=== PATIENT | female | born 1940 | race Caucasian/White ===

== ENCOUNTER → 2017-02-11 | Outpatient (CLI) | payer BC, OTHER ==
[~2017-02-11] MED LIST: CHOL2000 PO; FLUO40CA8 PO; FLUV25TA2 PO; LEVO50TA6 PO; MULTTAB58 PO; OPTIRAY 320 IV PRN; PENI500T2 PO; PRAV40TA2 PO; PRLSR20 PO; TRAMTAB5 PO; VESICARE PO
--- NOTE | 2017-02-11 16:07 | DIAGNOSTIC IMAGING REPORT ---
ABDOMEN AND PELVIS CT WITH IV AND ORAL CONTRAST CT DOSE: 329.65 mGycm HISTORY: Pain LLQ PAIN, MILD WEIGHT LOSS TECHNIQUE: Multiaxial CT images of the abdomen and pelvis were performed following the use of intravenous and oral contrast. COMPARISON STUDY: 09/04/2013 FINDINGS: Minimal bronchiectasis right middle lobe. Lung bases otherwise are clear. Liver is uniform in appearance. Spleen is unremarkable. Left kidney is atrophied. Right kidney shows a parapelvic cyst. IMPRESSION: Moderate increase in fecal material throughout the colon. There is no evidence for an obstructive pattern. There are several small reactive mesenteric nodes. IMPRESSION: 1. Increased fecal load throughout the colon consistent with a component of fecal stasis. 2. Study is otherwise negative. 3. Pre-existing atrophy left kidney. Electronically signed by: Braulio Mantilla M.D. 02/11/2017 4:05 PM Dictated Date/Time: 02/11/2017 4:02 PM
== END | disposition home or self-care (01) ==
LOC: C.CTS 14:45
PROVIDERS: ATTEND Internal Medicine Gastroenterology
DX: R10.32 Left lower quadrant pain (principal); N26.1 Atrophy of kidney (terminal)

== ENCOUNTER 2017-06-23 13:37 | Emergency (ER) | payer BC, OTHER ==
[~2017-06-23] VITALS: Ht 165.1 cm; Wt 58.0 kg
[~2017-06-23 13:37] MED LIST changes: -FLUV25TA2 PO; -OPTIRAY 320 IV PRN; -PENI500T2 PO
[2017-06-23 13:44] VITALS: TEMP 36.3; Ht 165.1 cm; Wt 58.0 kg
--- NOTE | 2017-06-23 14:43 | DIAGNOSTIC IMAGING REPORT ---
CT OF THE HEAD WITHOUT CONTRAST CLINICAL HISTORY: Fall. Facial trauma. COMPARISON STUDY: Head CT February 17, 2011. CT DOSE: 843.67 mGy.cm TECHNIQUE: Helical axial images of the head were obtained without IV contrast. Automated exposure control was utilized for the study. A dose lowering technique was utilized adhering to the principles of ALARA. FINDINGS: No acute intracranial hemorrhage, midline shift or mass effect is present. Ventricular system is stable. Basilar cisterns are patent. There are no extra-axial collections. White matter hypodensity suggests small vessel disease. A left periorbital contusion is present. The left globe is intact and there is no retrobulbar hematoma. There is no calvarial fracture. Facial bones are better depicted on the maxillofacial CT. IMPRESSION: 1. No acute intracranial findings. 2. No calvarial fracture. 3. Left periorbital contusion. Left globe intact with no retrobulbar hematoma. Electronically signed by: Mike Kang M.D. 06/23/2017 2:42 PM Dictated Date/Time: 06/23/2017 2:37 PM
--- NOTE | 2017-06-23 14:46 | DIAGNOSTIC IMAGING REPORT ---
FACIAL BONES-MXILLOFAC WITHOUT CLINICAL HISTORY: 77 years-old Female presenting with fall; L sided facial injury and pain. TECHNIQUE: Multidetector CT of the face was performed without the use of intravenous contrast. IV contrast: None. A dose lowering technique was used consistent with the principles of ALARA (as low as reasonably achievable). COMPARISON: None. CT DOSE (mGy.cm): The estimated cumulative dose is 843.67 inclusive of the head CT.. FINDINGS: [employer] topogram: Unremarkable. Paranasal sinuses and mastoid air cells clear. No acute osseous injury. Periapical lucency noted at the mandibular right central incisor. Periapical lucency with associated cortical breakthrough noted at the mandibular right first premolar along the buccal aspect. At this site, there is overlying inflammatory change along the buccal mucosa. No focal fluid collection to suggest odontogenic abscess. Inflammatory change does extend to the symphyseal region at the site of additional periapical lucency. Deep soft tissues of the face normal. Apparent soft tissue contusion of the left periorbital region. Orbits normal. Degenerative changes of the spine. Limited intracranial evaluation within normal limits. IMPRESSION: 1. No acute osseous injury of the face. 2. Left periorbital soft tissue contusion. 3. Inflammatory change along the buccal mucosa of the right body of the mandible overlying. While this may represent a soft tissue contusion, these findings are concerning for an odontogenic inflammatory/infectious process given the presence of adjacent cortical breakthrough and periapical lucency at the mandibular right first premolar and to a lesser extent at the mandibular right central incisor. Periapical lucencies concerning for periapical abscesses. No evidence of odontogenic abscess. Electronically signed by: Deon Jimenez M.D. 06/23/2017 2:45 PM Dictated Date/Time: 06/23/2017 2:39 PM
[2017-06-23] MEDS ORDERED: FLUV25TA2 PO (14:50)
--- NOTE | 2017-06-23 15:50 | DIAGNOSTIC IMAGING REPORT ---
LEFT HIP UNILATERAL 2 VIEWS CLINICAL HISTORY: Left hip pain status post fall. COMPARISON: CT of the abdomen and pelvis February 11, 2017. FINDINGS: Alignment of the left hip is anatomic. There is no acute fracture. Mild osteophytosis of the left hip is present. IMPRESSION: No acute fracture or dislocation of the left hip. Electronically signed by: Mike Kang M.D. 06/23/2017 3:49 PM Dictated Date/Time: 06/23/2017 3:48 PM
--- NOTE | 2017-06-23 15:53 | DIAGNOSTIC IMAGING REPORT ---
LEFT HAND MIN 3 VIEWS ROUTINE CLINICAL HISTORY: 77 years-old Female presenting with fall; L hand pain. TECHNIQUE: Frontal, oblique, and lateral views of the left hand were obtained. COMPARISON: None. FINDINGS: No acute fracture or malalignment is evident. Osteopenia may be present. Degenerative changes of the interphalangeal joint of the first finger suggested. No regional soft tissue swelling is appreciated. IMPRESSION: No acute osseous injury of the left hand. Degenerative changes as above. Electronically signed by: Deon Jimenez M.D. 06/23/2017 3:51 PM Dictated Date/Time: 06/23/2017 3:50 PM
--- NOTE | 2017-06-23 15:54 | DIAGNOSTIC IMAGING REPORT ---
LEFT RIBS UNILATERAL WITH PA CHEST CLINICAL HISTORY: Left sided rib pain after fall COMPARISON STUDY: Chest radiograph September 17, 2013. FINDINGS: No pneumothorax or pleural effusion is present. Interstitial thickening is likely chronic. No airspace opacities are identified. Cardiac size is normal. No acute left rib fractures are identified. IMPRESSION: No pneumothorax. No acute left rib fractures identified. Electronically signed by: Mike Kang M.D. 06/23/2017 3:52 PM Dictated Date/Time: 06/23/2017 3:49 PM
--- NOTE | 2017-06-23 15:59 | EMERGENCY ROOM VISIT NOTE ---
ED Visit Note First contact with patient: 15:55 I have personally seen and evaluated the patient with the physician assistant teacher. I agree with the diagnostic/management decisions and have personally been involved in these decisions and agree with the diagnosis.
[2017-06-23] MEDS ORDERED: PENI500T2 PO (16:11)
[2017-06-23] MEDS ORDERED: ACETAMINOPHEN 325 MG TAB PO STA (16:13)
[2017-06-23 16:45] VITALS: BP 138/72; PULSE 71; O2SAT 98
--- NOTE | 2017-06-24 14:53 | EMERGENCY ROOM VISIT NOTE ---
ED Visit Note First contact with patient: 13:54 Chief Complaint: I went for walk today and tripped and fell. History of Present Illness: Ms. Lopez is a 77-year-old white female who is brought into the ED via ambulance following a fall. EMS reports patient was stable and had no acute changes en route. Patient reports she went for a walk today, tripped over the uneven sidewalk and fell. She reports she tried to brace her fall but was unsuccessful. She does report she struck the pavement with her forehead and then landed on her ribs. She reports for the injury she was not experiencing any dizziness or lightheadedness, the time of the injury she had no loss of consciousness and since the injury she has had no dizziness, lightheadedness, visual changes, hearing changes, difficulty speaking, difficulty swallowing, difficulty ambulating/coordinating body movements, neck pain, back pain. Currently patient is complaining of pain in the left frontal area in the area of a hematoma, left rib pain, left hand pain and left hip pain. Currently she describes her left rib pain as her worst discomfort. She describes this as a sharp sensation and places it over the left lateral thorax. She rates this discomfort 4/10. Her pain is nonradiating. Her pain worsens with palpation and deep inspiration. She has not identified any alleviating factors related to the pain. She reports she has not had a medications for pain prior to arrival at the hospital. Additionally she complains of pain in the left frontal area just above her eyebrow the location of the hematoma. She describes this of stinging discomfort. She does not rate her discomfort. Her pain worsens with palpation of the superior orbit and the zygomatic arch area. She has not identified any alleviating factors related to the pain. Additionally she complains of left hand pain over the fourth and fifth metacarpals. She describes this as a throbbing sensation. She does not rate her discomfort. Her pain is nonradiating. Her pain worsens with palpation and flexion and extension of the fourth and fifth MCP joint Lastly she complains of left hip pain. She places this discomfort just inferior to the greater trochanter. She describes this pain as an achy sensation. Her pain is nonradiating. She has not identified any aggravating or alleviating factors related to the pain. Additionally she denies chest pain, shortness of breath, abdominal pain, nausea , vomiting, extremity weakness/numbness/tingling. Review of Systems: As noted above in history of present illness. All body systems were reviewed and found to be negative as noted above. Past Medical History: Gastric reflux, unspecified urinary problems, hypothyroidism, profound hearing loss, status post tonsillectomy, adenoidectomy , removal of benign adrenal gland tumor, unspecified left ear surgery. Current Medications: Medications Dose Route/Sig Max Daily Dose Days Date Category Luvox (Fluvoxamine Maleate) Unknown Strength Tab Unknown Dose PO 06/23/17 Reported Levothyroxine Sodium 50 Mcg Tab 1 Tab PO DAILY 09/17/13 Reported Prilosec (Omeprazole) 20 Mg Capcr 20 Mg PO DAILY 09/17/13 Reported Prozac (Fluoxetine HCl) 40 Mg Cap 40 Mg PO DAILY 09/17/13 Reported Allergies to Medications: Patient denies. Social History: Patient is not currently employed; she lives alone and feels safe in her home environment; she denies tobacco use; she admits to alcohol use. Tetanus Immunization Status: Patient reports up-to-date. Physical Examination: Vital Signs: Date Time Temp Pulse Resp B/P (MAP) Pulse Ox O2 Delivery O2 Flow Rate FiO2 06/23/17 16:45 71 18 138/72 98 06/23/17 13:44 36.3 76 18 159/77 97 Room Air GENERAL: 77-year-old female in mild distress due to pain, nontoxic-appearing, afebrile and hemodynamically stable. NEUROLOGICAL: Awake, alert and oriented to person, place and time. Answering questions appropriately and following commands. Normal gait. Good hand eye coordination. No focal motor or sensory deficits. Romberg test negative. Cranial nerves II through XII grossly intact. Good short-term and long-term recall. Normal rapid alternate movements of the hands and fingers. Normal heel fernandez test. Able to draw the face o'clock. Able to spell backwards. SKIN: Warm, dry and pink. Left Frontal Area: Abrasion superior to the superior orbital ridge with no active bleeding. Left Hand: Patient has a few superficial abrasions over the volar and dorsal surface of the hand without bleeding. HEENT: Atraumatic and normocephalic. Skull: No bony deformity, depressions, tenderness, swelling or ecchymosis. No raccoon's eyes or barreto signs. No drainage from the ears of the nostril; no hemotympanum. Face: Soft tissue noted above under SKIN. The area of her abrasion over the left supraorbital ridge is tender to palpation and she also has mild tenderness over the left zygomatic arch. I do not appreciate any bony deformity. There is early ecchymosis forming. PERRLA. EOMI without nystagmus. No malocclusion. Airway patent. No intraoral trauma although after review of CT scan I do note she has multiple areas of decaying teeth and there is erythema and edema over the right mandibular gingiva consistent with an abscess. Speech normal. No lymphadenopathy. Trachea midline. No jugular venous distention. BACK: No tenderness over the bony cervical, thoracic and lumbar spine. Full range of motion of the cervical spine. No tenderness throughout the paraspinous muscles. No CVA tenderness. THORAX: Lungs sounds are clear to auscultation and equal bilaterally with symmetrical chest wall. No wheezing, rales or rhonchi. Moderate tenderness over the lateral chest wall in the areas of ribs 6 through 8. I do not appreciate any bony crepitus, bony deformities, subcutaneous air. ABDOMEN: Flat, soft and nontender. Positive bowel sounds in all quadrants. No guarding, rigidity or organomegaly. PELVIS: Stable and nontender to compression and rock. She did have mild tenderness just inferior to the left great trochanter without bony deformity or crepitus. She has full range of motion of the hip in all directions against resistance. Distal pulses, capillary refill and sensation is intact and equal bilaterally. LEFT UPPER EXTREMITY: No gross bony deformities. No tenderness in the shoulder , humerus, elbow, proximal forearm or wrist. Mild tenderness over the fourth and fifth metacarpals with early bruising. I do not appreciate any bony deformity or crepitus. She has full range of motion in flexion and extension of the MCP, PIP and DIP joints. Throughout the finger the skin was warm and pink and capillary refill is brisk. She is able to distinguish light sensations through all dermatomes. ED Course: Patient is assessed as noted above. Patient's medication list was reviewed. Patient was given ice and 650 mg of acetaminophen by mouth for her pain. PA Chest with Left Rib X-Rays: Were read by myself and the radiologist showing no infiltrates, effusions or pneumothorax. Normal heart silhouette. No left sided rib fractures identified. Left Hand Pain: Was read by myself and the radiologist showing no acute fractures or dislocations. Radiologist notes degenerative changes at the interphalangeal joint of the first finger. Head CT: Was reviewed by myself and read by the radiologist showing no acute intracranial findings or skull fractures. Left periorbital contusion was noted. The globe was intact and there was no retrobulbar hematoma. Facial CT: Was reviewed by myself and read by the radiologist showing no acute fractures of the face. Oncing for abscess. Left Hip X-Rays: Were read by myself and the radiologist showing no acute fractures or dislocations.e again the left periorbital contusion was noted. Additionally radiologist notes inflammatory changes along the right mandible concerning for abscess. Patient's wounds were cleansed with antibacterial soap and water and covered with bacitracin dressings. Patient was reassessed multiple times during her stay in the emergency department. Patient's case was reviewed with Dr. Oseguera; we agreed on diagnostic approach, treatment, disposition and plan. Patient was educated about today's findings and instructed on her treatment plan ; she verbalizes understanding and agreement with this plan. Clinical Impression: Fall. Left frontal facial contusion and abrasion. Left lateral rib pain. Left hand contusion. Left hip pain. Dental abscess. Disposition: Patient discharged home in stable condition; prior to departure she was reassessed and subjectively reported she was feeling much better. Plan: A she was placed on a sliding pain medication scale of ibuprofen, acetaminophen and [place]; her name was checked in the state database and no red flags were noted and she was given appropriate narcotic precautions. Patient was encouraged use ice on areas of pain and swelling 5-6 times a day for 15-20 minutes. Patient was encouraged to wash her wound with soap and water and cover with a small amount of antibiotic. She was educated on signs of infection. Patient was informed an incidental finding of a possible dental abscess was found that she was prescribed 500 mg of Pen-Vee K 4 times a day for 10 days and encouraged to follow-up with her dentist. Patient was encouraged to avoid alcohol use; she was told that alcohol use in the state signs of head injury. Patient was educated on signs of head injury. Patient was encouraged to follow-up with her PCP for recheck for any signs of infection or worsening/uncontrolled pain. Patient was encouraged return ED for any signs of infection, signs of head injury, uncontrolled pain or any new/concerning symptoms.
== END 2017-06-23 16:51 | disposition home or self-care (01) ==
LOC: C.EDB 13:39 → C.EDA 16:51
DX: S00.83XA Contusion of other part of head, initial encounter (principal); S60.222A Contusion of left hand, initial encounter; S00.81XA Abrasion of other part of head, initial encounter; W01.0XXA Fall on same level from slipping, tripping and stumbling without subsequent striking against object, initial encounter; R07.81 Pleurodynia; M25.552 Pain in left hip; K04.7 Periapical abscess without sinus; E03.9 Hypothyroidism, unspecified; K21.9 Gastro-esophageal reflux disease without esophagitis; Z98.890 Other specified postprocedural states; Z79.899 Other long term (current) drug therapy

== ENCOUNTER → 2017-07-19 | Outpatient (CLI) | payer BC, OTHER ==
[~2017-07-19] MED LIST changes: -CHOL2000 PO; +FLUV25TA2 PO; -MULTTAB58 PO; -PRAV40TA2 PO; -TRAMTAB5 PO; -VESICARE PO
--- NOTE | 2017-07-20 07:58 | MAMMOGRAPHY REPORT ---
BILATERAL DIGITAL SCREENING MAMMOGRAM TOMOSYNTHESIS WITH CAD: 07/19/2017 CLINICAL HISTORY: Routine screening. Patient has no complaints. TECHNIQUE: Breast tomosynthesis in addition to standard 2D mammography was performed. Current study was also evaluated with a Computer Aided Detection (CAD) system. COMPARISON: Comparison is made to exams dated: 06/21/2016 mammogram, 06/05/2015 mammogram, 06/04/2014 m ammogram, 05/01/2013 mammogram, 04/18/2012 mammogram, and 04/14/2011 mammogram - [facility] nter. BREAST COMPOSITION: There are scattered areas of fibroglandular density in both breasts. FINDINGS: There is a stable intramammary lymph node in the upper outer quadrant of the left breast, and a few punctate benign-appearing microcalcifications. No suspicious mass, architectural distortio n or cluster of suspicious microcalcifications is seen. IMPRESSION: ACR BI-RADS CATEGORY 1: NEGATIVE There is no mammographic evidence of malignancy. A 1 year screening mammogram is recommended. The pa tient will receive written notification of the results. Approximately 10% of breast cancers are not detected with mammography. A negative mammographic report should not delay biopsy if a clinically suggestive mass is present. Sandra Mcgill M.D. ay/:07/19/2017 22:22:48 [place]: Apryl PICKETT)(M), [facility] letter sent: Normal 1/2 BI-RADS Code: ACR BI-RADS Category 1: Negative
== END | disposition home or self-care (01) ==
LOC: C.MAMM 15:25
PROVIDERS: ATTEND Family Medicine
DX: Z12.31 Encounter for screening mammogram for malignant neoplasm of breast (principal)

== ENCOUNTER 2022-10-15 07:09 | Inpatient (IN) ==
--- NOTE | 2022-10-15 07:24 | Emergency Department Note ---
History of Present Illness General Chief complaint: Urinary Symptoms Time Seen by Provider: 10/15/22 07:20 History of Present Illness This 82-year-old female patient presents to the emergency department via ambula [facility] for evaluation of urinary tract infection symptoms. The patient is a somewhat poor historian, but is able to give a history. Additional history was obtained from EMS and nursing staff. She states that about 2 weeks ago she started feeling queasy in her stomach. She will occasionally get cramps in the LLQ, but they are short lived and resolve. She has a history of alternating constipation and overflow diarrhea for which she takes MiraLAX. Mostly having nausea and urinary symptoms currently. She has been having burning with urination and urinary frequency recently. She had been putting off getting checked out because she had an appt with her manager of medical, but they told her she would need to see her PCP. Her PCP checked her urine and she was diagnosed with a UTI per patient and they started her on Macrobid and Zofran. She has a history of emphysema and a nodule on her lung, but has been coughing more than usual the past couple days. Denies any shortness of breath, but her pulse ox was a little low in the ambulance. Denies any chest pain, abdominal pain, or vomiting. She denies any fevers. Home Medications Medication Instructions Recorded Confirmed Type fluoxetine 40 mg capsule 80 mg PO QAM 10/07/18 08/23/22 History levothyroxine 50 mcg tablet 50 mcg PO QAM 10/07/18 08/23/22 History cholecalciferol (vitamin D3) 25 25 mcg PO DAILY 03/21/20 08/23/22 History mcg (1,000 unit) capsule loratadine 10 mg tablet (Allergy 10 mg PO DAILY 03/21/20 08/23/22 History Relief (loratadine)) vibegron 75 mg tablet (Gemtesa) 75 mg PO DAILY #90 tabs 01/22/22 08/23/22 Rx fluticasone propionate 50 2 spray intranasal DAILY PRN Nasal 04/07/22 08/23/22 Rx mcg/actuation nasal Congestion #15.8 mL spray,suspension Allergies Allergy/AdvReac Type Severity Reaction Status Date / Time No Known Drug Allergies Allergy Verified 08/23/22 13:52 Past Med/Surg History Medical History (Updated 10/15/22 @ 14:11 by Eun Franks PA-C) CKD (chronic kidney disease) Left kidney atrophy, 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 and A total of 10 systems reviewed and were otherwise negative Physical Exam Vital Signs Vital Signs - 24 hr 10/15/22 06:52 10/15/22 08:18 10/15/22 09:40 Temperature 37.6 C H Temperature Source Oral Pulse Rate 98 H Pulse Rate [Apical] 98 H Respiratory Rate 18 18 Respiratory Effort / Characteristics Non-Labored Spontaneous Non-Labored Spontaneous Respiratory Depth Normal Normal Respiratory Pattern Regular Regular Blood Pressure 104/67 Blood Pressure [Right Arm] 104/67 Blood Pressure Mean 79 Blood Pressure Mean [Right Arm] 79 Blood Pressure Position Sitting Blood Pressure Position [Right Arm] Sitting Pulse Oximetry 96 94 88 L Oxygen Delivery Method Room Air Room Air Nasal Cannula Oxygen Flow Rate 3 Sepsis Recent Fever Within 48 Hours No Sepsis New/Unexplained Change in Mental Status N/A Sepsis Action Taken by Nursing No Action Required 10/15/22 09:41 10/15/22 10:00 Temperature Temperature Source Pulse Rate Pulse Rate [Apical] 93 H Respiratory Rate 18 Respiratory Effort / Characteristics Respiratory Depth Respiratory Pattern Blood Pressure Blood Pressure [Right Arm] 104/67 Blood Pressure Mean Blood Pressure Mean [Right Arm] 79 Blood Pressure Position Blood Pressure Position [Right Arm] Pulse Oximetry 96 94 Oxygen Delivery Method Nasal Cannula Nasal Cannula Oxygen Flow Rate 3 3 Sepsis Recent Fever Within 48 Hours Sepsis New/Unexplained Change in Mental Status Sepsis Action Taken by Nursing VITALS: Vitals are noted on the nurse's note and reviewed by myself. GENERAL: 82-year-old female, in no acute distress, non-diaphoretic, well- developed well-nourished. SKIN: Capillary refill <2 sec. No tenting of the skin. HEAD: Normocephalic, atraumatic. EARS: Hearing aids in place. External auditory canals clear, tympanic membranes pearly ballard without erythema or effusion bilaterally. EYES: PERRLA. EOMI. Conjunctivae without injection, sclerae without icterus. NOSE: Patent without discharge. MOUTH: Mucous membranes moist. Uvula midline. Airway patent. NECK: Supple without nuchal rigidity. HEART: Regular rate and rhythm without murmurs gallops or rubs. LUNGS: Clear to auscultation bilaterally without wheezes, rales or rhonchi. No retractions or accessory muscle use. ABDOMEN: Positive bowel sounds x 4. Normal tympanic percussion. Soft, nontend er, without masses or organomegaly. Winston sign negative. No guarding or rebound tenderness. No focal RLQ or LLQ tenderness. MUSCULOSKELETAL: No gross musculoskeletal defects. NEURO: Patient was alert and oriented to person place and time, but is somewhat distractible and goes off on some tangents during history and exam. No focal neurological deficits. Course Administered Medications Discontinued Medications Sodium Chloride (Nss) 500 mls @ 999 mls/hr IV .Q31M ONE Stop: 10/15/22 08:10 Last Infusion: 10/15/22 09:20 Dose: 0 mls/hr Documented By: Admin: 10/15/22 08:47 Dose: 999 mls/hr Documented By: JEFFERY Ondansetron HCl (Ondansetron Inj 2 Mg/Ml 2 Ml Vial) 4 mg IV NOW STA Stop: 10/15/22 07:41 Last Admin: 10/15/22 08:47 Dose: 4 mg Documented By: JEFFERY Medical Decision Making Differential Diagnosis Differential diagnosis includes UTI, constipation, obstruction, gastroenteritis, pancreatitis, cholecystitis, pneumonia, COVID, RSV, influenza, sepsis, OR, other cardiopulmonary etiology, or others. Laboratory Data Attestation: I reviewed the patient's lab results. Result diagrams: 10/15/22 07:47 10/15/22 07:47 Lab Results 10/15/22 10/15/22 10/15/22 Range/Units 07:47 07:47 07:47 WBC 13.03 H (4.8-10.8) K/ul RBC 3.53 L (3.93-5.22) M/uL Hgb 10.0 L (12.0-16.0) g/dl Hct 31.5 L (34.1-44.9) % MCV 89.2 (80.0-100.0) fL MCH 28.3 (25.0-34.0) pg MCHC 31.7 L (32.0-36.0) g/dL RDW Std Deviation 44.9 (36.4-46.3) fL RDW Coeff of Aime 13.7 (11.5-14.5) % Plt Count 470 H (130-400) K/uL MPV 9.6 (9.4-12.3) fL Immature Gran % (Auto) 0.5 % Neut % (Auto) 84.4 % Lymph % (Auto) 6.4 % [place] % (Auto) 7.8 % Eos % (Auto) 0.5 % Baso % (Auto) 0.4 % Neut # (Auto) 10.99 H (1.4-6.5) K/uL Lymph # (Auto) 0.84 L (1.2-3.4) K/uL [place] # (Auto) 1.02 H (0.24-0.82) K/uL Eos # (Auto) 0.07 (0-0.50) K/uL Baso # (Auto) 0.05 (0-0.2) K/uL Immature Gran # (Auto) 0.06 H (0.00-0.02) K/uL Sodium 134 L (136-145) mmol/L Potassium 4.5 (3.5-5.1) mmol/L Chloride 100 (98-107) mmol/L Carbon Dioxide 25 (21-32) mmol/L Anion Gap 9 (3-11) BUN 9 (6-23) mg/dl Creatinine 0.86 (0.6-1.2) mg/dl Est Cr Clr Drug Dosing 42.4 ml/min Est GFR ( Amer) 73.4 ml/min Est GFR (Non-Af Amer) 63.4 ml/min BUN/Creatinine Ratio 10.5 (10-20) Glucose 128 H (70-99(Fasting)) mg/dl Lactate (0.4-2.0) mmol/L Calcium 8.1 L (8.5-10.1) mg/dl Total Bilirubin 0.4 (0.2-1.0) mg/dl AST 18 (13-39) U/L ALT 10 (7-52) U/L Alkaline Phosphatase 72 (34-104) U/L Troponin I High Sens 359.1 H* (0-14) pg/ml Total Protein 7.0 (6.0-8.3) gm/dl Albumin 3.3 L (3.4-5.0) gm/dl Globulin 3.7 (2.5-4.0) gm/dl Albumin/Globulin Ratio 0.9 (0.9-2) Lipase 6 L (11-82) U/L Procalcitonin (0-0.5) ng/ml SARS-CoV-2 (PCR) NEGATIVE (Negative) Influenza Type A (PCR) Negative (Neg) Influenza Type B (PCR) Negative (Neg) RSV (RT-PCR) Negative (Neg) 10/15/22 10/15/22 Range/Units 09:14 09:14 WBC (4.8-10.8) K/ul RBC (3.93-5.22) M/uL Hgb (12.0-16.0) g/dl Hct (34.1-44.9) % MCV (80.0-100.0) fL MCH (25.0-34.0) pg MCHC (32.0-36.0) g/dL RDW Std Deviation (36.4-46.3) fL RDW Coeff of Aime (11.5-14.5) % Plt Count (130-400) K/uL MPV (9.4-12.3) fL Immature Gran % (Auto) % Neut % (Auto) % Lymph % (Auto) % [place] % (Auto) % Eos % (Auto) % Baso % (Auto) % Neut # (Auto) (1.4-6.5) K/uL Lymph # (Auto) (1.2-3.4) K/uL [place] # (Auto) (0.24-0.82) K/uL Eos # (Auto) (0-0.50) K/uL Baso # (Auto) (0-0.2) K/uL Immature Gran # (Auto) (0.00-0.02) K/uL Sodium (136-145) mmol/L Potassium (3.5-5.1) mmol/L Chloride (98-107) mmol/L Carbon Dioxide (21-32) mmol/L Anion Gap (3-11) BUN (6-23) mg/dl Creatinine (0.6-1.2) mg/dl Est Cr Clr Drug Dosing ml/min Est GFR ( Amer) ml/min Est GFR (Non-Af Amer) ml/min BUN/Creatinine Ratio (10-20) Glucose (70-99(Fasting)) mg/dl Lactate 0.9 (0.4-2.0) mmol/L Calcium (8.5-10.1) mg/dl Total Bilirubin (0.2-1.0) mg/dl AST (13-39) U/L ALT (7-52) U/L Alkaline Phosphatase (34-104) U/L Troponin I High Sens (0-14) pg/ml Total Protein (6.0-8.3) gm/dl Albumin (3.4-5.0) gm/dl Globulin (2.5-4.0) gm/dl Albumin/Globulin Ratio (0.9-2) Lipase (11-82) U/L Procalcitonin 0.05 (0-0.5) ng/ml SARS-CoV-2 (PCR) (Negative) Influenza Type A (PCR) (Neg) Influenza Type B (PCR) (Neg) RSV (RT-PCR) (Neg) Imaging Data Radiologist's Impression: Chest X-Ray 10/15/22 07:40 XR chest 1V portable HISTORY: Cough. COMPARISON: Chest CT 10/08/2022. FINDINGS: No pneumothorax. No pleural effusions. There is diffuse interstitial thickening with hazy bilateral airspace opacities most pronounced on the right. This remains unchanged from the prior chest CT. The heart is normal in size. No acute fractures identified. IMPRESSION: No change in the diffuse interstitial thickening and hazy bilateral airspace opacities. This could be due to pulmonary edema or an atypical pneumonitis. ACT 112: Negative or not required by law. Electronically signed by: Brayan Dwyer M.D. 10/15/2022 8:51 AM KUB X-Ray 10/15/22 07:42 KUB CLINICAL HISTORY: Abdominal pain. eval constipation/obstruction COMPARISON STUDY: CT of the abdomen and pelvis February 11, 2017 and KUB January 29, 2022. FINDINGS: There is no evidence for a bowel obstruction. Moderate amount of gas within the rectum is present. There is minimal stool within the rectum. Moderate amount stool within the colon is present. Left abdominal calcifications may be within the cortex of the left kidney. Nonobstructing left renal calculi could appear similar. A left pelvic calcification represents a phlebolith. There is dextroscoliosis of the lumbar spine. IMPRESSION: 1. No evidence for a bowel obstruction. 2. Moderate amount of stool within the colon. Minimal stool within the rectum. ACT 112: Negative or not required by law. Electronically signed by: Mike Kang M.D. 10/15/2022 8:43 AM MDM Narrative I examined the patient. An IV lock was placed and labs are drawn. The patient was placed on 2 L of oxygen by nasal cannula with improvement of her pulse ox to 98%. She was given 500 mL normal saline solution bolus. She was given Zofran 4 mg IV for her nausea. EKG was interpreted by myself and Dr. Soto and shows sinus rhythm at 93 bpm with premature supraventricular complexes with changes in the anterior leads compared to her previous EKGs, but no obvious acute ST or T wave changes. Chest x-ray and KUB reviewed by myself and read by radiology as above and showed possible pulmonary edema or an atypical pneumonitis as well as a moderate amount of stool within the colon and minimal stool within the rectum, but no evidence for obstruction. White blood cell count is elevated at 13.03. Hemoglobin low at 10. Sodium 134 with normal potassium. Glucose slightly elevated at 128. CMP and lipase otherwise unremarkable. High-sensitivity troponin was elevated at 359.1. Urinalysis with trace ketones, but otherwise negative. The patient was independently evaluated by Dr. Soto, who agreed with my assessment and treatment plan. Due to the elevated troponin the patient will be admitted for further evaluation and treatment. The patient currently denies any chest pain, only the nausea and confusion which she thought was secondary to her UTI. Urinalysis currently without evidence for UTI after treatment with outpatient Macrobid. I spoke with the on-call hospitalist who agreed to admit the patient for further evaluation and treatment. Please refer to his dictation for further details. The patient's care was transferred in stable condition. Impression & Plan Elevated troponin, Nausea, Constipation Discharge Plan Visit Data Chief Complaint: Urinary Symptoms ED Provider: Charles Soto ED Midlevel Provider: Eun Franks Discharge Problem: Elevated troponin, Nausea, Constipation Patient Disposition: Admitted As Inpatient Condition: Good Discharge Instructions Interventions: ED Discharge Assessment Last Done: 10/15/22 13:22
[2022-10-15] MEDS ORDERED: ONDANSETRON INJ 2 MG/ML 2 ML VIAL IV STA (07:40)
[2022-10-15] MEDS ORDERED: SODIUM CHLORIDE 0.9% 500 ML IV ONE (07:40)
[2022-10-15 07:59] LABS: Basophils # (auto) 0.05 K/uL (0-0.2); Basophils % (auto) 0.4 %; Eosinophils # (auto) 0.07 K/uL (0-0.50); Eosinophils % (auto) 0.5 %; Hematocrit (blood only) 31.5 % (34.1-44.9); Immature Granulocytes # (auto) 0.06 K/uL (0.00-0.02); Immature Granulocytes % (auto) 0.5 %; Lymphocytes # (auto) 0.84 K/uL (1.2-3.4); Lymphocytes % (auto) 6.4 %; Mean Corpuscular Hemoglobin 28.3 pg (25.0-34.0); Mean Corpuscular Hgb Conc 31.7 g/dL (32.0-36.0); Mean Corpuscular Volume 89.2 fL (80.0-100.0); Mean Platelet Volume 9.6 fL (9.4-12.3); Monocytes # (auto) 1.02 K/uL (0.24-0.82); Monocytes % (auto) 7.8 %; Neutrophils # (auto) 10.99 K/uL (1.4-6.5); Neutrophils % (auto) 84.4 %; Platelet Count 470 K/uL (130-400); RDW Coefficient of Variation 13.7 % (11.5-14.5); RDW Standard Deviation 44.9 fL (36.4-46.3); Red Blood Count 3.53 M/uL (3.93-5.22); White Blood Count 13.03 K/ul (4.8-10.8)
[2022-10-15 08:31] LABS: Potassium 4.5 mmol/L (3.5-5.1)
[2022-10-15 08:32] LABS: Albumin Globulin Ratio 0.9 (0.9-2); Albumin Level 3.3 gm/dl (3.4-5.0); BUN Creatinine Ratio 10.5 (10-20); Bilirubin,Total 0.4 mg/dl (0.2-1.0); Calcium 8.1 mg/dl (8.5-10.1); Creatinine Clr Calc Pharmacy 42.4 ml/min; Est GFR (African American) 73.4 ml/min; Est GFR (Non-African American) 63.4 ml/min; Globulin 3.7 gm/dl (2.5-4.0)
[2022-10-15 08:34] LABS: Troponin I High Sensitivity 359.1 pg/ml (0-14)
--- NOTE | 2022-10-15 08:44 | XRay Report ---
KUB CLINICAL HISTORY: Abdominal pain. eval constipation/obstruction COMPARISON STUDY: CT of the abdomen and pelvis February 11, 2017 and KUB January 29, 2022. FINDINGS: There is no evidence for a bowel obstruction. Moderate amount of gas within the rectum is p resent. There is minimal stool within the rectum. Moderate amount stool within the colon is present. Left abdominal calcifications may be within the cortex of the left kidney. Nonobstructing left renal calculi could appear similar. A left pelvic calcification represents a phlebolith. There is dextrosco liosis of the lumbar spine. IMPRESSION: 1. No evidence for a bowel obstruction. 2. Moderate amount of stool within the colon. Minimal stool within the rectum. ACT 112: Negative or not required by law. Electronically signed by: Mike Kang M.D. 10/15/2022 8:43 AM
[2022-10-15 08:48] LABS: Influenza A virus by PCR Negative (Neg); Influenza B virus by PCR Negative (Neg); RSV by PCR Negative (Neg); SARS CoV2 RNA(COVID-19) Ceph NEGATIVE (Negative)
--- NOTE | 2022-10-15 08:52 | XRay Report ---
XR chest 1V portable HISTORY: Cough. COMPARISON: Chest CT 10/08/2022. FINDINGS: No pneumothorax. No pleural effusions. There is diffuse interstitial thickening with hazy b ilateral airspace opacities most pronounced on the right. This remains unchanged from the prior chest CT. The heart is normal in size. No acute fractures identified. IMPRESSION: No change in the diffuse interstitial thickening and hazy bilateral airspace opacities. This could be due to pulmonary edema or an atypical pneumonitis. ACT 112: Negative or not required by law. Electronically signed by: Brayan Dwyer M.D. 10/15/2022 8:51 AM
--- NOTE | 2022-10-15 09:20 | Emergency Department Note ---
ED Visit Note I have personally evaluated this patient examined her and reviewed the pertinent labs and data. I have discussed the case with Eun, the physician business development assistant and agree with the plan. Please refer to the PA note. This patient was recently treated for UTI she says she has had some weakness she denies any chest pain or shortness of breath from a. She is somewhat of a vague/poor historian. On my exam she is resting comfortably and in no distress. Her troponin is significantly elevated. Her EKG does not show acute STEMI however the anterior leads look slightly different than before. I do think she will need to come in the hospital for further cardiac evaluation. . : Constipation Qualifiers: Constipation type: unspecified constipation type Qualified Code(s): K59.00 - Constipation, unspecified
--- NOTE | 2022-10-15 11:02 | History & Physical Report ---
Date of Service October 15, 2022 Assessment & Plan (1) Elevated troponin: Plan: pt presents with nausea and elevated troponin, there are non specific changes on ECG, pt will be put on aspirin and an echo will be ordered Her symptoms do not sound significant to be cardiac in origin she does have risk factors of history of smoking This may be demand ischemia from her chronic lung disease (2) COPD (chronic obstructive pulmonary disease): Plan: pt has a history of tobacco abuse and pulmonary nodules, previous bx showed non necrotizing granulomatous inflammation, generally not on inhaled medication Patient may be progressing with her lung disease may benefit from a two-step prior to discharge (3) CKD (chronic kidney disease): Plan: Pt has CKD 3 and admission CR is in her baseline (4) Hypothyroidism: Plan: continues on synthroid 50 mcg tsh check on am labs (5) Anxiety: Plan: continues on prozAC 80 MG, she has beed diagnosed with OCD, PTSD and anxiety (6) DVT prophylaxis: Plan: Heparin for DVT prevention History of Present Illness Primary Care Provider: Sam Hays MD 82 F presents to the emergency department via ambulance for evaluation of nausea urinary tract infection symptoms. She states that about 2 weeks ago she started feeling queasy in her stomach, cramps in the LLQ. She has a history of alternating constipation and overflow diarrhea for which she takes MiraLAX. She has been having burning with urination and urinary frequency recently. Her PCP checked her urine and she was diagnosed with a UTI per patient and they started her on Macrobid and Zofran. She has a history of emphysema and a nodule on her lung, she has chronic cough that is non productive. Denies any shortness of breath, but her pulse ox was low in the ambulance. Denies any chest pain, abdominal pain, or vomiting. She denies any fevers. On presentation she has elevated troponin, minor lateral changes on ECG she denies any chest pain pressure palpitations Presentation viral testing was negative for respiratory viruses Allergies Allergy/AdvReac Type Severity Reaction Status Date / Time No Known Drug Allergies Allergy Verified 08/23/22 13:52 Home Medications Medication Instructions Recorded Confirmed Type fluoxetine 40 mg capsule 80 mg PO QAM 10/07/18 08/23/22 History levothyroxine 50 mcg tablet 50 mcg PO QAM 10/07/18 08/23/22 History cholecalciferol (vitamin D3) 25 25 mcg PO DAILY 03/21/20 08/23/22 History mcg (1,000 unit) capsule loratadine 10 mg tablet (Allergy 10 mg PO DAILY 03/21/20 08/23/22 History Relief (loratadine)) vibegron 75 mg tablet (Gemtesa) 75 mg PO DAILY #90 tabs 01/22/22 08/23/22 Rx fluticasone propionate 50 2 spray intranasal DAILY PRN Nasal 04/07/22 08/23/22 Rx mcg/actuation nasal Congestion #15.8 mL spray,suspension Past Med/Surg History Medical History (Updated 10/15/22 @ 11:00 by Randal Jade MD) CKD (chronic kidney disease) Left kidney atrophy, 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 Surgical History H/O total adrenalectomy History of ear surgery STAPEDECTOMY History of nephrectomy History of tonsillectomy and adenoidectomy Family History Mother Diabetes Other Family history non-contributory Social History Smoking Status: Unknown if ever smoked Hx Alcohol Use: Yes Hx Substance Use: No Preferred Language: Welsh Feels Safe at Home: Yes Childhood Exposure to Second-Hand Smoke: No caffeine: Yes (trying to limit as best she can) Seatbelt Use: always Review of Systems Review of Systems: Mild distress and fatigue Patient mostly bothered about urinary frequency and blood in her urine no headache, no visual changes no speech or swallowing issues no chest pain, pressure or palpitations Although shortness of breath was a chief complaint in the ER note the patient denied having shortness of breath to me., Chronic nonproductive cough no abdominal pain, nausea or vomiting, diarrhea or constipation dysuria, hematuria & frequency (patient sees urology) no focal joint pain or swelling no back pain, CVA tenderness or radicular pain no bruising, bleeding or rashes no focal signs of weakness or numbness or altered sensation no complaints of anxiety or depression.. Physical Exam Physical Exam: The patient appeared well nourished and normally developed. Vital signs as documented. Head exam is normocephalic atraumatic She is extremely hard of hearing Neck is without JVD, thyromegaly, or carotid bruits. Lungs are clear to auscultation, no focal loss of breath sounds Cardiac exam, Rhythm is regular.. No murmurs, rubs or gallops. Abdominal exam reveals normal bowel sounds, soft non tender, no masses Extremities are nonedematous and both pedal pulses are present Neurologic exam is alert and oriented, no focal loss of strength or sensation Skin is without bruises or rashes Psychologically is without concerns for anxiety or depression.. Results & Data Results & Data ([facility]) Vital Signs (Past 12 Hours) Vital Signs Temp Pulse Pulse Resp BP BP Pulse Ox 10/15/22 10:00 93 H 18 104/67 94 10/15/22 09:41 96 10/15/22 09:40 88 L 10/15/22 08:18 98 H 18 104/67 94 10/15/22 06:52 99.7 F H 98 H 18 104/67 96 O2 Del Method O2 Flow Rate 10/15/22 10:00 Nasal Cannula 3 10/15/22 09:41 Nasal Cannula 3 10/15/22 09:40 Nasal Cannula 3 10/15/22 08:18 Room Air 10/15/22 06:52 Room Air Diagnostic Findings Chest X-Ray 10/15/22 07:40 XR chest 1V portable HISTORY: Cough. COMPARISON: Chest CT 10/08/2022. FINDINGS: No pneumothorax. No pleural effusions. There is diffuse interstitial thickening with hazy bilateral airspace opacities most pronounced on the right. This remains unchanged from the prior chest CT. The heart is normal in size. No acute fractures identified. IMPRESSION: No change in the diffuse interstitial thickening and hazy bilateral airspace opacities. This could be due to pulmonary edema or an atypical pneumonitis. ACT 112: Negative or not required by law. Electronically signed by: Brayan Dwyer M.D. 10/15/2022 8:51 AM KUB X-Ray 10/15/22 07:42 KUB CLINICAL HISTORY: Abdominal pain. eval constipation/obstruction COMPARISON STUDY: CT of the abdomen and pelvis February 11, 2017 and KUB January 29, 2022. FINDINGS: There is no evidence for a bowel obstruction. Moderate amount of gas within the rectum is present. There is minimal stool within the rectum. Moderate amount stool within the colon is present. Left abdominal calcifications may be within the cortex of the left kidney. Nonobstructing left renal calculi could appear similar. A left pelvic calcification represents a phlebolith. There is dextroscoliosis of the lumbar spine. IMPRESSION: 1. No evidence for a bowel obstruction. 2. Moderate amount of stool within the colon. Minimal stool within the rectum. ACT 112: Negative or not required by law. Electronically signed by: Mike Kang M.D. 10/15/2022 8:43 AM ECG Additional Comments: Sinus rhythm with some changes in the lateral T waves different from old EKG but nondiagnostic PG Care Time/CCT Total # of Minutes Spent Total Time Spent with Patient: Total time spent is greater than 50% in coordination of care (as documented) at patient's floor/unit and/or counseling patient: Coding Level of Care Code 71227 Initial Inpt Care Lvl 3 Diagnoses Elevated troponin R77.8 COPD (chronic obstructive pulmonary disease) J44.9 CKD (chronic kidney disease) N18.9 Hypothyroidism E03.9 Anxiety F41.9 DVT prophylaxis Z29.9
[2022-10-15] MEDS ORDERED: SENNA 8.6 MG TAB PO ONE (13:36)
[2022-10-15] MEDS ORDERED: NITROGLYCERIN SL 0.4 MG/TAB TAB SL PRN (13:36)
[2022-10-15] MEDS ORDERED: ACETAMINOPHEN 325 MG TAB PO PRN (13:36)
[2022-10-15] MEDS ORDERED: PROMETHAZINE HCL 12.5 MG in SODIUM CHLORIDE 0.9% 50 ML IV PRN (13:36)
[2022-10-15] MEDS ORDERED: ALUMINUM/MAGNESIUM SUSP 30 ML UDC PO PRN (13:36)
[2022-10-15] MEDS ORDERED: ONDANSETRON INJ 2 MG/ML 2 ML VIAL IV PRN (13:36)
[2022-10-15 13:54] LABS: Appearance Urine Clear (Clear); Bilirubin Urine Negative (Negative); Blood Urine Negative (Negative); Color Urine Dark Yellow; Glucose Urine UA Negative (Negative); Ketones Urine Trace (Negative); Leukocyte Esterase Urine Negative (Negative); Nitrite Urine Negative (Negative); Protein Urine Negative (Negative); Specific Gravity Urine 1.007 (1.000-1.030); Urobilinogen Urine Negative (Negative)
[2022-10-15] MEDS ORDERED: FAMOTIDINE 20 MG in SYRINGE 3 ML IV ONE (14:00)
[2022-10-15] MEDS: cefTRIAXone SODIUM 1,000 MG in DEXTROSE 5% AD-VAN 50 ML IV SCH (15:23)
--- NOTE | 2022-10-15 17:00 | XCELERA ---
[id number]
[2022-10-15] MEDS: ASPIRIN 81 MG ECTAB PO SCH (17:49)
[2022-10-15] MEDS: FAMOTIDINE 20 MG TAB PO SCH (21:46)
[2022-10-15] MEDS: HEPARIN SOD 5,000 UNIT/0.5 ML VIAL SQ SCH (21:46)
[2022-10-16] MEDS: LEVOTHYROXINE SODIUM 50 MCG TABLET PO SCH (05:57)
--- NOTE | 2022-10-16 06:58 | Electrocardiogram Report ---
Test Reason : Blood Pressure : / mmHG Vent. Rate : 093 BPM Atrial Rate : 093 BPM P-R Int : 136 ms QRS Dur : 080 ms QT Int : 374 ms P-R-T Axes : 009 043 058 degrees QTc Int : 465 ms Poor data quality, interpretation may be adversely affected Sinus rhythm with Premature supraventricular complexes Anterior infarct , age undetermined T wave abnormality, consider anterior ischemia Abnormal ECG When compared with ECG of 18-FEB-2020 08:35, Premature supraventricular complexes are now Present T wave inversion now evident in Anterior leads Confirmed by Jorge Luis Adam ([id number]) on 10/16/2022 6:57:44 AM Referred By: REFERRED SELF Confirmed By:Jorge Luis Adam
[2022-10-16 07:05] LABS: Hematocrit (blood only) 32.1 % (34.1-44.9); Hemoglobin 10.2 g/dl (12.0-16.0); Mean Corpuscular Hemoglobin 28.3 pg (25.0-34.0); Mean Corpuscular Hgb Conc 31.8 g/dL (32.0-36.0); Mean Corpuscular Volume 88.9 fL (80.0-100.0); Mean Platelet Volume 10.1 fL (9.4-12.3); Platelet Count 500 K/uL (130-400); RDW Coefficient of Variation 13.6 % (11.5-14.5); RDW Standard Deviation 44.6 fL (36.4-46.3); Red Blood Count 3.61 M/uL (3.93-5.22); White Blood Count 9.79 K/ul (4.8-10.8)
[2022-10-16 07:23] LABS: BUN Creatinine Ratio 13.9 (10-20); Calcium 8.2 mg/dl (8.5-10.1); Creatinine Clr Calc Pharmacy 50.7 ml/min; Est GFR (Non-African American) 78.5 ml/min; Magnesium 2.1 mg/dl (1.7-2.4); Potassium 4.8 mmol/L (3.5-5.1)
--- NOTE | 2022-10-16 08:24 | Hospitalist Progress Note ---
Date of Service October 16, 2022 Assessment & Plan (1) Elevated troponin: Plan: Presented with LLQ cramps/nausea, UTI sx x 2 weeks with burning/frequency Nausea and elevated troponin, there are non specific changes on ECG, pt will be put on aspirin 81mg daily Trop 359--> 170--> 126. NO CHEST PAIN reported. No further nausea or abdominal pain reported. Suspect demand ischemia from possible UTI/anemia/volume overload -- treatment as outlined Flu/RSV/COVID negative on admit (?if recent viral process) ECHO obtained -- no wma, but does note hyperdynamic systolic function, septal flattening during diastole suggests possible RV volume overload Was seen by pulm in past week, CT chest for monitoring at that time (had been complaining of GI symptoms at that time, ?viral illness vs volume overload) --> 1. Interval development of interlobular septal thickening with perihilar ground-glass airspace opacities most pronounced on the right. This suggests mild interstitial pulmonary edema. An atypical/viral pneumonitis could also have a s imilar appearance. 2. No change in 1.5 cm scarlike density within the right lower lobe. 3. Additional stable right lower lobe nodules measure up to 6 mm. 4. No new or enlarging pulmonary lesions identified. 5. Left axillary lymphadenopathy has improved/resolved. 6. Prominent mediastinal lymph nodes have slightly increased in size. This may be reactive. Continues on ASA 81mg daily -- can continue at dc, again no bleeding reported by patient Pulmonary toilet On 3L NC to maintain sats -- titrate as able as does NOT appear to be on O2 at home Given lasix 20mg PO x 1 for volume overload, monitor response and consider 20mg PO daily. Consider reaching out to her usual pulm doc if continued issues Also checking Iron/B12/folate given anemia w/ hgb in 10s on admit (prior 12s in [id number]), denies bleeding --> iron 19, trans % sat 7. Will order Venofer IV while inpatient. B12 low normal 305 Folate wnl Titrate O2 as able, consider 2 step prior to d/c (2) Hypoxia: Plan: Hx COPD, follows with Dr Squires, just seen last week. Biopsy of pulm nodule showed granulomatous inflammation. CT scan w/ bronchiectasis and multiple pulm nodules --> Needs 6 month f/u imaging Does not appear to be on O2 at home CT chest last week w/ possible mild interstitial pulmonary edema -- an atypical/viral pneumonitis could also have similar appearance ?if recent viral illness w/ +n/v/diarrhea and urinary symptoms. check stool pcr for further eval Flu/RSV/COVID negative on admit CXR No change in the diffuse interstitial thickening and hazy bilateral airspace opacities--> this could be due to pulmonary edema or an atypical pneumonitis. No pleuritic chest pain or hypotension to suggest DVT but not entirely excluded, ECHO w/ RV dilation/mildly reduced systolic function. Consider CTA for PE if no improvement w/ diuretics Currently 95% on 3L Lasix 20mg PO x 1 Check iron studies to r/o anemia causing shortness of breath, Venofer as outlined Added incentive spirometer, mucinex BID, continues on loratadine daily for allergy symptoms Titrate O2 to maintain sats, would 2 step prior to discharge -Add on scheduled duo nebs and azithromycin for atypical coverage in addition to ceftriaxone -Consider pulmonology consultation if not improving -Add on hypertonic saline nebs (3) Anemia: Plan: checking iron/b12/folate as above, hgb in 10s on admit but prior baselines in 10s Does have alternating diarrhea/constipation, will need to inquire about most recent endoscopy if ever had one done. Prior Pulm notes referral to GI but patient wants to see doctor and not [employer]IST or PA and addressing issues with PCP It appears has seen GI in past, [facility], had been placed on miralax/colace and patient developed diarrhea and then that was stopped and started on Metamucil in evening and continue miralax in AM Prior GI notes state patient had been seen by [facility] in past, but wanted 2nd opinion, self reported history of lymphocytic colitis and chronic constipation, seen by [facility] and was at [facility] for second opinion Has had EGD/colonoscopy by Dr Lai and dx w/ colon polyps and esophagitis --> PET CT february 2020 w/o FDG acid disease. Iron studies w/ deficiency -- Venofer IV replacement ordered, continue while inpatient of note, patient is vegetarian. may benefit from PO supplementation at d/c but cautious use in patient w/ baseline constipation/diarrhea issues CBC in AM (4) UTI (urinary tract infection): Plan: Presented with LLQ cramps, nausea, UTI symptoms x 2 weeks with burning/frequency . Hx IBS/constipation/overflow diarrhea. Seen by PCP and dx w/ UTI and started on macrobid/zofran, placed on Ceftriaxone IV on admit UA w/o evidence for UTi, but again did get some macrobid [employer] WBC 13k on admit --> 9.7k Follows with [facility] for overactive bladder, has had PTNS Continue ceftriaxone IV x 3 days inpatient Monitor UOP. (5) COPD (chronic obstructive pulmonary disease): Plan: Hx smoking/pulm nodule, prior bx showed non necrotizing granulomatous inflammation, generally not on inhaled medication but follows with Dr Squires Consider 2 step prior to discharge, meds for COPD exacerbation however denied any sputum changes, no fever, recent UTI as above -Start scheduled DuoNebs and hypertonic saline as above for bronchiectasis and hypoxia (6) CKD (chronic kidney disease): Plan: Cr at baseline, monitor/renal dose meds/avoid nephrotoxic agents as able (7) Hypothyroidism: Plan: TSH wnl on check, 2.741 continues on synthroid 50 mcg daily (8) Anxiety: Plan: On admit ordered prozac, but patient doesnt take this any longer and is on paxil --> changed for medications (refused AM prozac) Hx OCD/PTSD/Anxiety (9) Constipation: Plan: added senna/docusate, no abd pain reported but KUB on admit w/ mod form stool noted (10) Nausea: Plan: reported on admit, ?constipation vs UTI vs hepatic congestion/volume overload Abx for UTI, lasix for overload, senna/docusate for constipation No nausea/vomiting reported currently (11) DVT prophylaxis: Plan: Heparin for DVT prevention Plan Disposition- continued inpatient stay Admission and Anticipated Discharge Date Admission Date: October 15, 2022 Supervising Physician Co-Signing Physician Notes PA Supervision Note: I did not personally see or examine the patient today, but I verified all [place] points of CASSANDRA Acharya's assessment and plan with the following exceptions/additions: Annotations made as above Subjective Evaluated this morning, sitting up in recliner, no acute distress. Remains with supplemental oxygen on but not wearing this at home. She states NOT having chest pain, no chest pain on admit, but there was an enzyme that was up they were worried about. Discussed could have been demand from her UTI -- chronic issues w/ frequency/urgency. She was on an antibiotics but that a yi doctor told her we would be using stronger antibiotics. She also inquired about why getting heparin - discussed DVT proph/less mobile in hospital. Declined this AM but discussed if remains inpatient should be agreeable. Does have issues/ w constipation for days at home, but discussed constipation can make nausea/abdominal pain worse. Rec'd and started stool softener as well. She does believe she has issues with her oxygen and was previously short of breath. Denies sputum production (no cough during exam). Review of Systems Review of Systems: All systems reviewed & are unremarkable except as noted in HPI & below Physical Exam Physical Exam: General: WD/WN female sitting up in liset, gown slightly disheveled, NAD HEENT: head normocephalic, atraumatic, mmm, trachea midline, ?JVD CV: RRR, +murmur, no pitting edema/calf tenderness, chronic venous stasis Resp: CTAB, diminished in the bases with scattered crackles, no wheezing, on 3L NC GI: +BS, nontender, slight distension : no rose MSK/Neuro: no focal deficit/slurred speech Psych: AOx person, place, time, intermittent forgetfulness Results & Data Results & Data ([facility]) Vital Signs (Past 12 Hours) Vital Signs Temp Pulse Pulse Resp BP BP Pulse Ox 10/16/22 08:19 36.4 C L 84 18 143/82 H 95 10/16/22 03:30 36.5 C 85 20 117/72 92 10/15/22 22:00 37 C 87 18 121/75 92 10/15/22 23:30 92 H 10/15/22 22:20 O2 Del Method O2 Flow Rate 10/16/22 08:19 Nasal Cannula 3 10/16/22 03:30 Nasal Cannula 3 10/15/22 22:00 Nasal Cannula 3 10/15/22 23:30 10/15/22 22:20 Nasal Cannula 3 Laboratory Results 10/16/22 10/16/22 10/16/22 Range/Units 09:49 09:49 05:59 WBC (4.8-10.8) K/ul RBC (3.93-5.22) M/uL Hgb (12.0-16.0) g/dl Hct (34.1-44.9) % MCV (80.0-100.0) fL MCH (25.0-34.0) pg MCHC (32.0-36.0) g/dL RDW Std Deviation (36.4-46.3) fL RDW Coeff of Aime (11.5-14.5) % Plt Count (130-400) K/uL MPV (9.4-12.3) fL Sodium (136-145) mmol/L Potassium (3.5-5.1) mmol/L Chloride (98-107) mmol/L Carbon Dioxide (21-32) mmol/L Anion Gap (3-11) BUN (6-23) mg/dl Creatinine (0.6-1.2) mg/dl Est Cr Clr Drug Dosing ml/min Est GFR ( Amer) ml/min Est GFR (Non-Af Amer) ml/min BUN/Creatinine Ratio (10-20) Glucose (70-99(Fasting)) mg/dl Calcium (8.5-10.1) mg/dl Magnesium (1.7-2.4) mg/dl Iron 19 L (35-150) mcg/dl TIBC 263 (250-450) mcg/dl Unsaturated IBC 244 (155-355) mcg/dl Transferrin % Sat 7 L (15-50) % Ferritin 102.7 (8-388) ng/ml Troponin I High Sens (0-14) pg/ml Vitamin B12 305 (180-914) pg/ml Folate 13.40 (>5.38) ng/ml TSH 2.741 (0.300-4.500) uIu/ml Urine Color Urine Appearance (Clear) Urine pH (4.5-7.5) Ur Specific [place] (1.000-1.030) Urine Protein (Negative) Urine Glucose (UA) (Negative) Urine Ketones (Negative) Urine Blood (Negative) Urine Nitrite (Negative) Urine Bilirubin (Negative) Urine Urobilinogen (Negative) Ur Leukocyte Esterase (Negative) 10/16/22 10/16/22 10/15/22 Range/Units 05:59 05:59 21:42 WBC 9.79 (4.8-10.8) K/ul RBC 3.61 L (3.93-5.22) M/uL Hgb 10.2 L (12.0-16.0) g/dl Hct 32.1 L (34.1-44.9) % MCV 88.9 (80.0-100.0) fL MCH 28.3 (25.0-34.0) pg MCHC 31.8 L (32.0-36.0) g/dL RDW Std Deviation 44.6 (36.4-46.3) fL RDW Coeff of Aime 13.6 (11.5-14.5) % Plt Count 500 H (130-400) K/uL MPV 10.1 (9.4-12.3) fL Sodium 138 (136-145) mmol/L Potassium 4.8 (3.5-5.1) mmol/L Chloride 105 (98-107) mmol/L Carbon Dioxide 28 (21-32) mmol/L Anion Gap 5 (3-11) BUN 10 (6-23) mg/dl Creatinine 0.72 (0.6-1.2) mg/dl Est Cr Clr Drug Dosing 50.7 ml/min Est GFR ( Amer) 91.0 ml/min Est GFR (Non-Af Amer) 78.5 ml/min BUN/Creatinine Ratio 13.9 (10-20) Glucose 95 (70-99(Fasting)) mg/dl Calcium 8.2 L (8.5-10.1) mg/dl Magnesium 2.1 (1.7-2.4) mg/dl Iron (35-150) mcg/dl TIBC (250-450) mcg/dl Unsaturated IBC (155-355) mcg/dl Transferrin % Sat (15-50) % Ferritin (8-388) ng/ml Troponin I High Sens 126.0 H* D (0-14) pg/ml Vitamin B12 (180-914) pg/ml Folate (>5.38) ng/ml TSH (0.300-4.500) uIu/ml Urine Color Urine Appearance (Clear) Urine pH (4.5-7.5) Ur Specific [place] (1.000-1.030) Urine Protein (Negative) Urine Glucose (UA) (Negative) Urine Ketones (Negative) Urine Blood (Negative) Urine Nitrite (Negative) Urine Bilirubin (Negative) Urine Urobilinogen (Negative) Ur Leukocyte Esterase (Negative) 12/23/22 12/23/22 Range/Units 16:32 13:20 WBC (4.8-10.8) K/ul RBC (3.93-5.22) M/uL Hgb (12.0-16.0) g/dl Hct (34.1-44.9) % MCV (80.0-100.0) fL MCH (25.0-34.0) pg MCHC (32.0-36.0) g/dL RDW Std Deviation (36.4-46.3) fL RDW Coeff of Aime (11.5-14.5) % Plt Count (130-400) K/uL MPV (9.4-12.3) fL Sodium (136-145) mmol/L Potassium (3.5-5.1) mmol/L Chloride (98-107) mmol/L Carbon Dioxide (21-32) mmol/L Anion Gap (3-11) BUN (6-23) mg/dl Creatinine (0.6-1.2) mg/dl Est Cr Clr Drug Dosing ml/min Est GFR ( Amer) ml/min Est GFR (Non-Af Amer) ml/min BUN/Creatinine Ratio (10-20) Glucose (70-99(Fasting)) mg/dl Calcium (8.5-10.1) mg/dl Magnesium (1.7-2.4) mg/dl Iron (35-150) mcg/dl TIBC (250-450) mcg/dl Unsaturated IBC (155-355) mcg/dl Transferrin % Sat (15-50) % Ferritin (8-388) ng/ml Troponin I High Sens 170.4 H* D (0-14) pg/ml Vitamin B12 (180-914) pg/ml Folate (>5.38) ng/ml TSH (0.300-4.500) uIu/ml Urine Color Dark Yellow Urine Appearance Clear (Clear) Urine pH 7.0 (4.5-7.5) Ur Specific [place] 1.007 (1.000-1.030) Urine Protein Negative (Negative) Urine Glucose (UA) Negative (Negative) Urine Ketones Trace H (Negative) Urine Blood Negative (Negative) Urine Nitrite Negative (Negative) Urine Bilirubin Negative (Negative) Urine Urobilinogen Negative (Negative) Ur Leukocyte Esterase Negative (Negative) Diagnostic Findings Chest X-Ray 10/15/22 07:40 XR chest 1V portable HISTORY: Cough. COMPARISON: Chest CT 10/08/2022. FINDINGS: No pneumothorax. No pleural effusions. There is diffuse interstitial thickening with hazy bilateral airspace opacities most pronounced on the right. This remains unchanged from the prior chest CT. The heart is normal in size. No acute fractures identified. IMPRESSION: No change in the diffuse interstitial thickening and hazy bilateral airspace opacities. This could be due to pulmonary edema or an atypical pneumonitis. ACT 112: Negative or not required by law. Electronically signed by: Brayan Dwyer M.D. 10/15/2022 8:51 AM KUB X-Ray 10/15/22 07:42 KUB CLINICAL HISTORY: Abdominal pain. eval constipation/obstruction COMPARISON STUDY: CT of the abdomen and pelvis February 11, 2017 and KUB January 29, 2022. FINDINGS: There is no evidence for a bowel obstruction. Moderate amount of gas within the rectum is present. There is minimal stool within the rectum. Moderate amount stool within the colon is present. Left abdominal calcifications may be within the cortex of the left kidney. Nonobstructing left renal calculi could appear similar. A left pelvic calcification represents a phlebolith. There is dextroscoliosis of the lumbar spine. IMPRESSION: 1. No evidence for a bowel obstruction. 2. Moderate amount of stool within the colon. Minimal stool within the rectum. ACT 112: Negative or not required by law. Electronically signed by: Mike Kang M.D. 10/15/2022 8:43 AM 10/16 ECHOCARDIOGRAM Normal LV size with hyperdynamic systolic function. EF >70%. No regional wall motion abnormalities. No left ventricular hypertrophy. Septal flattening during diastole suggests possible RV volume overload. Borderline dilated RV with mildly reduced systolic function. No significant valvular abnormalities. Normal est RVSP. no prior study available for comparison PG Care Time/CCT Total # of Minutes Spent Total Time Spent with Patient: Total time spent is greater than 50% in coordination of care (as documented) at patient's floor/unit and/or counseling patient: Coding Level of Care Code 70048 Subseq Hosp Care Lvl 3 Diagnoses Elevated troponin R77.8 Hypoxia R09.02 Anemia D64.9 UTI (urinary tract infection) N39.0 COPD (chronic obstructive pulmonary disease) J44.9 CKD (chronic kidney disease) N18.9 Hypothyroidism E03.9 Anxiety F41.9 Constipation K59.00 Constipation type: unspecified constipation type Nausea R11.0 DVT prophylaxis Z29.9 (1) Constipation Constipation type: unspecified constipation type Qualified Code(s): K59.00 - Constipation, unspecified
[2022-10-16] MEDS ORDERED: FLUoxetine HCL 20 MG CAP PO SCH (09:00)
[2022-10-16] MEDS: cefTRIAXone SODIUM 1,000 MG in DEXTROSE 5% AD-VAN 50 ML IV SCH (09:09)
[2022-10-16] MEDS: ASPIRIN 81 MG ECTAB PO SCH (09:10)
[2022-10-16] MEDS: LORATADINE 10 MG TAB PO SCH (09:10)
[2022-10-16] MEDS: FAMOTIDINE 20 MG TAB PO SCH ×2 (09:10→19:57)
[2022-10-16] MEDS: POLYETHYLENE (MIRALAX) 17 GM PACK PO SCH (09:11)
[2022-10-16] MEDS ORDERED: FUROSEMIDE 20 MG TAB PO ONE (09:52)
[2022-10-16] MEDS: HEPARIN SOD 5,000 UNIT/0.5 ML VIAL SQ SCH ×2 (10:34→19:56)
--- NOTE | 2022-10-16 11:05 | Electrocardiogram Report ---
Test Reason : Blood Pressure : / mmHG Vent. Rate : 083 BPM Atrial Rate : 083 BPM P-R Int : 142 ms QRS Dur : 080 ms QT Int : 386 ms P-R-T Axes : 083 060 050 degrees QTc Int : 453 ms Normal sinus rhythm with sinus arrhythmia RSR' or QR pattern in V1 suggests right ventricular conduction delay Abnormal ECG When compared with ECG of 15-OCT-2022 08:38, (unconfirmed) Premature supraventricular complexes are no longer Present The anterior ST elevation and T wav inversions have resolved Confirmed by William Khan ([id number]) on 10/16/2022 11:04:40 AM Referred By: REFERRED SELF Confirmed By:William Khan
[2022-10-16] MEDS: DOCUSATE SODIUM/SENNA 50/8.6MG TAB PO SCH (11:31)
[2022-10-16] MEDS: FLUTICASONE PROPIONATE NA SPR 16 GM BTL SCH (12:04)
[2022-10-16 12:48] LABS: Ferritin 102.7 ng/ml (8-388)
[2022-10-16] MEDS ORDERED: IRON SUCROSE 300 MG in SODIUM CHLORIDE 0.9% 250 ML IV ONE (14:00)
[2022-10-16] MEDS ORDERED: AZITHROMYCIN 500 MG in DEXTROSE 5% 250 ML IV ONE (17:44)
[2022-10-16] MEDS: guaiFENesin 600 MG TABCR PO SCH (19:56)
[2022-10-16] MEDS: SODIUM CHLOR 7% 4 ML NEB NEB SCH (20:11)
[2022-10-16] MEDS: ALBUT/IPRATROP 3MG/0.5MG NEB 3 ML VIAL NEB SCH (20:11)
[2022-10-17] MEDS: LEVOTHYROXINE SODIUM 50 MCG TABLET PO SCH (05:57)
[2022-10-17 06:30] LABS: Hematocrit (blood only) 32.2 % (34.1-44.9); Hemoglobin 10.2 g/dl (12.0-16.0); Mean Corpuscular Hemoglobin 28.1 pg (25.0-34.0); Mean Corpuscular Hgb Conc 31.7 g/dL (32.0-36.0); Mean Corpuscular Volume 88.7 fL (80.0-100.0); Mean Platelet Volume 9.7 fL (9.4-12.3); Platelet Count 450 K/uL (130-400); RDW Coefficient of Variation 13.5 % (11.5-14.5); RDW Standard Deviation 43.8 fL (36.4-46.3); Red Blood Count 3.63 M/uL (3.93-5.22); White Blood Count 6.94 K/ul (4.8-10.8)
[2022-10-17 06:56] LABS: Calcium 8.2 mg/dl (8.5-10.1); Creatinine Clr Calc Pharmacy 60.8 ml/min; Est GFR (African American) 99.1 ml/min; Est GFR (Non-African American) 85.5 ml/min; Magnesium 2.1 mg/dl (1.7-2.4); Potassium 4.4 mmol/L (3.5-5.1)
[2022-10-17] MEDS: SODIUM CHLOR 7% 4 ML NEB NEB SCH (07:47)
[2022-10-17] MEDS: ALBUT/IPRATROP 3MG/0.5MG NEB 3 ML VIAL NEB SCH (07:47)
[2022-10-17] MEDS ORDERED: ALBUT/IPRATROP 3MG/0.5MG NEB 3 ML VIAL NEB PRN (09:44)
[2022-10-17] MEDS: AZITHROMYCIN 250 MG in DEXTROSE 5% 250 ML IV SCH (09:49)
[2022-10-17] MEDS: cefTRIAXone SODIUM 1,000 MG in DEXTROSE 5% AD-VAN 50 ML IV SCH (09:49)
[2022-10-17] MEDS: ASPIRIN 81 MG ECTAB PO SCH (09:49)
[2022-10-17] MEDS: guaiFENesin 600 MG TABCR PO SCH ×2 (09:50→21:30)
[2022-10-17] MEDS: HEPARIN SOD 5,000 UNIT/0.5 ML VIAL SQ SCH ×2 (09:50→21:30)
[2022-10-17] MEDS: LORATADINE 10 MG TAB PO SCH (09:50)
[2022-10-17] MEDS: DOCUSATE SODIUM/SENNA 50/8.6MG TAB PO SCH (09:50)
[2022-10-17] MEDS: FAMOTIDINE 20 MG TAB PO SCH ×2 (09:50→21:30)
[2022-10-17] MEDS: CYANOCOBALAMIN (B-12) 500 MCG TABLET PO SCH (09:50)
[2022-10-17] MEDS: PARoxetine HCL 20 MG TAB PO SCH (09:51)
[2022-10-17] MEDS: FLUTICASONE PROPIONATE NA SPR 16 GM BTL SCH (09:51)
[2022-10-17] MEDS: POLYETHYLENE (MIRALAX) 17 GM PACK PO SCH (09:52)
--- NOTE | 2022-10-17 10:48 | Hospitalist Progress Note ---
Date of Service October 17, 2022 Assessment & Plan (1) Elevated troponin: Plan: Presented with LLQ cramps/nausea, UTI sx x 2 weeks with burning/frequency Nausea and elevated troponin, there are non specific changes on ECG, pt will be put on aspirin 81mg daily Trop 359--> 170--> 126. NO CHEST PAIN reported. No further nausea or abdominal pain reported. Suspect demand ischemia from possible UTI/anemia/volume overload -- treatment as outlined Flu/RSV/COVID negative on admit (?if recent viral process) ECHO obtained -- no wma, but does note hyperdynamic systolic function, septal flattening during diastole suggests possible RV volume overload Was seen by pulm in past week, CT chest for monitoring at that time (had been complaining of GI symptoms at that time, ?viral illness vs volume overload) --> 1. Interval development of interlobular septal thickening with perihilar ground-glass airspace opacities most pronounced on the right. This suggests mild interstitial pulmonary edema. An atypical/viral pneumonitis could also have a s imilar appearance. 2. No change in 1.5 cm scarlike density within the right lower lobe. 3. Additional stable right lower lobe nodules measure up to 6 mm. 4. No new or enlarging pulmonary lesions identified. 5. Left axillary lymphadenopathy has improved/resolved. 6. Prominent mediastinal lymph nodes have slightly increased in size. This may be reactive. Continues on ASA 81mg daily -- can continue at dc, again no bleeding reported by patient Pulmonary toilet On 3L NC to maintain sats -- titrate as able as does NOT appear to be on O2 at home Given lasix 20mg PO x 1 for volume overload, monitor response and consider 20mg PO daily. Consider reaching out to her usual pulm doc if continued issues Also checking Iron/B12/folate given anemia w/ hgb in 10s on admit (prior 12s in [id number]), denies bleeding --> iron 19, trans % sat 7. Will order Venofer IV while inpatient. B12 low normal 305 Folate wnl Titrate O2 as able, consider 2 step prior to d/c (2) Hypoxia: Plan: Hx COPD, follows with Dr Squires, just seen last week. Biopsy of pulm nodule showed granulomatous inflammation. CT scan w/ bronchiectasis and multiple pulm nodules --> Needs 6 month f/u imaging Does not appear to be on O2 at home CT chest last week w/ possible mild interstitial pulmonary edema -- an atypical/viral pneumonitis could also have similar appearance ?if recent viral illness w/ +n/v/diarrhea and urinary symptoms. check stool pcr for further eval Flu/RSV/COVID negative on admit CXR No change in the diffuse interstitial thickening and hazy bilateral airspace opacities--> this could be due to pulmonary edema or an atypical pneumonitis. No pleuritic chest pain or hypotension to suggest DVT but not entirely excluded, ECHO w/ RV dilation/mildly reduced systolic function. Consider CTA for PE if no improvement w/ diuretics Currently 95% on 3L Lasix 20mg PO x 1 Check iron studies to r/o anemia causing shortness of breath, Venofer as outlined Added incentive spirometer, mucinex BID, continues on loratadine daily for allergy symptoms Titrate O2 to maintain sats, would 2 step prior to discharge -Add on scheduled duo nebs and azithromycin for atypical coverage in addition to ceftriaxone -Consider pulmonology consultation if not improving -Add on hypertonic saline nebs (3) Anemia: Plan: checking iron/b12/folate as above, hgb in 10s on admit but prior baselines in 10s Does have alternating diarrhea/constipation, will need to inquire about most recent endoscopy if ever had one done. 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 and addressing issues with PCP It appears has seen GI in past, [facility] [place] had been placed on miralax/colace and patient developed diarrhea and then that was stopped and started on Metamucil in evening and continue miralax in AM Prior GI notes state patient had been seen by [facility] in past, but wanted 2nd opinion, self reported history of lymphocytic colitis and chronic constipation, seen by [facility] and was at [facility] [place] [facility] for second opinion Has had EGD/colonoscopy by Dr Lai and dx w/ colon polyps and esophagitis --> PET CT february 2020 w/o FDG acid disease. Iron studies w/ deficiency -- Venofer IV replacement ordered, continue while inpatient of note, patient is vegetarian. may benefit from PO supplementation at d/c but cautious use in patient w/ baseline constipation/diarrhea issues CBC in AM (4) UTI (urinary tract infection): Plan: Presented with LLQ cramps, nausea, UTI symptoms x 2 weeks with burning/frequency . Hx IBS/constipation/overflow diarrhea. 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 (5) COPD (chronic obstructive pulmonary disease): Plan: Hx smoking/pulm nodule, prior bx showed non necrotizing granulomatous inflammation, generally not on inhaled medication but follows with Dr Squires Consider 2 step prior to discharge, meds for COPD exacerbation however denied any sputum changes, no fever, recent UTI as above -Start scheduled DuoNebs and hypertonic saline as above for bronchiectasis and hypoxia (6) CKD (chronic kidney disease): Plan: Cr at baseline, monitor/renal dose meds/avoid nephrotoxic agents as able (7) Hypothyroidism: Plan: TSH wnl on check, 2.741 continues on synthroid 50 mcg daily (8) Anxiety: Plan: On admit ordered prozac, but patient doesnt take this any longer and is on paxil --> changed for medications (refused AM prozac) Hx OCD/PTSD/Anxiety (9) Constipation: Plan: added senna/docusate, no abd pain reported but KUB on admit w/ mod form stool noted (10) Nausea: Plan: reported on admit, ?constipation vs UTI vs hepatic congestion/volume overload Abx for UTI, lasix for overload, senna/docusate for constipation No nausea/vomiting reported currently (11) DVT prophylaxis: Plan: Heparin for DVT prevention Plan Disposition- continued inpatient stay Admission and Anticipated Discharge Date Admission Date: October 15, 2022 Subjective Evaluated this morning, sitting up in recliner, no acute distress. Remains with supplemental oxygen on but not wearing this at home. She states NOT having chest pain, no chest pain on admit, but there was an enz yme that was up they were worried about. Discussed could have been demand from her UTI -- chronic issues w/ frequency/urgency. She was on an antibiotics but that a irish doctor told her we would be using stronger antibiotics. She also inquired about why getting heparin - discussed DVT proph/less mobile in hospital. Declined this AM but discussed if remains inpatient should be agreeable. Does have issues/ w constipation for days at home, but discussed constipation can make nausea/abdominal pain worse. Rec'd and started stool softener as well. She does believe she has issues with her oxygen and was previously short of breath. Denies sputum production (no cough during exam). Physical Exam Physical Exam: General: WD/WN female sitting up in liset, gown slightly disheveled, NAD HEENT: head normocephalic, atraumatic, mmm, trachea midline, ?JVD CV: RRR, +murmur, no pitting edema/calf tenderness, chronic venous stasis Resp: CTAB, diminished in the bases with scattered crackles, no wheezing, on 3L NC GI: +BS, nontender, slight distension : no rose MSK/Neuro: no focal deficit/slurred speech Psych: AOx person, place, time, intermittent forgetfulness Results & Data Results & Data ([facility]) Vital Signs (Past 12 Hours) Vital Signs Temp Pulse Resp BP Pulse Ox O2 Del Method O2 Flow Rate 10/17/22 08:28 37.1 C 85 19 133/74 Room Air 10/17/22 07:50 18 Nasal Cannula 2 10/17/22 03:10 37.1 C 82 18 119/61 96 Nasal Cannula 2 PG Care Time/CCT Total # of Minutes Spent Total Time Spent with Patient: Total time spent is greater than 50% in coordination of care (as documented) at patient's floor/unit and/or counseling patient: Coding Diagnoses Elevated troponin R77.8 Hypoxia R09.02 Anemia D64.9 UTI (urinary tract infection) N39.0 COPD (chronic obstructive pulmonary disease) J44.9 CKD (chronic kidney disease) N18.9 Hypothyroidism E03.9 Anxiety F41.9 Constipation K59.00 Constipation type: unspecified constipation type Nausea R11.0 DVT prophylaxis Z29.9 (1) Constipation Constipation type: unspecified constipation type Qualified Code(s): K59.00 - Constipation, unspecified
[2022-10-17] MEDS: IRON SUCROSE 300 MG in SODIUM CHLORIDE 0.9% 250 ML IV SCH (13:09)
--- NOTE | 2022-10-17 14:49 | Electrocardiogram Report ---
Test Reason : Blood Pressure : / mmHG Vent. Rate : 084 BPM Atrial Rate : 084 BPM P-R Int : 142 ms QRS Dur : 082 ms QT Int : 376 ms P-R-T Axes : 027 035 022 degrees QTc Int : 444 ms Normal sinus rhythm with sinus arrhythmia Nonspecific T wave abnormality When compared with ECG of 16-OCT-2022 06:04, Nonspecific T wave abnormality is present Confirmed by William Khan ([id number]) on 10/17/2022 2:48:29 PM Referred By: REFERRED SELF Confirmed By:William Khan
[2022-10-17] MEDS: LACTULOSE SYRUP 30 GM/45 ML UDP PO SCH ×3 (14:52→21:31)
--- NOTE | 2022-10-17 17:38 | Hospitalist Progress Note ---
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 Interval development of interlobular septal thickening with perihilar ground-glass airspace opacities most pronounced on the right. This suggests mild interstitial pulmonary edema. An atypical/viral pneumonitis could also have a similar appearance. 2. No change in 1.5 cm scarlike density within the right lower lobe. 3. Additional stable right lower lobe nodules measure up to 6 mm. 4. No new or enlarging pulmonary lesions identified. 5. Left axillary lymphadenopathy has improved/resolved. 6. Prominent mediastinal lymph nodes have slightly increased in size. This may be reactive. Currently patient on Rocephin and Zithromax -BNP is mildly elevated Serology test for influenza type a therapy RSV and SARS is negative CT chest last week w/ possible mild interstitial pulmonary edema -- an atypical/viral pneumonitis could also have similar appearance CXR No change in the diffuse interstitial thickening and hazy bilateral airspace opacities--> this could be due to pulmonary edema or an atypical pneumonitis -We will check for D-dimer -Continue incentive spirometer, Mucinex, continue hypertonic saline Started on Lasix 40 mg twice daily (2) Elevated troponin: Plan: -Prior trending down, possibly ischemic demand EKG did not show any evidence of acute ischemia Echocardiogram unremarkable (3) Anemia: Plan: Anemia work-up is consistent with iron deficiency anemia Proceed with IV iron transfusi - Does have alternating diarrhea/constipation, will need to inquire about most recent endoscopy if ever had one done -It appears [place] [facility] [place]alax/colace and patient developed diarrhea and then that was stopped and started on Metamucil in evening and continue miralax in AM -prior GI notes state patient had been seen by [facility] in past, but wanted 2nd opinion, self reported history of lymphocytic colitis and chronic constipation, seen by [facility] and was [place] [facility] [facility] [place] Has had EGD/colonoscopy by Dr Lai and dx w/ colon polyps and esophagitis --> PET CT february 2020 w/o FDG acid disease. (4) UTI (urinary tract infection): Plan: Presented with LLQ cramps, nausea, UTI symptoms x 2 weeks with burning/frequency . Hx IBS/constipation/overflow diarrhea. 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 (5) COPD (chronic obstructive pulmonary disease): Plan: Hx smoking/pulm nodule, prior bx showed non necrotizing granulomatous inflammation, generally not on inhaled medication but follows with Dr Squires Consider 2 step prior to discharge, meds for COPD exacerbation however denied any sputum changes, no fever, recent UTI as above -Start scheduled DuoNebs and hypertonic saline as above for bronchiectasis and hypoxia (6) CKD (chronic kidney disease): Plan: Cr at baseline, monitor/renal dose meds/avoid nephrotoxic agents as able (7) Hypothyroidism: Plan: TSH wnl on check, 2.741 continues on synthroid 50 mcg daily (8) Anxiety: Plan: On admit ordered prozac, but patient doesnt take this any longer and is on paxil --> changed for medications (refused AM prozac) Hx OCD/PTSD/Anxiety (9) Constipation: Plan: added senna/docusate, no abd pain reported but KUB on admit w/ mod form stool noted (10) Nausea: Plan: reported on admit, ?constipation vs UTI vs hepatic congestion/volume overload Abx for UTI, lasix for overload, senna/docusate for constipation No nausea/vomiting reported currently (11) DVT prophylaxis: Plan: Heparin for DVT prevention Plan Disposition- continued inpatient stay Admission and Anticipated Discharge Date Admission Date: October 15, 2022 Subjective Patient feels better, however still patient is hypoxic with ambulation, sats are 90% on room air, with ambulation drops the patient is 2 L of oxygen, imaging study showed possible pulmonary congestion, proceeded Lasix 40 mg IV twice daily, strict JL's, BNP is not significantly weight is around 300 Physical Exam Physical Exam: General: WD/WN female sitting up in liset, gown slightly disheveled, NAD HEENT: head normocephalic, atraumatic, mmm, trachea midline, ?JVD CV: RRR, +murmur, no pitting edema/calf tenderness, chronic venous stasis Resp: CTAB, diminished in the bases with scattered crackles, no wheezing, on 3L NC GI: +BS, nontender, slight distension : no rose MSK/Neuro: no focal deficit/slurred speech Psych: AOx person, place, time, intermittent forgetfulness Results & Data Results & Data ([facility]) Vital Signs (Past 12 Hours) Vital Signs Temp Pulse Pulse Pulse Pulse Pulse Pulse 10/17/22 15:32 36.4 C L 80 10/17/22 15:30 10/17/22 13:10 92 H 89 95 H 90 91 H 10/17/22 11:40 10/17/22 08:28 37.1 C 85 10/17/22 07:50 Resp Resp Resp Resp Resp Resp BP 10/17/22 15:32 18 127/75 10/17/22 15:30 10/17/22 13:10 18 18 20 18 18 10/17/22 11:40 10/17/22 08:28 19 133/74 10/17/22 07:50 18 Pulse Ox Pulse Ox Pulse Ox Pulse Ox Pulse Ox Pulse Ox O2 Del Method 10/17/22 15:32 91 Room Air 10/17/22 15:30 Nasal Cannula 10/17/22 13:10 84 L 93 92 93 84 L 10/17/22 11:40 90 Room Air 10/17/22 08:28 Room Air 10/17/22 07:50 Nasal Cannula O2 Flow Rate O2 Flow Rate O2 Flow Rate O2 Flow Rate O2 Flow Rate 10/17/22 15:32 10/17/22 15:30 2 10/17/22 13:10 1 2 2 2 10/17/22 11:40 10/17/22 08:28 10/17/22 07:50 2 PG Care Time/CCT Total # of Minutes Spent Total Time Spent with Patient: Total time spent is greater than 50% in coordination of care (as documented) at patient's floor/unit and/or counseling patient: Coding Level of Care Code 37597 Subseq Hosp Care Lvl 2 Diagnoses Hypoxia R09.02 Elevated troponin R77.8 Anemia D64.9 UTI (urinary tract infection) N39.0 COPD (chronic obstructive pulmonary disease) J44.9 CKD (chronic kidney disease) N18.9 Hypothyroidism E03.9 Anxiety F41.9 Constipation K59.00 Constipation type: unspecified constipation type Nausea R11.0 DVT prophylaxis Z29.9 (1) Constipation Constipation type: unspecified constipation type Qualified Code(s): K59.00 - Constipation, unspecified
[2022-10-17] MEDS: FUROSEMIDE 40 MG/4 ML VIAL IV SCH (21:31)
[2022-10-18 02:36] LABS: Adenovirus F 40/41 PCR Not Detected (NotDetected); Astrovirus PCR Not Detected (NotDetected); Campylobacter PCR Not Detected (NotDetected); Cryptosporidium PCR Not Detected (NotDetected); Cyclospora cayetanensis PCR Not Detected (NotDetected); Entamoeba histolytica PCR Not Detected (NotDetected); Enteroaggregative E.coli(EAEC) Not Detected (NotDetected); Enteropathogenic E.coli (EPEC) Not Detected (NotDetected); Enterotoxigenic E.coli (ETEC) Not Detected (NotDetected); Giardia lamblia PCR Not Detected (NotDetected); Norovirus GI/GII PCR Not Detected (NotDetected); Plesiomonas shigelloides PCR Not Detected (NotDetected); Rotavirus A PCR Not Detected (NotDetected); Salmonella PCR Not Detected (NotDetected); Sapovirus PCR Not Detected (NotDetected); Shiga-like Toxin E.coli (STEC) Not Detected (NotDetected); Shigella/Enteroinvasive E.coli Not Detected (NotDetected); Vibrio cholerae PCR Not Detected (NotDetected); Vibrio species PCR Not Detected (NotDetected); Yersinia enterocolitica PCR Not Detected (NotDetected)
[2022-10-18] MEDS: LEVOTHYROXINE SODIUM 50 MCG TABLET PO SCH (05:55)
[2022-10-18] MEDS: FAMOTIDINE 20 MG TAB PO SCH ×2 (07:44→21:10)
[2022-10-18] MEDS: guaiFENesin 600 MG TABCR PO SCH ×2 (07:44→21:10)
[2022-10-18] MEDS: PARoxetine HCL 20 MG TAB PO SCH (07:45)
[2022-10-18] MEDS: DOCUSATE SODIUM/SENNA 50/8.6MG TAB PO SCH (07:45)
[2022-10-18] MEDS: CYANOCOBALAMIN (B-12) 500 MCG TABLET PO SCH (07:45)
[2022-10-18] MEDS: LACTULOSE SYRUP 30 GM/45 ML UDP PO SCH ×4 (07:46→21:11)
[2022-10-18] MEDS: LORATADINE 10 MG TAB PO SCH (07:46)
[2022-10-18] MEDS: HEPARIN SOD 5,000 UNIT/0.5 ML VIAL SQ SCH ×2 (07:46→21:11)
[2022-10-18] MEDS: ASPIRIN 81 MG ECTAB PO SCH (07:47)
[2022-10-18] MEDS: FUROSEMIDE 40 MG/4 ML VIAL IV SCH ×2 (07:48→21:11)
[2022-10-18] MEDS: FLUTICASONE PROPIONATE NA SPR 16 GM BTL SCH (07:48)
[2022-10-18 07:51] LABS: Hematocrit (blood only) 31.2 % (34.1-44.9); Hemoglobin 10.3 g/dl (12.0-16.0); Mean Corpuscular Hemoglobin 28.6 pg (25.0-34.0); Mean Corpuscular Volume 86.7 fL (80.0-100.0); Mean Platelet Volume 9.5 fL (9.4-12.3); Platelet Count 472 K/uL (130-400); RDW Coefficient of Variation 13.6 % (11.5-14.5); RDW Standard Deviation 42.8 fL (36.4-46.3); White Blood Count 6.86 K/ul (4.8-10.8)
[2022-10-18] MEDS: POLYETHYLENE (MIRALAX) 17 GM PACK PO SCH (07:53)
[2022-10-18] MEDS: IRON SUCROSE 300 MG in SODIUM CHLORIDE 0.9% 250 ML IV SCH (07:54)
[2022-10-18 08:14] LABS: BUN Creatinine Ratio 13.2 (10-20); Calcium 8.6 mg/dl (8.5-10.1); Creatinine Clr Calc Pharmacy 53.7 ml/min; Est GFR (African American) 95.1 ml/min; Magnesium 1.8 mg/dl (1.7-2.4); Potassium 3.6 mmol/L (3.5-5.1)
[2022-10-18] MEDS: AZITHROMYCIN 250 MG in DEXTROSE 5% 250 ML IV SCH (09:34)
--- NOTE | 2022-10-18 16:03 | Pulmonary Consultation ---
Date of Consultation October 18, 2022 Assessment & Plan (1) Hypoxia: Likely multifactorial related to acute exacerbation of her bronchiectasis and volume overload given the elevated BNP and dilated RV noted on echo. I suspect she has an element of RV failure secondary to chronic respiratory disease. Wean FiO2 to maintain saturations above 89%. She likely has an element of chronic hypoxemia. Would recommend a two step on RA prior to discharge to qualify her for supplemental o2 as an outpatient. (2) Bronchiectasis with (acute) exacerbation: She has idiopathic bronchiectasis. It is unclear to me what work-up has been completed up to this point. 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 Squires, including rheumatoid factor, CCP, immunoglobulins, Sjogren's labs, alpha-1 antitrypsin screening and so forth. Given the history of granulomatous nodule on biopsy in 2019, necrobiotic nodule and bronchiectasis from rheumatoid arthritis remains highest on the differential. Other etiologies also include possible sarcoidosis although bronchiectasis is rarely secondary to sarcoidosis We will start the patient on nebulized budesonide, scheduled duonebs, hypertonic saline twice daily and percussive vest therapy. We will add cefepime to azithromycin. I ordered an MRSA screen which was negative. Will order sputum culture and AFB sputum cultures as she is at risk for colonization and/or infection with nontuberculous Mycobacterium given her CT chest findings. If her symptoms remain stable in the next 1-2 days, recommend discharge on Levaquin PO 500 mg for 10 days including the abx received during the hospital stay starting from the first dose of cefepime. (3) Volume overload: Agree with diuresis. Check weights and I's and O's frequently. Plan No further recommendations at this time. Please call with questions. Anticipate d/c back to facility in 1-2 days. Thank you for the interesting consult. History of Present Illness Reason for Consultation: Acute hypoxic Attending Physician: Jeremiah Romero MD History of Present Illness 82-year-old female with a history of bronchiectasis presenting to the hospital due to abdominal discomfort. She follows with Dr. Squires in the pulmonary clinic and last saw him 10/11/2022. She underwent a biopsy of a pulmonary nodule on the right in 2019 which demonstrated nonnecrotizing granulomatous inflammation. She has had prior CT scans which revealed bronchiectasis. Pulmonary is consulted due to hypoxemia and an abnormal CT scan of her chest. She had a PFT performed at [facility] in 2019 which revealed a normal spirometry and no significant obstruction. Lung volumes were unremarkable. DLCO was severely reduced. PET scan in 2019 demonstrated increase in size and a 1.9 cm nodule within the base of the right lower lobe demonstrating intense FDG avidity. She smoked for 55 years and quit approximately 7 years ago. CBC on hospital admission did not reveal any significant eosinophilia. COVID-19 testing, influenza testing and RSV testing were negative on admission. She is currently on Lasix 40 mg twice daily and azithromycin 250 mg daily. She is not on any home inhalers. CT of her chest this admission demonstrates diffuse bronchiectasis with diffuse interlobular septal thickening. No significant pleural effusion or consolidation is seen. Bronchiectasis is particularly severe in the right middle lobe. CT 3 days prior to that did not reveal any significant interlobular septal thickening. Moderate emphysema was seen. BNP this admission was 318 pg/mL. Procalcitonin checked 10/15/2022 was negative. Echo 10/15/2022 with an LVEF of greater than 70%. Borderline dilated RV with mildly reduced systolic function. Normal estimated RVSP. It was very difficult to obtain a relevant history from the patient as she is quite tangential in her thought process. She denies any overt cough, shortness of breath or chest tightness at rest. Her main complaint on admission was abdominal pain which appears to be related to constipation. Allergies Allergy/AdvReac Type Severity Reaction Status Date / Time No Known Drug Allergies Allergy Verified 08/23/22 13:52 Home Medications Medication Instructions Recorded Confirmed Type levothyroxine 50 mcg tablet 50 mcg PO QAM 10/07/18 08/23/22 History cholecalciferol (vitamin D3) 25 25 mcg PO DAILY 03/21/20 08/23/22 History mcg (1,000 unit) capsule loratadine 10 mg tablet (Allergy 10 mg PO DAILY 03/21/20 08/23/22 History Relief (loratadine)) vibegron 75 mg tablet (Gemtesa) 75 mg PO DAILY #90 tabs 01/22/22 08/23/22 Rx fluticasone propionate 50 2 spray intranasal DAILY PRN Nasal 04/07/22 08/23/22 Rx mcg/actuation nasal Congestion #15.8 mL spray,suspension paroxetine HCl 40 mg tablet (Paxil) mg PO DAILY 10/16/22 History Patient History Medical History (Updated 10/18/22 @ 16:04 by Franc Summers MD) Bronchiectasis with (acute) exacerbation CKD (chronic kidney disease) Left kidney atrophy, 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 Volume overload Surgical History H/O total adrenalectomy History of ear surgery STAPEDECTOMY History of nephrectomy History of tonsillectomy and adenoidectomy Family History Mother Diabetes Other Family history non-contributory Social History Smoking Status: Former smoker Hx Alcohol Use: Yes Alcohol type: wine Hx Substance Use: No Preferred Language: Namibian Communication Ability: Effective Gauger Delivery Required: No Beliefs That Will Affect Care: None Current Living Situation: Alone and Senior Living Feels Safe at Home: Yes Safety Concerns: Feels Safe At This Time Childhood Exposure to Second-Hand Smoke: No caffeine: Yes (trying to limit as best she can) Seatbelt Use: always Assistive Devices: None Review of Systems Review of Systems: All systems reviewed & are unremarkable except as noted in HPI & below Physical Exam Physical Exam: Constitutional: Elderly appearing female laying in bed with NC in place in NAD. Eyes: Pupils are equal round and reactive to light. Conjunctivae are normal. Anicteric sclera. Ears nose, mouth and throat: No obvious deformities noted. Neck: Trachea is midline. Visual inspection is normal. Respiratory: Mild crackles in the RLL. No wheezes. No significant tachypnea. Cardiovascular: Regular rate and rhythm. No murmurs. No edema. Gastrointestinal: Normal bowel sounds, soft, nontender and nondistended. No hepatosplenomegaly noted. Musculoskeletal: No cyanosis. Patient is able to move all extremities. Skin: No rashes, warm dry and intact. Neurologic: No obvious focal neurological deficits seen. Psychiatric: Tangential thought process. Normal mood. Results & Data Results & Data ([facility]) Vital Signs (Past 12 Hours) Vital Signs Temp Pulse Pulse Resp BP Pulse Ox O2 Del Method 10/18/22 15:25 36.8 C 87 20 93/57 L 90 Nasal Cannula 10/18/22 11:40 36.6 C 90 20 100/63 90 Nasal Cannula 10/18/22 08:05 36.9 C 82 20 111/66 97 Nasal Cannula 10/18/22 07:22 Nasal Cannula 10/18/22 07:02 89 10/18/22 04:30 36.7 C 93 H 18 104/57 L 91 Nasal Cannula O2 Flow Rate 10/18/22 15:25 2 10/18/22 11:40 2 10/18/22 08:05 2 10/18/22 07:22 2 10/18/22 07:02 10/18/22 04:30 2 PG Care Time/CCT Total # of Minutes Spent Total Time Spent with Patient: Total time spent is greater than 50% in coordination of care (as documented) at patient's floor/unit and/or counseling patient: Coding Level of Care Code 34002 Initial Inpt Care Lvl 3 Diagnoses Hypoxia R09.02 Bronchiectasis with (acute) exacerbation J47.1 Volume overload E87.70
[2022-10-18] MEDS ORDERED: CEFEPIME 2,000 MG in SYRINGE 0 ML IV STA (16:08)
[2022-10-18] MEDS: BUDESONIDE 0.25 MG/2 ML VIAL (PULMICORT) NEB SCH (16:26)
--- NOTE | 2022-10-18 17:40 | Hospitalist Progress Note ---
Date of Service October 18, 2022 Assessment & Plan (1) Hypoxia: Plan: Likely multifactorial related to acute exacerbation of her bronchiectasis and volume overload given the elevated BNP and dilated RV noted on echo. I suspect she has an element of RV failure secondary to chronic respiratory disease. Wean FiO2 to maintain saturations above 89%. (2) Elevated troponin: (3) Anemia: (4) UTI (urinary tract infection): (5) COPD (chronic obstructive pulmonary disease): (6) CKD (chronic kidney disease): (7) Hypothyroidism: (8) Anxiety: (9) Constipation: (10) Nausea: (11) DVT prophylaxis: Admission and Anticipated Discharge Date Admission Date: October 15, 2022 Subjective History patient remained hypoxic, sats running around 88 to 90%, appreciate pulmonary consult, continue IV Lasix, BMP tomorrow, lungs are clear to auscultation, patient has long history of smoking Physical Exam Physical Exam: Constitutional: Patient appears to be of their stated age. Patient is in no apparent distress. Patient is well-developed. Eyes: Pupils are equal round and reactive to light. Conjunctivae are normal. Anicteric sclera. Ears nose, mouth and throat: Mallampati class []. Normal posterior oropharynx. Uvula is midline. Neck: Trachea is midline. Visual inspection is normal. Respiratory: Clear to auscultation bilaterally. No use of accessory muscles. No significant clubbing noted. Cardiovascular: Regular rate and rhythm. No murmurs. No edema. Gastrointestinal: Normal bowel sounds, soft, nontender and nondistended. No hepatosplenomegaly noted. Musculoskeletal: No cyanosis. Patient is able to move all extremities. Strength is 5 out of 5 in the upper and lower extremities. Skin: No rashes, warm dry and intact. Neurologic: No obvious focal neurological deficits seen. Psychiatric: Alert and oriented x3 with a euthymic affect. Results & Data Results & Data ([facility]) Vital Signs (Past 12 Hours) Vital Signs Temp Pulse Pulse Resp BP Pulse Ox O2 Del Method 10/18/22 16:27 80 19 97 Nasal Cannula 10/18/22 15:25 36.8 C 87 20 93/57 L 90 Nasal Cannula 10/18/22 11:40 36.6 C 90 20 100/63 90 Nasal Cannula 10/18/22 08:05 36.9 C 82 20 111/66 97 Nasal Cannula 10/18/22 07:22 Nasal Cannula 10/18/22 07:02 89 O2 Flow Rate 10/18/22 16:27 2 10/18/22 15:25 2 10/18/22 11:40 2 10/18/22 08:05 2 10/18/22 07:22 2 10/18/22 07:02 PG Care Time/CCT Total # of Minutes Spent Total Time Spent with Patient: Total time spent is greater than 50% in coordination of care (as documented) at patient's floor/unit and/or counseling patient: Coding Diagnoses Hypoxia R09.02 Elevated troponin R77.8 Anemia D64.9 UTI (urinary tract infection) N39.0 COPD (chronic obstructive pulmonary disease) J44.9 CKD (chronic kidney disease) N18.9 Hypothyroidism E03.9 Anxiety F41.9 Constipation K59.00 Constipation type: unspecified constipation type Nausea R11.0 DVT prophylaxis Z29.9 (1) Constipation Constipation type: unspecified constipation type Qualified Code(s): K59.00 - Constipation, unspecified
--- NOTE | 2022-10-18 18:29 | Hospitalist Progress Note ---
Date of Service October 18, 2022 Assessment & Plan (1) Hypoxia: Plan: Appreciate pulmonary consult Continue Lasix 40 mg twice daily BMP tomorrow Long history of smoking -Multiple multifactorial, related to exacerbation of her bronchiectasis although there is no wheezing or crackles on exam, patient is empirically being treated with antibiotic at this point, BNP elevated and RV is dilated on echo, started on scheduled DuoNeb nebulized but said this tonight and hypertonic saline and percussive vest therapy, cefepime added to Zithromax per pension fund manager [employer] sputum culture ordered given she is at risk for infection with nontuberculous Mycobacterium given her chest CT finding (2) Anemia: Plan: Work-up consistent with iron deficiency anemia Continue IV iron patient has recent EGD/colonoscopy and diagnosed with colon polyps and esophagitis (3) UTI (urinary tract infection): Plan: The culture is not diagnostic, patient suffering from overactive bladder disorder, received Rocephin for 3 days, patient has a history of IBS/constipation/overflow diarrhea, patient presented with left lower quadrant crampy and UTI symptoms for 2 weeks with burning presented with worsening of 13,000 but now dropped to 9 patient is being followed by urology for overactive bladder (4) COPD (chronic obstructive pulmonary disease): Plan: x smoking/pulm nodule, prior bx showed non necrotizing granulomatous inflammation, generally not on inhaled medication but follows with Dr Squires Consider 2 step prior to discharge, meds for COPD exacerbation however denied any sputum changes, no fever, recent UTI as above -Start scheduled DuoNebs and hypertonic saline as above for bronchiectasis and hypoxia (5) Anxiety: Plan: Continue Paxil (6) Nausea: Plan: Resolved (7) DVT prophylaxis: Plan Continue DuoNeb, continue Lasix intravenously, continue budesonide and hypertonic saline nebulizer treatment Admission and Anticipated Discharge Date Admission Date: October 15, 2022 Subjective Still remain hypoxic, long history of smoking, possible volume overload, appreciate pulmonary consult input Results & Data Results & Data ([facility]) Vital Signs (Past 12 Hours) Vital Signs Temp Pulse Pulse Resp BP Pulse Ox O2 Del Method 10/18/22 16:27 80 19 97 Nasal Cannula 10/18/22 15:25 36.8 C 87 20 93/57 L 90 Nasal Cannula 10/18/22 11:40 36.6 C 90 20 100/63 90 Nasal Cannula 10/18/22 08:05 36.9 C 82 20 111/66 97 Nasal Cannula 10/18/22 07:22 Nasal Cannula 10/18/22 07:02 89 O2 Flow Rate 10/18/22 16:27 2 10/18/22 15:25 2 10/18/22 11:40 2 10/18/22 08:05 2 10/18/22 07:22 2 10/18/22 07:02 PG Care Time/CCT Total # of Minutes Spent Total Time Spent with Patient: Total time spent is greater than 50% in coordination of care (as documented) at patient's floor/unit and/or counseling patient: Coding Level of Care Code 65304 Subseq Hosp Care Lvl 2 Diagnoses Hypoxia R09.02 Anemia D64.9 UTI (urinary tract infection) N39.0 COPD (chronic obstructive pulmonary disease) J44.9 Anxiety F41.9 Nausea R11.0 DVT prophylaxis Z29.9
[2022-10-18] MEDS: ALBUT/IPRATROP 3MG/0.5MG NEB 3 ML VIAL NEB SCH (20:26)
[2022-10-18] MEDS: SODIUM CHLOR 7% 4 ML NEB NEB SCH (20:26)
[2022-10-18] MEDS: CEFEPIME 2,000 MG in SYRINGE 0 ML IV SCH (22:49)
[2022-10-19] MEDS: ALBUT/IPRATROP 3MG/0.5MG NEB 3 ML VIAL NEB SCH ×7 (00:35→23:53)
[2022-10-19] MEDS: LEVOTHYROXINE SODIUM 50 MCG TABLET PO SCH (05:32)
[2022-10-19] MEDS: BUDESONIDE 0.25 MG/2 ML VIAL (PULMICORT) NEB SCH (06:09)
[2022-10-19] MEDS: SODIUM CHLOR 7% 4 ML NEB NEB SCH ×2 (06:09→19:13)
[2022-10-19] MEDS: FUROSEMIDE 40 MG/4 ML VIAL IV SCH (07:10)
[2022-10-19] MEDS: PARoxetine HCL 20 MG TAB PO SCH (07:10)
[2022-10-19] MEDS: FAMOTIDINE 20 MG TAB PO SCH ×2 (07:10→21:05)
[2022-10-19] MEDS: DOCUSATE SODIUM/SENNA 50/8.6MG TAB PO SCH (07:11)
[2022-10-19] MEDS: LORATADINE 10 MG TAB PO SCH (07:11)
[2022-10-19] MEDS: CYANOCOBALAMIN (B-12) 500 MCG TABLET PO SCH (07:12)
[2022-10-19] MEDS: ASPIRIN 81 MG ECTAB PO SCH (07:12)
[2022-10-19] MEDS: guaiFENesin 600 MG TABCR PO SCH ×2 (07:13→21:06)
[2022-10-19] MEDS: FLUTICASONE PROPIONATE NA SPR 16 GM BTL SCH (07:13)
[2022-10-19] MEDS: HEPARIN SOD 5,000 UNIT/0.5 ML VIAL SQ SCH ×3 (07:13→21:08)
[2022-10-19] MEDS: AZITHROMYCIN 250 MG in DEXTROSE 5% 250 ML IV SCH (07:17)
[2022-10-19] MEDS: CEFEPIME 2,000 MG in SYRINGE 0 ML IV SCH ×2 (07:17→15:31)
[2022-10-19 07:18] LABS: Hematocrit (blood only) 32.8 % (34.1-44.9); Hemoglobin 10.4 g/dl (12.0-16.0); Mean Corpuscular Hgb Conc 31.7 g/dL (32.0-36.0); Mean Corpuscular Volume 88.2 fL (80.0-100.0); Mean Platelet Volume 9.6 fL (9.4-12.3); Platelet Count 463 K/uL (130-400); RDW Coefficient of Variation 13.8 % (11.5-14.5); RDW Standard Deviation 44.1 fL (36.4-46.3); Red Blood Count 3.72 M/uL (3.93-5.22); White Blood Count 8.02 K/ul (4.8-10.8)
[2022-10-19] MEDS: POLYETHYLENE (MIRALAX) 17 GM PACK PO SCH (07:18)
[2022-10-19] MEDS: LACTULOSE SYRUP 30 GM/45 ML UDP PO SCH ×5 (07:18→21:09)
[2022-10-19 07:53] LABS: BUN Creatinine Ratio 19.7 (10-20); Calcium 8.4 mg/dl (8.5-10.1); Creatinine Clr Calc Pharmacy 55.3 ml/min; Est GFR (Non-African American) 82.8 ml/min; Potassium 3.5 mmol/L (3.5-5.1)
--- NOTE | 2022-10-19 16:25 | Pulmonology Progress Note ---
Date of Service October 19, 2022 Assessment & Plan (1) Hypoxia: Plan: Likely multifactorial related to acute exacerbation of her bronchiectasis and volume overload given the elevated BNP and dilated RV noted on echo. I suspect she has an element of RV failure secondary to chronic respiratory disease. Wean FiO2 to maintain saturations above 89%. She likely has an element of chronic hypoxemia. Would recommend a two step on RA prior to discharge to qualify her fo r supplemental o2 as an outpatient. (2) Bronchiectasis with (acute) exacerbation: Plan: She has idiopathic bronchiectasis. It is unclear to me what work-up has been completed up to this point. Will defer further work-up to her outpatient shellfish processing laborer, Dr. Squires, including rheumatoid factor, CCP, immunoglobulins, Sjogren's labs, alpha-1 antitrypsin screening and so forth. 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 Other etiologies also include possible sarcoidosis although bronchiectasis is rarely secondary to sarcoidosis Continue nebs, hypertonic saline twice daily and percussive therapy. MRSA scree n was negative. Can likely transition to oral Levaquin upon discharge for a total abx treatment course of 10 days. Patient can be discharged from pulmonary perspective tomorrow. Will order sputum culture and AFB sputum cultures as she is at risk for colonization and/or infection with nontuberculous Mycobacterium given her CT chest findings. Sputum gram stain without organisms. Final cultures pending. AFB sputum cultures were canceled for unclear reasons. Regardless, I am doubtful that the patient would tolerate long-term therapy for nontuberculous Mycobacterium. (3) Volume overload: Plan: Appears to have responded well to diuresis. Maintain euvolemia. Plan No further recommendations at this time. Please call with questions. Will sign off. Thank you. Admission and Anticipated Discharge Date Admission Date: October 15, 2022 Subjective No significant changes. Per nursing, the patient was able to ambulate around the hallways on room air and saturating the mid 90s. She has been assessed by PT who recommends an assisted living facility versus home with family. Review of Systems Review of Systems: Difficult to obtain as the patient is tangential. No obvious complaints. Physical Exam Physical Exam: Constitutional: Elderly appearing female laying in bed with NC in place in NAD. Eyes: Pupils are equal round and reactive to light. Conjunctivae are normal. Anicteric sclera. Ears nose, mouth and throat: No obvious deformities noted. Neck: Trachea is midline. Visual inspection is normal. Respiratory: Mild crackles in the RLL. No wheezes. No significant tachypnea. Cardiovascular: Regular rate and rhythm. No murmurs. No edema. Gastrointestinal: Normal bowel sounds, soft, nontender and nondistended. No hepatosplenomegaly noted. Musculoskeletal: No cyanosis. Patient is able to move all extremities. Skin: No rashes, warm dry and intact. Neurologic: No obvious focal neurological deficits seen. Psychiatric: Tangential thought process. Normal mood. Results & Data Results & Data ([facility]) Vital Signs (Past 12 Hours) Vital Signs Temp Pulse Pulse Resp BP BP Pulse Ox 10/19/22 15:07 36.4 C L 107 H 20 108/66 96 10/19/22 14:57 98 H 18 91 10/19/22 11:30 36.8 C 91 H 20 96/64 L 100 10/19/22 10:31 88 20 94 10/19/22 08:27 10/19/22 07:49 36.9 C 85 20 103/67 93 10/19/22 07:35 89 18 95 10/19/22 07:04 77 10/19/22 07:03 77 O2 Del Method O2 Flow Rate 10/19/22 15:07 Nasal Cannula 2 10/19/22 14:57 Nasal Cannula 2 10/19/22 11:30 Nasal Cannula 2 10/19/22 10:31 Nasal Cannula 2 10/19/22 08:27 Nasal Cannula 2 10/19/22 07:49 Nasal Cannula 2 10/19/22 07:35 Nasal Cannula 2 10/19/22 07:04 10/19/22 07:03 PG Care Time/CCT Total # of Minutes Spent Total Time Spent with Patient: Total time spent is greater than 50% in coordination of care (as documented) at patient's floor/unit and/or counseling patient: Coding Level of Care Code 72373 Subseq Hosp Care Lvl 2 Diagnoses Hypoxia R09.02 Bronchiectasis with (acute) exacerbation J47.1 Volume overload E87.70
--- NOTE | 2022-10-19 19:06 | Hospitalist Progress Note ---
Date of Service October 19, 2022 Assessment & Plan (1) Hypoxia: Plan: Long history of smoking -Multiple multifactorial, related to exacerbation of her bronchiectasis although there is no wheezing or crackles on exam, patient is empirically being treated with antibiotic at this point, BNP elevated and RV is dilated on echo, started on scheduled DuoNeb nebulized but said this tonight and hypertonic saline and percussive vest therapy, cefepime added to Zithromax per decorating supervisor [employer] sputum culture ordered given she is at risk for infection with nontuberculous Mycobacterium given her chest CT finding -Doing better today, Stop IV Lasix on Tuesday. Cefepime Started on Levaquin Started on p.o. Lasix 40 mg daily (2) Anemia: Plan: Work-up consistent with iron deficiency anemia Continue IV iron patient has recent EGD/colonoscopy and diagnosed with colon polyps and esophagitis (3) UTI (urinary tract infection): Plan: The culture is not diagnostic, patient suffering from overactive bladder disorder, received Rocephin for 3 days, patient has a history of IBS/constipation/overflow diarrhea, patient presented with left lower quadrant crampy and UTI symptoms for 2 weeks with burning presented with worsening of 13,000 but now dropped to 9 patient is being followed by urology for overactive bladder (4) COPD (chronic obstructive pulmonary disease): Plan: x smoking/pulm nodule, prior bx showed non necrotizing granulomatous inflammation, generally not on inhaled medication but follows with Dr Squires (5) Anxiety: Plan: Continue Paxil (6) Nausea: Plan: Resolved (7) DVT prophylaxis: Plan Continue DuoNeb, continue Lasix intravenously, continue budesonide and hypertonic saline nebulizer treatment Admission and Anticipated Discharge Date Admission Date: October 15, 2022 Subjective No significant changes. Per nursing, the patient was able to ambulate around the hallways on room air and saturating the mid 90s. She has been assessed by PT who recommends an assisted living facility versus home with family. Physical Exam Physical Exam: Constitutional: Elderly appearing female laying in bed with NC in place in NAD. Eyes: Pupils are equal round and reactive to light. Conjunctivae are normal. Anicteric sclera. Ears nose, mouth and throat: No obvious deformities noted. Neck: Trachea is midline. Visual inspection is normal. Respiratory: Mild crackles in the RLL. No wheezes. No significant tachypnea. Cardiovascular: Regular rate and rhythm. No murmurs. No edema. Gastrointestinal: Normal bowel sounds, soft, nontender and nondistended. No hepatosplenomegaly noted. Musculoskeletal: No cyanosis. Patient is able to move all extremities. Skin: No rashes, warm dry and intact. Neurologic: No obvious focal neurological deficits seen. Psychiatric: Tangential thought process. Normal mood. Results & Data Results & Data ([facility]) Vital Signs (Past 12 Hours) Vital Signs Temp Pulse Pulse Resp BP BP Pulse Ox 10/19/22 15:07 36.4 C L 107 H 20 108/66 96 10/19/22 14:57 98 H 18 91 10/19/22 11:30 36.8 C 91 H 20 96/64 L 100 10/19/22 10:31 88 20 94 10/19/22 08:27 10/19/22 07:49 36.9 C 85 20 103/67 93 10/19/22 07:35 89 18 95 10/19/22 07:04 77 10/19/22 07:03 77 O2 Del Method O2 Flow Rate 10/19/22 15:07 Nasal Cannula 2 10/19/22 14:57 Nasal Cannula 2 10/19/22 11:30 Nasal Cannula 2 10/19/22 10:31 Nasal Cannula 2 10/19/22 08:27 Nasal Cannula 2 10/19/22 07:49 Nasal Cannula 2 10/19/22 07:35 Nasal Cannula 2 10/19/22 07:04 10/19/22 07:03 PG Care Time/CCT Total # of Minutes Spent Total Time Spent with Patient: Total time spent is greater than 50% in coordination of care (as documented) at patient's floor/unit and/or counseling patient: Coding Level of Care Code 40315 Subseq Hosp Care Lvl 2 Diagnoses Hypoxia R09.02 Anemia D64.9 UTI (urinary tract infection) N39.0 COPD (chronic obstructive pulmonary disease) J44.9 Anxiety F41.9 Nausea R11.0 DVT prophylaxis Z29.9
[2022-10-19] MEDS ORDERED: COUGH DROP (SUGAR FREE) LOZ 24 LOZ/1 BOX BUCCAL PRN (19:46)
[2022-10-20] MEDS: ALBUT/IPRATROP 3MG/0.5MG NEB 3 ML VIAL NEB SCH ×4 (02:19→11:17)
[2022-10-20] MEDS: LEVOTHYROXINE SODIUM 50 MCG TABLET PO SCH (05:56)
[2022-10-20] MEDS: BUDESONIDE 0.25 MG/2 ML VIAL (PULMICORT) NEB SCH (06:30)
[2022-10-20] MEDS: SODIUM CHLOR 7% 4 ML NEB NEB SCH (06:30)
[2022-10-20] MEDS ORDERED: AZITHROMYCIN 250 MG TAB PO SCH (09:00)
[2022-10-20] MEDS ORDERED: FUROSEMIDE 40 MG TAB PO SCH (09:00)
[2022-10-20] MEDS: ASPIRIN 81 MG ECTAB PO SCH (09:08)
[2022-10-20] MEDS: CYANOCOBALAMIN (B-12) 500 MCG TABLET PO SCH (09:08)
[2022-10-20] MEDS: FAMOTIDINE 20 MG TAB PO SCH (09:08)
[2022-10-20] MEDS: DOCUSATE SODIUM/SENNA 50/8.6MG TAB PO SCH (09:09)
[2022-10-20] MEDS: guaiFENesin 600 MG TABCR PO SCH (09:09)
[2022-10-20] MEDS: LORATADINE 10 MG TAB PO SCH (09:09)
[2022-10-20] MEDS: PARoxetine HCL 20 MG TAB PO SCH (09:10)
[2022-10-20] MEDS: LACTOBACILLUS ACIDOPHILUS 1 GM PACK PO SCH ×2 (09:10→13:09)
[2022-10-20] MEDS: LACTULOSE SYRUP 30 GM/45 ML UDP PO SCH ×2 (09:12→13:09)
[2022-10-20] MEDS: POLYETHYLENE (MIRALAX) 17 GM PACK PO SCH (09:12)
[2022-10-20] MEDS: HEPARIN SOD 5,000 UNIT/0.5 ML VIAL SQ SCH (09:12)
[2022-10-20] MEDS: FLUTICASONE PROPIONATE NA SPR 16 GM BTL SCH (09:13)
[2022-10-20 09:39] LABS: BUN Creatinine Ratio 14.1 (10-20); Calcium 8.7 mg/dl (8.5-10.1); Creatinine Clr Calc Pharmacy 51.4 ml/min; Est GFR (African American) 92.6 ml/min; Est GFR (Non-African American) 79.9 ml/min; Potassium 3.5 mmol/L (3.5-5.1)
[2022-10-20] MEDS ORDERED: levoFLOXacin 750 MG TAB PO SCH (11:00)
[2022-10-20] MEDS ORDERED: ALBUT/IPRATROP 3MG/0.5MG NEB 3 ML VIAL NEB PRN (12:12)
--- NOTE | 2022-10-20 19:41 | Discharge Summary ---
Date of Service October 20, 2022 Admission HPI Per Admitting Provider [id number] F presents to the emergency department via ambulance for evaluation of nausea urinary tract infection symptoms. She states that about 2 weeks ago she started feeling queasy in her stomach, cramps in the LLQ. She has a history of alternating constipation and overflow diarrhea for which she takes MiraLAX. She has been having burning with urination and urinary frequency recently. Her PCP checked her urine and she was diagnosed with a UTI per patient and they started her on Macrobid and Zofran. She has a history of emphysema and a nodule on her lung, she has chronic cough that is non productive. Denies any shortness of breath, but her pulse ox was low in the ambulance. Denies any chest pain, abdominal pain, or vomiting. She denies any fevers. On presentation she has elevated troponin, minor lateral changes on ECG she denies any chest pain pressure palpitations Presentation viral testing was negative for respiratory viruses Principal Diagnosis #Acute hypoxic respiratory failure multifactorial, combination of diastolic heart failure, bronchiectasis #Acute diastolic heart failure #Severe iron deficiency anemia possibly secondary to diet #UTI #Severe constipation Discharge Exam Constitutional: Elderly appearing female laying in bed with NC in place in NAD. Eyes: Pupils are equal round and reactive to light. Conjunctivae are normal. Anicteric sclera. Ears nose, mouth and throat: No obvious deformities noted. Neck: Trachea is midline. Visual inspection is normal. Respiratory: Mild crackles in the RLL. No wheezes. No significant tachypnea. Cardiovascular: Regular rate and rhythm. No murmurs. No edema. Gastrointestinal: Normal bowel sounds, soft, nontender and nondistended. No hepatosplenomegaly noted. Musculoskeletal: No cyanosis. Patient is able to move all extremities. Skin: No rashes, warm dry and intact. Neurologic: No obvious focal neurological deficits seen. Psychiatric: Tangential thought process. Normal mood. Discharge Data Allergies Allergy/AdvReac Type Severity Reaction Status Date / Time No Known Drug Allergies Allergy Verified 08/23/22 13:52 Consultations 10/15/22 12:08 ED Decision to Admit Stat 10/18/22 14:51 Consult Pulmonology Routine Hospital Course (1) Hypoxia: Long history of smoking -Multiple multifactorial, related to exacerbation of her bronchiectasis although there is no wheezing or crackles on exam, patient is empirically being treated with antibiotic at this point, BNP elevated and RV is dilated on echo, started o n scheduled DuoNeb nebulized b, hypertonic saline and percussive vest therapy, cefepime added to Zithromax per disability manager [employer] sputum culture ordered given she is at risk for infection with nontub erculous Mycobacterium given her chest CT finding -Discussed with consulting disability manager, recommend to discharge patient on Levaquin, patient was discharged on 10-day course of Levaquin which provided Discharged on Lasix 40 mg daily BMP in 1 week Follow-up with disability manager in 2 weeks -Defer to primary care doctor if the patient requested follow-up with cardiology (2) Anemia: Work-up consistent with iron deficiency anemia IV iron - patient has recent EGD/colonoscopy -Possibly because of the diet patient is a vegetarian, patient is advised to have iron rich vegetables on her meal, patient discharged on iron pill (3) UTI (urinary tract infection): The culture is not diagnostic, patient suffering from overactive bladder disorder, received Rocephin for 3 days, patient has a history of IBS/constipation/overflow diarrhea, patient presented with left lower quadrant crampy and UTI symptoms for 2 weeks with burning presented with worsening of 13,000 but now dropped to 9 patient is being followed by urology for overactive bladder (4) Constipation: Severe constipation, started patient on lactulose MiraLAX, (5) COPD (chronic obstructive pulmonary disease): x smoking/pulm nodule, prior bx showed non necrotizing granulomatous inflammation, generally not on inhaled medication but follows with Dr Squires (6) Anxiety: Continue Paxil (7) Nausea: Resolved (8) DVT prophylaxis: Plan Continue DuoNeb, continue Lasix intravenously, continue budesonide and hypertonic saline nebulizer treatment Total Time Total Time Spent Total Time Spent (In Minutes): 45 Discharge Plan Discharge Items Patient Disposition: Home - Self-Care Reason For Visit: UTI Discharge Diagnosis: CHF , Iron deficiency Anemia, UTI , acute hypoxia, Bronchiectasis , acute pulmonary process Condition on Discharge: Good Activity: Resume your previous activity Lifting: Gradually increase as tolerated Sexual Activity: When tolerated Driving/Machine Use: No limitations Weightbearing: Full weightbearing Non-emergency contact: Primary Care Provider and Sleeper Cutter Call non-emergency contact if: you have any medication questions, your symptoms worsen and your pain is not controlled Follow-up/Referrals: Sam Hays MD [Primary Care Provider] - Diet: Heart Healthy Addtl Attending Provider Instructions: Please follow with your disability manager in one week. You are suffering from Iron Deficiency Anemia , given you are vegetarians please have Iron rich vegetables on your diet. please follow with a popped corn oven attendant for severe Iron deficency anemia Pending Studies at Discharge: No Stand-Alone Forms: My [facility], Smoking Cessation Medications and DC Order Prescriptions: New furosemide 40 mg Tablet 40 mg PO QAM Qty: 30 0RF levofloxacin 750 mg Tablet 750 mg PO DAILY@1100 Qty: 7 0RF Lactobacillus acidoph-L.bulgar [Floranex] 100 million cell Granules In Packet 1 g PO TIDM Qty: 30 0RF polyethylene glycol 3350 [Miralax] 17 gram Powder In Packet 17 g PO DAILY Qty: 30 0RF aspirin 81 mg Tablet,Delayed Release (Dr/Ec) 81 mg PO QAM Qty: 30 0RF William-Sequels (iron-vit c) 200 mg (65 mg iron)-25 mg tablet extended release 1 tab PO DAILY Qty: 90 0RF lactulose 10 gram/15 mL solution 20 g PO QID PRN (Reason: constipation) Qty: 237 0RF Continued fluticasone propionate 50 mcg/actuation spray,suspension 2 spray INTNAS DAILY PRN (Reason: Nasal Congestion) Qty: 15.8 6RF Rx Instructions: administer into each nostril EVERY MORNING cholecalciferol (vitamin D3) 25 mcg (1,000 unit) capsule 25 mcg PO DAILY loratadine [Allergy Relief (loratadine)] 10 mg tablet 10 mg PO DAILY Gemtesa 75 mg tablet 75 mg PO DAILY Qty: 90 1RF levothyroxine 50 mcg tablet 50 mcg PO QAM paroxetine HCl [Paxil] 40 mg tablet PO DAILY Discharge Orders: Discharge Order (Routine); Ordered 10/20/22 Ordered By: Jeremiah Sims/Other Patient Handouts: Understanding Bronchiectasis, ED COPD Flare Admission Data Admit Date/Time: 10/15/22 11:15 Attending Provider: Jeremiah Romero Admit Provider: Randal Jade Primary Care Provider: Sam Hays Other Providers: Randal Jade ; Ángela Gordon ; Franc Summers Other Interventions: Discharge Summary Assessment (RN) Last Done: 10/20/22 13:25 Coding Level of Care Code D/C DAY MANAGEMENT >30 MINS Diagnoses Hypoxia R09.02 Anemia D64.9 UTI (urinary tract infection) N39.0 Constipation K59.00 Constipation type: unspecified constipation type COPD (chronic obstructive pulmonary disease) J44.9 Anxiety F41.9 Nausea R11.0 DVT prophylaxis Z29.9
== END 2022-10-20 15:15 | disposition home or self-care (01) | DRG 689 ==
LOC: ED 07:09 → EDINP 11:15 → SUATTDRO 11:15 → 2N 13:22

== ENCOUNTER 2022-10-31 08:57 | Inpatient (IN) ==
--- NOTE | 2022-10-31 09:31 | XRay Report ---
XR chest 1V portable HISTORY: weakness COMPARISON: Chest 10/15/2022. FINDINGS: No pneumothorax. No pleural effusions. The cardiac silhouette is normal in size. Mild diffu se interstitial thickening persists. No new focal lung consolidations identified. IMPRESSION: No change in the diffuse interstitial thickening which could be chronic. ACT 112: Negative or not required by law. Electronically signed by: Brayan Dwyer M.D. 10/31/2022 9:29 AM
--- NOTE | 2022-10-31 09:39 | Emergency Department Note ---
Impression & Plan Hypoxia, Nausea, Weakness, Acute dehydration, Dizziness, Leukocytosis ED Provider Note NAME: DARWIN CORREA AGE: 82 SEX: F : 1940 ARRIVES VIA: Ambulance INFORMANT: [Patient][ems, nursing] ED PROVIDER(S): [Keo Early MD] CHIEF COMPLAINT: Illness HISTORY OF PRESENT ILLNESS: The patient is an 82-year-old female presents with nausea, dizziness and weakness. She was recently in the hospital around 10 days ago. She was in for volume overload and a potential UTI. She was discharged on a week of [facility]. Patient presents back today with pretty much the same symptoms as she noted with her last hospitalization. She complains of being thirsty and quite nauseated. She is quite weak and cannot function at home. She does live alone. The patient was not discharged from the hospital on oxygen. As per nursing staff, the patient's O2 saturation was 87% upon arrival. O2 was applied and her O2 saturation improved. The patient is concerned that she may have a UTI, she has not had fever. No increased cough. PMHx/PSHx: See Below SOCIAL HISTORY: See Below. PHYSICAL EXAM: GENERAL: Patient is in no acute distress. HEENT: No acute trauma, normocephalic atraumatic, mucous membranes dry, no nasal congestion NECK: No stridor, no adenopathy, no meningismus, trachea is midline. LUNGS: Clear to auscultation bilaterally, no wheeze, no rhonchi, breath sounds equal. Breath sounds are diminished bilaterally. HEART: Mildly tachycardic, no obvious murmur, regular rhythm. ABDOMEN: Soft, nontender, bowel sounds positive, no peritonitis. EXTREMITIES: No cyanosis or edema, full range of motion of all the joints without pain or difficulty, no signs for acute trauma. NEUROLOGIC: Oriented x 3, no acute motor or sensory deficits, no focal weakness. SKIN: No rash, no jaundice, no diaphoresis. DIFFERENTIAL DIAGNOSIS: Infection, UTI, dehydration, COVID-19, RSV, influenza, metabolic abnormality, hypo/hyperglycemia, electrolyte disturbance, anemia, hypoxia, cardiac sources, intracerebral event, stroke, TIA, as well as other pathologies. EMERGENCY DEPARTMENT COURSE/PROCEDURES: Prior/Outside records reviewed: EMS sheet/documentation, previous hospitalization discharge records. ECG per my interpretation: Indication was weakness. The ECG shows a sinus tachycardia with a rate of 101. There is no ST elevation, no PVCs. There is some baseline artifact. The QTc is 448. Continuous Cardiac Monitoring per my interpretation: An order was placed for continuous cardiac monitoring. The monitor shows a rate of 102 with sinus tachycardia. MEDICAL DECISION MAKING: There is a very mild leukocytosis, this could be consistent with infection or the stress of her current situation. There was a normal hemoglobin and platelet count. No renal failure or significant electrolyte abnormality. No concerning liver enzyme elevation. ECG showed a sinus tachycardia, no ST elevation. Cardiac enzyme testing x1 was not consistent with acute cardiac injury. Chest x-ray shows some chronic parenchymal change, no CHF or pneumonia. BNP was not elevated making fluid overload unlikely. The patient appeared to be in a euthyroid state. Urinalysis shows some contamination, no infection. COVID, influenza and RSV test were negative. On exam, the patient appeared quite dehydrated. She was awake and interactive. No focal neurologic finding. No fever. Patient received oral fluids as well as IV saline. She was given IV Zofran for nausea. She required O2 supplementation to keep her O2 saturation over 90%. The patient lives alone, she is hypoxic, she is weak, she is not functioning well on her own and appears acutely dehydrated. She mentioned to the nursing staff that she may at this point in her life, require assisted living or fdc care. The patient is in need of a hospital stay, further hydration/care. She may eventually require placement at a care facility. I did speak with the patient at length, I talked to case management, the on-call hospitalist was consulted. DISPOSITION: Patient has some social issues, dehydration, hypoxia, weakness that all would warrant a hospital stay. 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 Volume overload Surgical History H/O total adrenalectomy History of ear surgery STAPEDECTOMY History of nephrectomy History of tonsillectomy and adenoidectomy Family History Mother Diabetes Other Family history non-contributory Social History Smoking Status: Former smoker Hx Alcohol Use: Yes Alcohol type: wine Hx Substance Use: No Preferred Language: Faroese Communication Ability: Effective Mill Oiler Required: No Beliefs That Will Affect Care: None Current Living Situation: Alone and [facility] Feels Safe at Home: Yes Childhood Exposure to Second-Hand Smoke: No caffeine: Yes (trying to limit as best she can) Seatbelt Use: always Assistive Devices: None Allergies Allergies Allergy/AdvReac Type Severity Reaction Status Date / Time No Known Drug Allergies Allergy Verified 08/23/22 13:52 Home Meds Home Medications Medication Instructions Recorded Confirmed levothyroxine 50 mcg tablet 50 mcg PO QAM 10/07/18 08/23/22 cholecalciferol (vitamin D3) 25 25 mcg PO DAILY 03/21/20 08/23/22 mcg (1,000 unit) capsule loratadine 10 mg tablet (Allergy 10 mg PO DAILY 03/21/20 08/23/22 Relief (loratadine)) paroxetine HCl 40 mg tablet (Paxil) mg PO DAILY 10/16/22 Previous Rx's Medication Instructions Recorded vibegron 75 mg tablet (Gemtesa) 75 mg PO DAILY #90 tabs 01/22/22 fluticasone propionate 50 2 spray intranasal DAILY PRN Nasal 04/07/22 mcg/actuation nasal Congestion #15.8 mL spray,suspension Lactobacillus acidophilus, 1 g PO TIDM #30 ea 10/20/22 bulgaricus 100 million cell granules packet (Floranex) aspirin 81 mg tablet,delayed 81 mg PO QAM #30 tabs 10/20/22 release ferrous fumarate 200 mg (65 mg 1 tab PO DAILY #90 tabs 10/20/22 iron)-vit C 25 mg tablet,extend release (William-Sequels (iron-vit c)) furosemide 40 mg tablet 40 mg PO QAM #30 tabs 10/20/22 lactulose 10 gram/15 mL oral 20 g (30 mL) PO QID PRN 10/20/22 solution constipation #237 mL levofloxacin 750 mg tablet 750 mg PO DAILY@1100 #7 tabs 10/20/22 polyethylene glycol 3350 17 gram 17 g PO DAILY #30 ea 10/20/22 oral powder packet (Miralax) Results & Data (ED) Vital Signs Vital Signs - 24 hr 10/31/22 09:12 10/31/22 09:12 10/31/22 09:18 Temperature 37.1 C Temperature Source Oral Oral Pulse Rate 101 H Respiratory Rate 16 Blood Pressure 137/83 Blood Pressure Mean 101 Pulse Oximetry 87 L Oxygen Delivery Method Room Air Room Air Sepsis Recent Fever Within 48 Hours No Sepsis New/Unexplained Change in Mental Status No Sepsis Action Taken by Nursing No Action Required Home Medications Current Medication List: was personally reviewed by me Laboratory Data Attestation: I reviewed the patient's lab results. 10/31/22 09:30 10/31/22 09:30 Lab Results 10/31/22 10/31/22 10/31/22 Range/Units 09:10 09:30 09:30 WBC 11.22 H (4.8-10.8) K/ul RBC 4.30 (3.93-5.22) M/uL Hgb 12.2 (12.0-16.0) g/dl Hct 38.0 (34.1-44.9) % MCV 88.4 (80.0-100.0) fL MCH 28.4 (25.0-34.0) pg MCHC 32.1 (32.0-36.0) g/dL RDW Std Deviation 48.4 H (36.4-46.3) fL RDW Coeff of Aime 15.1 H (11.5-14.5) % Plt Count 252 (130-400) K/uL MPV 10.3 (9.4-12.3) fL Immature Gran % (Auto) 0.4 % Neut % (Auto) 91.4 % Lymph % (Auto) 3.2 % [place] % (Auto) 3.7 % Eos % (Auto) 1.0 % Baso % (Auto) 0.3 % Neut # (Auto) 10.26 H (1.4-6.5) K/uL Lymph # (Auto) 0.36 L (1.2-3.4) K/uL [place] # (Auto) 0.42 (0.24-0.82) K/uL Eos # (Auto) 0.11 (0-0.50) K/uL Baso # (Auto) 0.03 (0-0.2) K/uL Immature Gran # (Auto) 0.04 H (0.00-0.02) K/uL Sodium 138 (136-145) mmol/L Potassium 3.5 (3.5-5.1) mmol/L Chloride 103 (98-107) mmol/L Carbon Dioxide 29 (21-32) mmol/L Anion Gap 6 (3-11) BUN 16 (6-23) mg/dl Creatinine 0.80 (0.6-1.2) mg/dl Est Cr Clr Drug Dosing 44.3 ml/min Est GFR ( Amer) 80.1 ml/min Est GFR (Non-Af Amer) 69.1 ml/min BUN/Creatinine Ratio 20.0 (10-20) Glucose 106 H (70-99(Fasting)) mg/dl Calcium 9.2 (8.5-10.1) mg/dl Magnesium 1.9 (1.7-2.4) mg/dl Total Bilirubin 0.5 (0.2-1.0) mg/dl AST 22 (13-39) U/L ALT 10 (7-52) U/L Alkaline Phosphatase 60 (34-104) U/L Troponin I High Sens 5.1 (0-14) pg/ml B-Natriuretic Peptide (0-100) pg/ml Total Protein 7.2 (6.0-8.3) gm/dl Albumin 3.5 (3.4-5.0) gm/dl Globulin 3.7 (2.5-4.0) gm/dl Albumin/Globulin Ratio 0.9 (0.9-2) TSH (0.300-4.500) uIu/ml Urine Color Urine Appearance (Clear) Urine pH (4.5-7.5) Ur Specific [place] (1.000-1.030) Urine Protein (Negative) Urine Glucose (UA) (Negative) Urine Ketones (Negative) Urine Blood (Negative) Urine Nitrite (Negative) Urine Bilirubin (Negative) Urine Urobilinogen (Negative) Ur Leukocyte Esterase (Negative) Urine WBC (Auto) (0-5) /hpf Urine RBC (Auto) (0-4) /hpf U Hyaline Cast (Auto) (0-5) /lpf U Epithel Cells (Auto) (0-5) /lpf Urine Bacteria (Auto) (Negative) SARS-CoV-2 (PCR) NEGATIVE (Negative) Influenza Type A (PCR) Negative (Neg) Influenza Type B (PCR) Negative (Neg) RSV (RT-PCR) Negative (Neg) 10/31/22 10/31/22 10/31/22 Range/Units 09:30 09:30 10:20 WBC (4.8-10.8) K/ul RBC (3.93-5.22) M/uL Hgb (12.0-16.0) g/dl Hct (34.1-44.9) % MCV (80.0-100.0) fL MCH (25.0-34.0) pg MCHC (32.0-36.0) g/dL RDW Std Deviation (36.4-46.3) fL RDW Coeff of Aime (11.5-14.5) % Plt Count (130-400) K/uL MPV (9.4-12.3) fL Immature Gran % (Auto) % Neut % (Auto) % Lymph % (Auto) % [place] % (Auto) % Eos % (Auto) % Baso % (Auto) % Neut # (Auto) (1.4-6.5) K/uL Lymph # (Auto) (1.2-3.4) K/uL [place] # (Auto) (0.24-0.82) K/uL Eos # (Auto) (0-0.50) K/uL Baso # (Auto) (0-0.2) K/uL Immature Gran # (Auto) (0.00-0.02) K/uL Sodium (136-145) mmol/L Potassium (3.5-5.1) mmol/L Chloride (98-107) mmol/L Carbon Dioxide (21-32) mmol/L Anion Gap (3-11) BUN (6-23) mg/dl Creatinine (0.6-1.2) mg/dl Est Cr Clr Drug Dosing ml/min Est GFR ( Amer) ml/min Est GFR (Non-Af Amer) ml/min BUN/Creatinine Ratio (10-20) Glucose (70-99(Fasting)) mg/dl Calcium (8.5-10.1) mg/dl Magnesium (1.7-2.4) mg/dl Total Bilirubin (0.2-1.0) mg/dl AST (13-39) U/L ALT (7-52) U/L Alkaline Phosphatase (34-104) U/L Troponin I High Sens (0-14) pg/ml B-Natriuretic Peptide 68 (0-100) pg/ml Total Protein (6.0-8.3) gm/dl Albumin (3.4-5.0) gm/dl Globulin (2.5-4.0) gm/dl Albumin/Globulin Ratio (0.9-2) TSH 2.239 (0.300-4.500) uIu/ml Urine Color Yellow Urine Appearance Cloudy A (Clear) Urine pH 8.5 H (4.5-7.5) Ur Specific [place] 1.011 (1.000-1.030) Urine Protein Negative (Negative) Urine Glucose (UA) Negative (Negative) Urine Ketones Negative (Negative) Urine Blood Negative (Negative) Urine Nitrite Negative (Negative) Urine Bilirubin Negative (Negative) Urine Urobilinogen Negative (Negative) Ur Leukocyte Esterase Negative (Negative) Urine WBC (Auto) 1-5 (0-5) /hpf Urine RBC (Auto) 0-4 (0-4) /hpf U Hyaline Cast (Auto) 1-5 (0-5) /lpf U Epithel Cells (Auto) 10-20 H (0-5) /lpf Urine Bacteria (Auto) Negative (Negative) SARS-CoV-2 (PCR) (Negative) Influenza Type A (PCR) (Neg) Influenza Type B (PCR) (Neg) RSV (RT-PCR) (Neg) Administered Medications Discontinued Medications Sodium Chloride (Nss 1000ml) 500 mls @ 999 mls/hr IV .Q31M ONE Stop: 10/31/22 10:10 Last Infusion: 10/31/22 10:29 Dose: 0 mls/hr Documented By: Admin: 10/31/22 09:55 Dose: 999 mls/hr Documented By: YASMANI Imaging Data Radiologist's Impression: Chest X-Ray 10/31/22 09:13 XR chest 1V portable HISTORY: weakness COMPARISON: Chest 10/15/2022. FINDINGS: No pneumothorax. No pleural effusions. The cardiac silhouette is normal in size. Mild diffuse interstitial thickening persists. No new focal lung consolidations identified. IMPRESSION: No change in the diffuse interstitial thickening which could be chronic. ACT 112: Negative or not required by law. Electronically signed by: Brayan Dwyer M.D. 10/31/2022 9:29 AM Discharge Plan Visit Data Chief Complaint: Illness Stated Complaint: WEAKNESS, NAUSEA, DIZZINESS ED Provider: Keo Early Prescriptions Prescriptions: No Action fluticasone propionate 50 mcg/actuation spray,suspension 2 spray INTNAS DAILY PRN (Reason: Nasal Congestion) Qty: 15.8 6RF Rx Instructions: administer into each nostril EVERY MORNING cholecalciferol (vitamin D3) 25 mcg (1,000 unit) capsule 25 mcg PO DAILY loratadine [Allergy Relief (loratadine)] 10 mg tablet 10 mg PO DAILY Gemtesa 75 mg tablet 75 mg PO DAILY Qty: 90 1RF levothyroxine 50 mcg tablet 50 mcg PO QAM paroxetine HCl [Paxil] 40 mg tablet PO DAILY furosemide 40 mg Tablet 40 mg PO QAM Qty: 30 0RF levofloxacin 750 mg Tablet 750 mg PO DAILY@1100 Qty: 7 0RF Lactobacillus acidoph-L.bulgar [Floranex] 100 million cell Granules In Packet 1 g PO TIDM Qty: 30 0RF polyethylene glycol 3350 [Miralax] 17 gram Powder In Packet 17 g PO DAILY Qty: 30 0RF aspirin 81 mg Tablet,Delayed Release (Dr/Ec) 81 mg PO QAM Qty: 30 0RF William-Sequels (iron-vit c) 200 mg (65 mg iron)-25 mg tablet extended release 1 tab PO DAILY Qty: 90 0RF lactulose 10 gram/15 mL solution 20 g PO QID PRN (Reason: constipation) Qty: 237 0RF
[2022-10-31] MEDS ORDERED: SODIUM CHLORIDE 0.9% 1000ML 500 ML IV ONE (09:40)
[2022-10-31 09:52] LABS: Hemoglobin 12.2 g/dl (12.0-16.0); Mean Corpuscular Hemoglobin 28.4 pg (25.0-34.0); Mean Corpuscular Hgb Conc 32.1 g/dL (32.0-36.0); Mean Corpuscular Volume 88.4 fL (80.0-100.0); Mean Platelet Volume 10.3 fL (9.4-12.3); Platelet Count 252 K/uL (130-400); RDW Coefficient of Variation 15.1 % (11.5-14.5); RDW Standard Deviation 48.4 fL (36.4-46.3); White Blood Count 11.22 K/ul (4.8-10.8)
[2022-10-31 10:09] LABS: Influenza A virus by PCR Negative (Neg); Influenza B virus by PCR Negative (Neg); RSV by PCR Negative (Neg); SARS CoV2 RNA(COVID-19) Ceph NEGATIVE (Negative)
[2022-10-31 10:16] LABS: Albumin Globulin Ratio 0.9 (0.9-2); Albumin Level 3.5 gm/dl (3.4-5.0); Bilirubin,Total 0.5 mg/dl (0.2-1.0); Calcium 9.2 mg/dl (8.5-10.1); Creatinine Clr Calc Pharmacy 44.3 ml/min; Est GFR (African American) 80.1 ml/min; Est GFR (Non-African American) 69.1 ml/min; Globulin 3.7 gm/dl (2.5-4.0); Magnesium 1.9 mg/dl (1.7-2.4); Potassium 3.5 mmol/L (3.5-5.1); Total Protein 7.2 gm/dl (6.0-8.3)
[2022-10-31 10:20] LABS: Troponin I High Sensitivity 5.1 pg/ml (0-14)
[2022-10-31 10:37] LABS: Basophils # (auto) 0.03 K/uL (0-0.2); Basophils % (auto) 0.3 %; Eosinophils # (auto) 0.11 K/uL (0-0.50); Immature Granulocytes # (auto) 0.04 K/uL (0.00-0.02); Immature Granulocytes % (auto) 0.4 %; Lymphocytes # (auto) 0.36 K/uL (1.2-3.4); Lymphocytes % (auto) 3.2 %; Monocytes # (auto) 0.42 K/uL (0.24-0.82); Monocytes % (auto) 3.7 %; Neutrophils # (auto) 10.26 K/uL (1.4-6.5); Neutrophils % (auto) 91.4 %
[2022-10-31 10:41] LABS: Appearance Urine Cloudy (Clear); Bacteria Urine Automated Negative (Negative); Bilirubin Urine Negative (Negative); Blood Urine Negative (Negative); Color Urine Yellow; Glucose Urine UA Negative (Negative); Ketones Urine Negative (Negative); Leukocyte Esterase Urine Negative (Negative); Nitrite Urine Negative (Negative); Protein Urine Negative (Negative); RBC Urine Automated 0-4 /hpf (0-4); Specific Gravity Urine 1.011 (1.000-1.030); Urobilinogen Urine Negative (Negative); pH Urine 8.5 (4.5-7.5)
--- NOTE | 2022-10-31 10:49 | History & Physical Report ---
Date of Service October 31, 2022 Assessment & Plan (1) Dehydration: Plan: Discussed with case management, though patient would likely be medically stable for discharge to a rehab/skilled facility this evening after IV fluids for rehydration, her insurance will not authorize her for same day placement. 2 step test will be ordered and PT/OT consults placed to assist with placement. Patient requesting [facility]. Anticipate pending 2 step/PT, OT evals, she will likely be able to be discharged tomorrow 11/01 on home O2. - Suspect she has been overdiuresed since d/c on 10/20 when she was admitted for volume overload diuresed on IV Lasix and discharged on oral Lasix 40 mg daily. On last admission, 10/15 echo at that time had an error, initially reported EF 20%, however was amended to reflect EF > 70%, no wma, possible RV volume overload, borderline dilated RV with mildly reduces systolic function. - Hold diuretics, provide IV fluids and encourage p.o. intake. - Fortunately, patient without WANG or electrolyte derangement. - PT/OT shanna, 2 step pending. (2) Hypoxia: Plan: - Patient not complaining of SOB, has an unchanged chronic cough. No acute cause for for hypoxia today but on last admission, patient had a 2 step test that indicated she need O2 at home, though was sent without any. - 87% on RA, BNP 68, troponin 5.1, CXR shows no change in diffuse interstitial thickening which is likely chronic. No pleural effusions or pneumonia. Leukocytosis likely due to hemoconcentration from dehydration. - Will repeat 2 step (needed to re-qualify) and anticipate she will be able to be discharged to a facility tomorrow on 2-3 L NC for O2 < 88% - Hypoxia thought to be likely multifactorial by pulm on last admission, given acute exacerbation of bronchiectasis volume overload at that time. 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 She had granulomatous nodules on biopsy from 2019 making necrobiotic nodule and bronchiectasis from rheumatoid arthritis highest on differential per their note. Patient does follow-up with pulmonology as an outpatient, will defer further work-up to them. (3) Anemia: Plan: - Likely due to vegetarian diet. Continue iron supplement, encouraged eating foods high in iron. - 12.2 today, improved from last admission where it was in the 10 range but likely hemoconcentrated due to dehydration. (4) COPD (chronic obstructive pulmonary disease): Plan: - On inhalers, anticipates she will be discharged on home O2. - Continue follow-up with pulmonology as outpatient. - Encouraged continued tobacco cessation. (5) Chronic constipation: Plan: - Continue lactulose, miralax daily. (6) CKD (chronic kidney disease): Plan: - Cr .80, baseline. 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 - Avoid nephrotoxins, renally dose meds as able. (7) Mixed incontinence: Plan: - Continue Gemtesa. (8) Hypothyroidism: Plan: - Continue levothyroxine. Plan - Admit to med/surg. - SCDs ordered, encouraged. -Full Code. History of Present Illness Chief Complaint: weakness, nausea, and feeling dehydrated x several days Primary Care Provider: Sam Hays MD Shira Lopez is an 82 y/o male with past medical history of COPD, CKD, hypothyroidism, anxiety, and iron deficiency anemia who is presenting today with complaints of weakness, nausea, and feeling very dehydrated. Patient was admitted 10/15- for volume overload suspected to be due to right-sided heart failure. She was discharged with a new prescription for Lasix 40 mg daily, has been taking this regularly continues to feel weak, dizzy, nauseous and very very dry. She did not have any falls or syncopal episodes. No fever chills, change to chronic cough or shortness of breath. No abdominal pain, has been nauseous and vomited twice. She is concerned she may have a UTI, also requesting placement as she feels she cannot take care of her self at home anymore due to this weakness. On presentation, she is mildly tachycardic with HR 101, SPO2 87% on room air. Labs largely unremarkable, she is WBC 11, the patient is very very dry appearing dehydrated, suspect is hemoconcentrated. Renal function is at baseline, no electrolyte abnormalities. BNP is 68, troponin 5.1. Urine without evidence of infection. Negative for COVID/flu/RSV. CXR showed no change in device interstitial thickening which could be chronic. Allergies Allergy/AdvReac Type Severity Reaction Status Date / Time No Known Drug Allergies Allergy Verified 08/23/22 13:52 Home Medications Medication Instructions Recorded Confirmed Type levothyroxine 50 mcg tablet 50 mcg PO QAM 10/07/18 08/23/22 History cholecalciferol (vitamin D3) 25 25 mcg PO DAILY 03/21/20 08/23/22 History mcg (1,000 unit) capsule loratadine 10 mg tablet (Allergy 10 mg PO DAILY 03/21/20 08/23/22 History Relief (loratadine)) vibegron 75 mg tablet (Gemtesa) 75 mg PO DAILY #90 tabs 01/22/22 08/23/22 Rx fluticasone propionate 50 2 spray intranasal DAILY PRN Nasal 04/07/22 08/23/22 Rx mcg/actuation nasal Congestion #15.8 mL spray,suspension paroxetine HCl 40 mg tablet (Paxil) mg PO DAILY 10/16/22 History Lactobacillus acidophilus, 1 g PO TIDM #30 ea 10/20/22 Rx bulgaricus 100 million cell granules packet (Floranex) aspirin 81 mg tablet,delayed 81 mg PO QAM #30 tabs 10/20/22 Rx release ferrous fumarate 200 mg (65 mg 1 tab PO DAILY #90 tabs 10/20/22 Rx iron)-vit C 25 mg tablet,extend release (William-Sequels (iron-vit c)) furosemide 40 mg tablet 40 mg PO QAM #30 tabs 10/20/22 Rx lactulose 10 gram/15 mL oral 20 g (30 mL) PO QID PRN 10/20/22 Rx solution constipation #237 mL levofloxacin 750 mg tablet 750 mg PO DAILY@1100 #7 tabs 10/20/22 Rx polyethylene glycol 3350 17 gram 17 g PO DAILY #30 ea 10/20/22 Rx oral powder packet (Miralax) 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 Volume overload Surgical History H/O total adrenalectomy History of ear surgery STAPEDECTOMY History of nephrectomy History of tonsillectomy and adenoidectomy Family History Mother Diabetes Other Family history non-contributory Social History Smoking Status: Former smoker Hx Alcohol Use: Yes Alcohol type: wine Hx Substance Use: No Preferred Language: Yemeni Communication Ability: Effective 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 Beliefs That Will Affect Care: None Current Living Situation: Alone and [facility] Feels Safe at Home: Yes Childhood Exposure to Second-Hand Smoke: No caffeine: Yes (trying to limit as best she can) Seatbelt Use: always Assistive Devices: None Review of Systems Review of Systems: Constitutional: weakness, fatigue ongoing for several days; No fever/chills, myalgias, anorexia, night sweats Eyes: No diplopia, no worsening or blurred vision ENT: normal hearing, no trouble swallowing Respiratory: No change in chronic cough,intermittently SOB with activity Cardiovascular: No chest pain, tightness or palpitations Abdomen: nausea, vomiting x2 in past 49 hours; no abdominal pain, diarrhea or constipation : Denies dysuria, hematuria, increased urgency/frequency, urinary retention Musculoskeletal: No joint pain, calf pain, swelling Neurologic: No weakness, numbness/tingling, or balance problems Psychiatric: No anxiety or depression Skin: No rash or itch Physical Exam Physical Exam: General: awake, alert, no apparent distress, on 3 L NC Head: Normocephalic, atraumatic ENT: PERRL, EOMI, no pharyngeal exudate, mucous membranes very dry Chest: Clear to auscultation, on room air, no adventitious breath sounds Cardiac: Regular rate and rhythm, no murmur, no JVD, normal peripheral pulses, good capillary refill Abdominal: NABS x 4 quadrants, soft, nontender to palpation, no rebound, guarding or tenderness Extremities: Normal inspection, no peripheral edema or erythema, calfs nontender to palpation Psych: Normal mood and affect Neuro: AAO x 3, strength intact bilaterally and rated 5/5, no motor deficits, speech is clear, no peripheral sensory deficits Skin: no rash or erythema Results & Data Results & Data ([facility] [place]) Vital Signs (Past 12 Hours) Vital Signs Temp Pulse Resp BP Pulse Ox O2 Del Method 10/31/22 09:18 Room Air 10/31/22 09:12 37.1 C 101 H 16 137/83 87 L Room Air Laboratory Results Abnormal lab results 10/31/22 10/31/22 10/31/22 Range/Units 09:30 09:30 10:20 WBC 11.22 H (4.8-10.8) K/ul RDW Std Deviation 48.4 H (36.4-46.3) fL RDW Coeff of Aime 15.1 H (11.5-14.5) % Neut # (Auto) 10.26 H (1.4-6.5) K/uL Lymph # (Auto) 0.36 L (1.2-3.4) K/uL Immature Gran # (Auto) 0.04 H (0.00-0.02) K/uL Glucose 106 H (70-99(Fasting)) mg/dl Urine Appearance Cloudy A (Clear) Urine pH 8.5 H (4.5-7.5) U Epithel Cells (Auto) 10-20 H (0-5) /lpf Diagnostic Findings Chest X-Ray 10/31/22 09:13 XR chest 1V portable HISTORY: weakness COMPARISON: Chest 10/15/2022. FINDINGS: No pneumothorax. No pleural effusions. The cardiac silhouette is normal in size. Mild diffuse interstitial thickening persists. No new focal lung consolidations identified. IMPRESSION: No change in the diffuse interstitial thickening which could be chronic. ACT 112: Negative or not required by law. Electronically signed by: Brayan Dwyer M.D. 10/31/2022 9:29 AM ECG Additional Comments: Sinus tachycardia Otherwise normal ECG When compared with ECG of 17-OCT-2022 06:09, No significant change was found. Code Status & VTE Plan Code Status Full code Supervising Physician Co-Signing Physician Notes Patient seen and examined, chart reviewed, case discussed with Janki Grier PA-C and I agree with the assessment and plan as above except as otherwise noted Labs and images reviewed Shira is an 82-year-old female with a past medical history of COPD, chronic respiratory failure, CKD, recent UTI, and CHF who presented with shortness of breath, weakness, and difficulty ambulating at home. She has recently been treated for UTI and completed a course of Levaquin. At last hospitalization with discharge 10/20 she was noted to be hypoxic in the setting of elevated BNP and dilated RV. Patient did have a two-step qualify for supplemental oxygen, and was hypoxic on this but due to clinical improvement and improvement in fluid status was discharged home without oxygen with 2-week follow-up to pulmonology. Fortunately patient has not been ambulating well, feels very weak and is unable to care for herself at home and presented to the hospital and was found to be hypoxic to 87% at rest. No acute findings on CXR, no evidence of ongoing pneumonia. Last PFTs reviewed from 2019, at that time patient had severely reduced diffusion capacity with FVC 112% predicted, FEV1 106% predicted with normal flow volume loops. 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 Patient is fatigued, clinically very volume depleted with dry cracked mucous membranes and tachycardia, and evidence of hemoconcentration on CBC although her kidney function is normal. No evidence of fluid overload or acute infectious pathology. No evidence of UTI on UA, some urinary symptoms/burning suspect due to high concentration. At bedside lungs are clear, mucous membranes are dry and cracked, heart is regular but tachycardic, lower extremities are without edema, patient moves all extremities equally and sensation to soft touch is intact with intact strength in hands and feet. Case discussed with case management. Recommend IV hydration, no additional antibiotics at this time. Due to being completed at a prior hospitalization two-step will have to be repeated to qualify for home oxygen, recommend patient have this at discharge. Patient would like to go to [facility] for rehab and strengthening, this is reasonable. Discussed with case management, due to patient's insurance will need PT/OT eval's and unlikely to be able to place to [facility] today, recommended for observation pending placement. PT/OT, repeat two-step, and CM consultations placed. PG Care Time/CCT Total # of Minutes Spent Total Time Spent with Patient: Total time spent is greater than 50% in coordination of care (as documented) at patient's floor/unit and/or counseling patient: Coding Level of Care Code 60068 INT INP/OBS CARE 2/55MIN Diagnoses Dehydration E86.0 Hypoxia R09.02 Anemia D64.9 COPD (chronic obstructive pulmonary disease) J44.9 Chronic constipation K59.09 CKD (chronic kidney disease) N18.9 Mixed incontinence N39.46 Hypothyroidism E03.9
[2022-10-31] MEDS ORDERED: LACTATED RINGER'S 500 ML IV ONE (11:17)
[2022-10-31] MEDS ORDERED: ONDANSETRON INJ 2 MG/ML 2 ML VIAL IV PRN (12:52)
[2022-10-31] MEDS ORDERED: ALUMINUM/MAGNESIUM SUSP 30 ML UDC PO PRN (12:52)
[2022-10-31] MEDS ORDERED: FLUTICASONE PROPIONATE NA SPR 16 GM BTL PRN (12:52)
[2022-10-31] MEDS ORDERED: ACETAMINOPHEN 325 MG TAB PO PRN (12:52)
[2022-10-31] MEDS: LACTATED RINGER'S 1,000 ML IV SCH ×2 (13:26→20:00)
[2022-10-31] MEDS ORDERED: LACTULOSE SYRUP 20 GM/30 ML UDC PO PRN (13:35)
[2022-10-31] MEDS: LACTOBACILLUS ACIDOPHILUS 1 GM PACK PO SCH ×2 (14:52→17:50)
[2022-10-31 16:40] LABS: D Dimer 1390 ug/L FEU (0-500)
[2022-10-31] MEDS ORDERED: VANCOMYCIN CONSULT ACTIVE PRN (17:10)
[2022-10-31] MEDS ORDERED: OPTIRAY 320 500ml IV ONE (17:16)
[2022-10-31] MEDS ORDERED: LACTATED RINGER'S 250 ML IV ONE (17:38)
--- NOTE | 2022-10-31 17:50 | CT Scan Report ---
CHEST CTA for PULMONARY ARTERIES CT DOSE: HISTORY: Shortness of breath. TECHNIQUE: Multiaxial CT images of the chest were performed following the intravenous administration of contrast to evaluate the pulmonary arteries. Maximal intensity projection images were also obtaine d. A dose lowering technique was utilized adhering to the principles of ALARA. COMPARISON STUDY: Chest CT 10/08/2022. FINDINGS: Suboptimal evaluation of the chest due to the motion artifact. There are trace bilateral pl eural effusions. No significant pericardial effusion. The heart is normal in size. Mild mediastinal a nd bilateral hilar lymphadenopathy persists. Dominant right paratracheal lymph node measures 15 mm. D ominant hilar lymph nodes measure up to 11 mm in short axis diameter. Normal caliber esophagus. No ac [place]agon fractures identified. Normal caliber thoracic aorta with no evidence for a dissection. Questional filling defects within the subsegmental pulmonary arteries is likely due to the respiratory motion. Otherwise, no definite filling defects within the remaining pulmonary arteries to suggest a pulmonary embolus. No pneumothorax. The central airways are patent. Diffuse interstitial thickening with perih ilar/upper lobe groundglass densities which has progressed in the interval. Patchy densities within t he base of the right lower lobe posteriorly are noted. Subcentimeter subpleural nodules within the ba se the right lower lobe measuring up to 6 mm persist. A 15 mm irregular/scarlike density within the r ight lower lobe on image 115 remains unchanged. IMPRESSION: 1. Interval progression of the interlobular septal thickening with perihilar groundglass airspace [place]. This can be seen in the setting of progressive pulmonary edema or an atypical pneumonia. 2. No change in 1.5 cm scarlike density within the right lower lobe. 3. Mild mediastinal and bilateral hilar lymphadenopathy. 4. No evidence for a pulmonary embolus with limitations as described above. 5. Trace bilateral pleural effusions. ACT 112: Negative or not required by law. Electronically signed by: Brayan Dwyer M.D. 10/31/2022 5:47 PM
--- NOTE | 2022-10-31 17:57 | CT Scan Report ---
ABDOMEN AND PELVIS CT WITH IV CONTRAST CT DOSE: 503.73 mGy.cm HISTORY: Fever. Sepsis. TECHNIQUE: Multiaxial CT images of the abdomen and pelvis were performed following the use of intrave nous contrast. A dose lowering technique was utilized adhering to the principles of ALARA. COMPARISON STUDY: Abdomen and pelvis CT 02/11/2017. FINDINGS: The lung bases will be reported on the same day chest CTA. Suboptimal evaluation due to the motion artifact. Dextroscoliosis of the lumbar spine. No acute fractures identified. There is a smal l hernia within the lower midline abdomen on image 340 containing a knuckle small bowel. The gallblad kelby is mildly distended. No gallbladder wall thickening. Normal caliber common bile duct. No hepatic or splenic masses. The adrenal glands, pancreas, and right kidney are unremarkable. Severely atrophic left kidney containing multiple calcifications. This is similar to the prior study. No hydronephrosi s. The main portal vein is patent. Normal caliber abdominal aorta. No retroperitoneal lymphadenopathy . No pelvic lymphadenopathy or pelvic free fluid. The bladder, uterus, and adnexa are unremarkable. M oderate well-formed stool within the colon. No bowel wall thickening or obstruction. Normal appendix. IMPRESSION: 1. Motion artifact. No bowel wall thickening or obstruction. 2. Normal appendix. 3. Moderate fecal retention. 4. Severe left renal atrophy, unchanged. 5. Mildly distended gallbladder. No gallbladder wall thickening. 6. Additional findings as described above. ACT 112: Negative or not required by law. Electronically signed by: Brayan Dwyer M.D. 10/31/2022 5:55 PM
[2022-10-31] MEDS ORDERED: VANCOMYCIN HCL 1,000 MG in SODIUM CHLORIDE 0.9% 500 ML IV ONE (18:00)
[2022-10-31] MEDS ORDERED: VANCOMYCIN HCL 1,250 MG in SODIUM CHLORIDE 0.9% 250 ML IV SCH (18:00)
[2022-10-31] MEDS ORDERED: AZITHROMYCIN 500 MG in DEXTROSE 5% 250 ML IV ONE (18:30)
[2022-10-31] MEDS: CEFEPIME 2,000 MG in SYRINGE 0 ML IV SCH (18:30)
[2022-10-31 21:17] LABS: Adenovirus PCR Not Detected (NotDetected); Bordetella parapertussis PCR Not Detected (NotDetected); Bordetella pertussis PCR Not Detected (NotDetected); Chlamydia pneumoniae PCR Not Detected (NotDetected); Coronavirus 229E PCR Not Detected (NotDetected); Coronavirus CoV-2 (COVID19)PCR Not Detected (NotDetected); Coronavirus HKU1 PCR Not Detected (NotDetected); Coronavirus NL63 PCR Not Detected (NotDetected); Coronavirus OC43PCR Not Detected (NotDetected); Human Metapneumovirus PCR Not Detected (NotDetected); Influenza A PCR Not Detected (NotDetected); Influenza B PCR Not Detected (NotDetected); Mycoplasma pneumoniae PCR Not Detected (NotDetected); Parainfluenza Virus 1 PCR Not Detected (NotDetected); Parainfluenza Virus 2 PCR Not Detected (NotDetected); Parainfluenza Virus 3 PCR Not Detected (NotDetected); Parainfluenza Virus 4 PCR Not Detected (NotDetected); Respiratory Syncytial VirusPCR Not Detected (NotDetected); Rhinovirus/Enterovirus PCR Not Detected (NotDetected)
[2022-11-01] MEDS: CEFEPIME 2,000 MG in SYRINGE 0 ML IV SCH ×2 (04:59→17:07)
[2022-11-01] MEDS: LACTATED RINGER'S 1,000 ML IV SCH ×2 (05:00→11:57)
[2022-11-01] MEDS: LEVOTHYROXINE SODIUM 50 MCG TABLET PO SCH (05:03)
--- NOTE | 2022-11-01 06:33 | Electrocardiogram Report ---
Test Reason : Blood Pressure : / mmHG Vent. Rate : 101 BPM Atrial Rate : 101 BPM P-R Int : 150 ms QRS Dur : 078 ms QT Int : 346 ms P-R-T Axes : 051 044 032 degrees QTc Int : 448 ms Sinus tachycardia Otherwise normal ECG When compared with ECG of 17-OCT-2022 06:09, No significant change was found Confirmed by Jorge Luis Adam ([id number]) on 11/01/2022 6:32:42 AM Referred By: REFERRED SELF Confirmed By:Jorge Luis Adam
--- NOTE | 2022-11-01 07:39 | Hospitalist Progress Note ---
Date of Service November 01, 2022 Assessment & Plan (1) Dehydration: Plan: Sepsis Possible pneumonia being treated with IV cefepime and IV steroids. Fever on 10/31 at 16:28 after first coming in without a fever. Patient also was tachycardic at at time with a BP of 97/60. -started on empiric antibiotics of cefepime and vancomycin. Has been afebrile with normal BP, with HR in the 80-100's. -Blood cultures ordered on 10/31 and are NGTD -Will continue with antibiotics at this time and continue to monitor symptoms of sepsis. - Pt started on Solu-Medrol 40mg IV Q24H Hypoxia: No acute cause for for hypoxia today but on last admission, patient had a 2 step test that indicated she need O2 at home, though was sent without any. Hypoxia thought to be likely multifactorial by pulm on last admission, given acute exacerbation of bronchiectasis volume overload at that time. 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 She had granulomatous nodules on biopsy from 2019 making necrobiotic nodule and bronchiectasis from rheumatoid arthritis highest on differential per their note. Patient does follow-up with pulmonology as an outpatient, will defer further work-up to them. - Pt had increasing respiratory requirements today and is currently sating at 95% on 5L Oxymask. - follow Dehydration - Suspect she has been overdiuresed since d/c on 10/20 when she was admitted for volume overload diuresed on IV Lasix and discharged on oral Lasix 40 mg daily. On last admission, 10/15 echo at that time had an error, initially reported EF 20%, however was amended to reflect EF > 70%, no wma, possible RV volume overload, borderline dilated RV with mildly reduces systolic function. -- Hold diuretics, Stop IV fluids on 11/01 and encourage PO intake. -- BMP shows electrolytes WNL without evidence of WANG. -- PT/OT evals, 2 step will be ordered prior to D/C COPD (chronic obstructive pulmonary disease): - On inhalers, - Started Solu-Medrol 40mg IV Q24H due to patient possibly having COPD exacerbation 2/2 pneumonia - Encouraged continued tobacco cessation. Anemia: - Hgb of 9.5 today with normal MCV 87.1 and elevated RDW of 48.1. - Continue iron supplementation. Likely a dilutional aspect considering IV fluid administration. IV fluids stopped on 11/01. - Trend CBC to monitor for improvement Chronic constipation: - Continue lactulose, miralax daily. CKD (chronic kidney disease): - Cr .63, baseline. 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 - Avoid nephrotoxins, renally dose meds as able. - Continue to monitor with daily labs. Hard of hearing -using hearing aid Mixed incontinence: - Continue Gemtesa. Hypothyroidism: - Continue levothyroxine. Plan Fluids: Holding Nutrition: vegetarian Code status: full code DVT ppx: SCDs ordered Dispo: med/surg Discussed with case management, though patient would likely be medically stable for discharge to a rehab/skilled facility this evening after IV fluids for rehydration, her insurance will not authorize her for same day placement. 2 step test will be ordered and PT/OT consults placed to assist with placement. Patient requesting [facility]. Highly complex case (2) Hypoxia: (3) Fever: (4) Elevated d-dimer: (5) Anemia: (6) COPD (chronic obstructive pulmonary disease): (7) Chronic constipation: (8) CKD (chronic kidney disease): (9) Mixed incontinence: Plan: - Continue Gemtesa. (10) Hypothyroidism: Plan: - Continue levothyroxine. Admission and Anticipated Discharge Date Admission Date: October 31, 2022 Supervising Physician Co-Signing Physician Notes Resident Physician Supervision Note: I independently interviewed and examined the patient and verified the [place] history and physical, reviewed labs and image studies and agree with resident findings and care plan. Subjective 82 y/o female with recent hospitalization and treatment for UTI and volume ov erload as well as past medical history of CKD secondary to adrenalectomy and nephrectomy for left sided-benign adrenal tumor presented to the ED with nausea, dizziness, and weakness. Upon presentation patient was hypoxic with 87% on room air, O2 via nasal cannula was given. Several hours after admission patient became tachycardic, hypotensive, and febrile. CTA was negative for PE and largely unremarkable. Bio fire, blood cultures bilateral US doppler ordered. Patient was treated with empiric antibiotics: cefepime, vancomycin. Previous admission 10 days ago showed patient was treated with levaquin and 40 mg lasix daily. Today, patient requires 5L O2 via Oxymask. Pulse ox showed O2 sats in mid 80s when oxymask was off when we entered the room. Patient doesn't feel like her respiratory issues are a big concern. Patient indicated her motivation to continue using incentive spirometer every hour she is awake in the hospital while keeping her Oxymask as much as possible. Otherwise, patient has no acute concerns. She denies any fever, chills, heart palpations, or SOB at this time. Review of Systems Constitutional: no weight loss Respiratory: Mild shortness of breath. Cardiovascular: no chest pain, no dyspnea and no paroxysmal nocturnal dyspnea Musculoskeletal: + muscle weakness Physical Exam Constitutional: WD/WN, vitals as above Respiratory: no respiratory distress and does not use accessory muscles Auscultation: lungs clear to auscultation bilaterally Cardiovascular: Normal rate and rhythm with no murmurs, rubs, clicks, or gallops. Gastrointestinal (Abdomen): Quiet bowel sounds, no tenderness to palpation in all four quadrants. Skin: no rashes, warm and dry Psychiatric: A+Ox3, euthymic affect Results & Data Results & Data ([facility]) Vital Signs (Past 12 Hours) Vital Signs Temp Pulse Resp BP Pulse Ox O2 Del Method O2 Flow Rate 11/01/22 03:19 36.8 C 101 H 18 108/65 93 Oxymask 4 10/31/22 23:44 36.8 C 68 18 135/75 91 Nasal Cannula 4 10/31/22 20:32 36.9 C 95 H 18 97/63 L 95 Nasal Cannula 4 Resident Activity Tracking Resident Involvement: Resident Care Provided Care Provided: Adult Hospital Medicine
[2022-11-01 07:51] LABS: Toxic Vacuolation 3+
[2022-11-01 08:15] LABS: Hematocrit (blood only) 29.1 % (34.1-44.9); Hemoglobin 9.5 g/dl (12.0-16.0); Mean Corpuscular Hemoglobin 28.4 pg (25.0-34.0); Mean Corpuscular Hgb Conc 32.6 g/dL (32.0-36.0); Mean Corpuscular Volume 87.1 fL (80.0-100.0); Mean Platelet Volume 10.7 fL (9.4-12.3); Platelet Count 196 K/uL (130-400); RDW Coefficient of Variation 15.1 % (11.5-14.5); RDW Standard Deviation 48.1 fL (36.4-46.3); Red Blood Count 3.34 M/uL (3.93-5.22); White Blood Count 16.29 K/ul (4.8-10.8)
[2022-11-01] MEDS: LORATADINE 10 MG TAB PO SCH (08:38)
[2022-11-01] MEDS: FERROUS SULFATE 325 MG TAB PO SCH (08:38)
[2022-11-01] MEDS: PARoxetine HCL 20 MG TAB PO SCH (08:38)
[2022-11-01] MEDS: ASPIRIN 81 MG ECTAB PO SCH (08:38)
[2022-11-01] MEDS: POLYETHYLENE (MIRALAX) 17 GM PACK PO SCH (08:38)
[2022-11-01] MEDS: ASCORBIC ACID 500 MG TAB PO SCH (08:38)
[2022-11-01] MEDS: LACTOBACILLUS ACIDOPHILUS 1 GM PACK PO SCH ×3 (08:38→17:05)
[2022-11-01] MEDS: CHOLECALCIFEROL 1,000 UNITS 25 MCG TAB PO SCH (08:38)
[2022-11-01 08:45] LABS: BUN Creatinine Ratio 20.6 (10-20); Calcium 7.9 mg/dl (8.5-10.1); Creatinine Clr Calc Pharmacy 57.9 ml/min; Est GFR (African American) 97.5 ml/min; Est GFR (Non-African American) 84.1 ml/min; Potassium 3.3 mmol/L (3.5-5.1)
--- NOTE | 2022-11-01 08:50 | Ultrasound Report ---
BILATERAL LOWER EXTREMITY VENOUS DOPPLER CLINICAL HISTORY: hypoxia and tachycardia, unknown etiology COMPARISON STUDY: No previous studies for comparison. TECHNIQUE: Sonography of the deep venous system of the bilateral lower extremities was performed. Co mpression and augmentation were evaluated. FINDINGS: The bilateral common femoral, superficial femoral and popliteal veins were compressible. A ugmentation was normal. Flow was shown within the deep calf vessels. IMPRESSION: No evidence of deep venous thrombus within the bilateral lower extremities. ACT 112: Negative or not required by law. Electronically signed by: Mike Kang M.D. 11/01/2022 8:48 AM
[2022-11-01] MEDS ORDERED: [UNRECOGNIZED DRUG - OTHER] PO SCH (09:00)
[2022-11-01] MEDS: methylPREDNISolone 40 MG in SYRINGE 0 ML IV SCH (12:54)
[2022-11-01] MEDS ORDERED: AZITHROMYCIN 500 MG in DEXTROSE 5% 250 ML IV SCH (18:00)
[2022-11-01] MEDS ORDERED: VANCOMYCIN HCL 1,000 MG in SODIUM CHLORIDE 0.9% 250 ML IV SCH (18:00)
[2022-11-02] MEDS: LEVOTHYROXINE SODIUM 50 MCG TABLET PO SCH (06:21)
[2022-11-02] MEDS: CEFEPIME 2,000 MG in SYRINGE 0 ML IV SCH (06:22)
--- NOTE | 2022-11-02 06:56 | Hospitalist Progress Note ---
Date of Service November 02, 2022 Assessment & Plan (1) Dehydration: Plan: Sepsis Possible pneumonia being treated with IV cefepime and IV steroids. Fever on 10/31 at 16:28 after first coming in without a fever. Patient also was tachycardic at at time with a BP of 97/60. -started on empiric antibiotics of cefepime and vancomycin. Has been afebrile with normal BP, with HR in the 80-100's. -Blood cultures ordered on 10/31 and are NGTD -Will continue with antibiotics at this time and continue to monitor symptoms of sepsis. - Pt started on Solu-Medrol 40mg IV Q24H Hypoxia: No acute cause for for hypoxia today but on last admission, patient had a 2 step test that indicated she need O2 at home, though was sent without any. Hypoxia thought to be likely multifactorial by pulm on last admission, given acute exacerbation of bronchiectasis volume overload at that time. 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 She had granulomatous nodules on biopsy from 2019 making necrobiotic nodule and bronchiectasis from rheumatoid arthritis highest on differential per their note. Patient does follow-up with pulmonology as an outpatient, will defer further work-up to them. - Pt had increasing respiratory requirements today and is currently sating at 95% on 5L Oxymask. - follow Dehydration - Suspect she has been overdiuresed since d/c on 10/20 when she was admitted for volume overload diuresed on IV Lasix and discharged on oral Lasix 40 mg daily. On last admission, 10/15 echo at that time had an error, initially reported EF 20%, however was amended to reflect EF > 70%, no wma, possible RV volume overload, borderline dilated RV with mildly reduces systolic function. -- Hold diuretics, Stop IV fluids on 11/01 and encourage PO intake. -- BMP shows electrolytes WNL without evidence of WANG. -- PT/OT evals, 2 step will be ordered prior to D/C COPD (chronic obstructive pulmonary disease): - On inhalers, - Started Solu-Medrol 40mg IV Q24H due to patient possibly having COPD exacerbation 2/2 pneumonia - Encouraged continued tobacco cessation. Anemia: - Hgb of 9.5 today with normal MCV 87.1 and elevated RDW of 48.1. - Continue iron supplementation. Likely a dilutional aspect considering IV fluid administration. IV fluids stopped on 11/01. - Trend CBC to monitor for improvement Chronic constipation: - Continue lactulose, miralax daily. CKD (chronic kidney disease): - Cr .63, baseline. 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 - Avoid nephrotoxins, renally dose meds as able. - Continue to monitor with daily labs. Hard of hearing -using hearing aid Mixed incontinence: - Continue Gemtesa. Hypothyroidism: - Continue levothyroxine. Plan Fluids: Holding Nutrition: vegetarian Code status: full code DVT ppx: SCDs ordered Dispo: med/surg Discussed with case management, though patient would likely be medically stable for discharge to a rehab/skilled facility this evening after IV fluids for rehydration, her insurance will not authorize her for same day placement. 2 step test will be ordered and PT/OT consults placed to assist with placement. Patient requesting [facility]. Highly complex case (2) Hypoxia: (3) Fever: (4) Elevated d-dimer: (5) Anemia: (6) COPD (chronic obstructive pulmonary disease): (7) Chronic constipation: (8) CKD (chronic kidney disease): (9) Mixed incontinence: Plan: - Continue Gemtesa. (10) Hypothyroidism: Plan: - Continue levothyroxine. Admission and Anticipated Discharge Date Admission Date: October 31, 2022 Results & Data Results & Data ([facility]) Vital Signs (Past 12 Hours) Vital Signs Temp Pulse Pulse Resp BP Pulse Ox O2 Del Method 11/02/22 04:19 36.6 C 72 18 93/52 L 98 Oxymask 11/02/22 03:19 74 11/02/22 00:34 36.8 C 73 18 95/55 L 93 Oxymask 11/02/22 00:10 Oxymask 11/01/22 19:48 36.8 C 76 18 94/61 L 94 Oxymask O2 Flow Rate 11/02/22 04:19 6 11/02/22 03:19 11/02/22 00:34 6 11/02/22 00:10 3 11/01/22 19:48 6
[2022-11-02 07:59] LABS: Basophils # (auto) 0.01 K/uL (0-0.2); Basophils % (auto) 0.1 %; Eosinophils # (auto) 0.01 K/uL (0-0.50); Eosinophils % (auto) 0.1 %; Hematocrit (blood only) 31.2 % (34.1-44.9); Hemoglobin 9.9 g/dl (12.0-16.0); Immature Granulocytes # (auto) 0.07 K/uL (0.00-0.02); Immature Granulocytes % (auto) 0.5 %; Lymphocytes # (auto) 0.85 K/uL (1.2-3.4); Lymphocytes % (auto) 6.4 %; Mean Corpuscular Hemoglobin 28.1 pg (25.0-34.0); Mean Corpuscular Hgb Conc 31.7 g/dL (32.0-36.0); Mean Corpuscular Volume 88.6 fL (80.0-100.0); Mean Platelet Volume 10.9 fL (9.4-12.3); Monocytes # (auto) 0.75 K/uL (0.24-0.82); Monocytes % (auto) 5.7 %; Neutrophils # (auto) 11.53 K/uL (1.4-6.5); Neutrophils % (auto) 87.2 %; Platelet Count 233 K/uL (130-400); RDW Coefficient of Variation 15.6 % (11.5-14.5); RDW Standard Deviation 50.5 fL (36.4-46.3); Red Blood Count 3.52 M/uL (3.93-5.22); White Blood Count 13.22 K/ul (4.8-10.8)
[2022-11-02] MEDS: ASPIRIN 81 MG ECTAB PO SCH (08:27)
[2022-11-02] MEDS: LORATADINE 10 MG TAB PO SCH (08:27)
[2022-11-02] MEDS: PARoxetine HCL 20 MG TAB PO SCH (08:27)
[2022-11-02] MEDS: CHOLECALCIFEROL 1,000 UNITS 25 MCG TAB PO SCH (08:27)
[2022-11-02] MEDS: FERROUS SULFATE 325 MG TAB PO SCH (08:27)
[2022-11-02] MEDS: LACTOBACILLUS ACIDOPHILUS 1 GM PACK PO SCH ×2 (08:27→11:13)
[2022-11-02] MEDS: ASCORBIC ACID 500 MG TAB PO SCH (08:28)
[2022-11-02 08:32] LABS: Calcium 8.4 mg/dl (8.5-10.1); Creatinine Clr Calc Pharmacy 59.8 ml/min; Est GFR (African American) 98.5 ml/min; Potassium 3.5 mmol/L (3.5-5.1)
[2022-11-02] MEDS: POLYETHYLENE (MIRALAX) 17 GM PACK PO SCH (08:32)
[2022-11-02] MEDS: methylPREDNISolone 40 MG in SYRINGE 0 ML IV SCH (11:12)
[2022-11-02] MEDS ORDERED: VANCOMYCIN HCL 1,250 MG in SODIUM CHLORIDE 0.9% 250 ML IV SCH (12:00)
--- NOTE | 2022-11-02 12:48 | Discharge Summary ---
Date of Service November 02, 2022 Admission HPI Per Admitting Provider Shira Lopez is an 82 y/o male with past medical history of COPD, CKD, hypothyroidism, anxiety, and iron deficiency anemia who is presenting today with complaints of weakness, nausea, and feeling very dehydrated. Patient was admitted 10/15- for volume overload suspected to be due to right-sided heart failure. She was discharged with a new prescription for Lasix 40 mg daily, has been taking this regularly continues to feel weak, dizzy, nauseous and very very dry. She did not have any falls or syncopal episodes. No fever chills, change to chronic cough or shortness of breath. No abdominal pain, has been nauseous and vomited twice. She is concerned she may have a UTI, also requesting placement as she feels she cannot take care of her self at home anymore due to this weakness. On presentation, she is mildly tachycardic with HR 101, SPO2 87% on room air. Labs largely unremarkable, she is WBC 11, the patient is very very dry appearing dehydrated, suspect is hemoconcentrated. Renal function is at baseline, no electrolyte abnormalities. BNP is 68, troponin 5.1. Urine without evidence of infection. Negative for COVID/flu/RSV. CXR showed no change in device interstitial thickening which could be chronic. Admission Exam Per Admitting Provider General: awake, alert, no apparent distress, on 3 L NC Head: Normocephalic, atraumatic ENT: PERRL, EOMI, no pharyngeal exudate, mucous membranes very dry Chest: Clear to auscultation, on room air, no adventitious breath sounds Cardiac: Regular rate and rhythm, no murmur, no JVD, normal peripheral pulses, good capillary refill Abdominal: NABS x 4 quadrants, soft, nontender to palpation, no rebound, guarding or tenderness Extremities: Normal inspection, no peripheral edema or erythema, calfs nontender to palpation Psych: Normal mood and affect Neuro: AAO x 3, strength intact bilaterally and rated 5/5, no motor deficits, speech is clear, no peripheral sensory deficits Skin: no rash or erythema Principal Diagnosis Sepsis, hypoxia, dehydration, COPD Discharge Exam Constitutional: well-appearing, no acute distress HEENT: NCAT, no conjunctival injection CV: regular rhythm, no murmur appreciated, extremities well-perfused, no LE edema Resp: CTABL, no wheezes/rales/rhonchi appreciated, no increased work of breathing GI: soft, nondistended, nontender, BS normoactive MSK: no gross deformities appreciated Skin: warm, dry, no rash appreciated Neuro: alert, oriented, no focal neurologic deficit appreciated Discharge Data Allergies Allergy/AdvReac Type Severity Reaction Status Date / Time No Known Drug Allergies Allergy Verified 08/23/22 13:52 Consultations 10/31/22 10:39 ED Decision to Admit Stat Ordered Studies 10/31/22 16:45 CT angio chest PE protocol Stat 10/31/22 17:06 CT Abd and Pelvis [CT abd pelvis IV con only] Urgent 10/31/22 17:59 US venous doppler LE Urgent Hospital Course (1) Dehydration: (2) Hypoxia: (3) Fever: (4) Elevated d-dimer: (5) Anemia: (6) COPD (chronic obstructive pulmonary disease): (7) Chronic constipation: (8) CKD (chronic kidney disease): (9) Mixed incontinence: (10) Hypothyroidism: Plan Sepsis with probable pneumonia treated with IV cefepime and vancomycin as well as IV Solu-Medrol. - Fever, tachycardia and hypotension - Started on empiric antibiotics of cefepime and vancomycin. - Blood cultures ordered on 10/31 and are NGTD at time of discharge. - Transitioned to Augmentin 875 mg/125 mg PO every 12 hour + Azithromycin 500 mg PO on the first day, then 250 mg daily for 5 days total at time of discharge. Hypoxia: - Hypoxia likely multifactorial by pulm on last admission, given acute exacerbation of bronchiectasis volume overload at that time. 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 She had granulomatous nodules on biopsy from 2019 making necrobiotic nodule and bronchiectasis from rheumatoid arthritis highest on differential per their note. Patient does follow-up with pulmonology as an outpatient, will defer further work-up to them. - Echo with mildly reduced right ventricle function - Pt saturating at 94% on 3L nasal canal at the time of discharge - 2 Step indicated need for home oxygen 2L at rest and 3L with ambulation. - Home Oxygen arranged COPD with exacerbation Bronchiectasis - Asymptomatic copd at baseline - PFT 2019 with normal spirometry. Not On inhalers - Started Solu-Medrol 40mg IV Q24H - Transitioning Solumedrol to Prednisone 40 mg PO for 3 days on discharge. - Encouraged continued tobacco cessation. - Bronchiectasis work up per pulmonology Dehydration - Volume depleted on admission from possible overdiuresis during last admit for chf exacerbation. - BMP shows electrolytes WNL without evidence of WANG. - Holding oral Lasix 40 mg due to dehydration on presentation. Reassessment of fluid status by PCP on an outpatient basis to assess need to restart medication. Anemia: - H/h stable - Continue iron supplementation. - Repeat CBC per PCP during outpatient follow up in one week Chronic constipation: - Continue lactulose, miralax daily. CKD (chronic kidney disease): - History of left kidney atrophy, nephrectomy 2// large benign adrenal tumor. - Cr .63, baseline. Hard of hearing -Continue using hearing aid Mixed incontinence: - Continue Gemtesa. Hypothyroidism: - Continue levothyroxine. - PT/OT showed adequate strength and ambulation capacity for discharge Total Time Total Time Spent Total Time Spent (In Minutes): 30 mins Discharge Plan Discharge Items Patient Disposition: Home - Home Health Services Reason For Visit: WEAKNESS, DEHYDRATION, CHRONIC HYPOXIA Discharge Diagnosis: Pneumonia Condition on Discharge: Fair Activity: Per Instructions section Non-emergency contact: Primary Care Provider Call non-emergency contact if: you have any medication questions, your pain is concerning for you and your temperature is above 101.5 Follow-up/Referrals: Sam Hays MD [Primary Care Provider] - 11/10/22 1:45 pm (THIS APPOINTMENT WILL BE WITH DR MENA.) Diet: Regular Addtl Attending Provider Instructions: You were admitted to the hospital for . You were treated with antibiotics, Solu- Medrol, and oxygen. A discharge summary will be sent to your primary care physician to ensure continuity of care. Please bring this discharge summary with you to your next office appointment so that your provider can review it at that time. Follow-up appointments: * Make a follow-up appointment with your PCP within the next week. It is very important that you follow up with them shortly after discharge from the hospital. * Keep all your follow-up appointments as already scheduled. If you cannot make an appointment, notify your provider. Medications: Your medication list has been reviewed and reconciled upon discharge to ensure accuracy and continuity of care. An updated list of all your medications is included with your hospital discharge paperwork. Please review this list close ly, and make note of any changes. * We sent you home with oxygen 2L at rest and 3L with ambulation. * We sent a new medication called Augmentin to your pharmacy. Take Augmentin (875mg/125mg) one tab twice a day for 5 days. * We sent a new medication called Azithromycin to your pharmacy. Take Azithromycin (500mg) one tab once a day for one day. Then Azithromycin (250mg) one tab once a day for 4 days. * We sent a new medication called Prednisone to your pharmacy. Take Prednisone (20mg) two tabs once a day for 3 days. * Stop your home Lasix. * If you have any issues filling these prescriptions, please call [phone] and ask to leave a message for Dr. Pena. * Take your medications as instructed; do not skip a dose of your medicines. Make sure all of your doctors know every medicine you are taking (including [id number] medicines, vitamins, and supplements). Call your primary care provider before taking any new medicines (including over- the-counter medicines, vitamins, and supplements), because some of these may interact with your current medications, or may make your symptoms worse. Tell your primary care provider if you cannot afford your medications. CONTACT YOUR PRIMARY CARE PROVIDER if you experience any of the following: * Worsening of symptoms * Fever, chills, or fatigue * Difficulty following your treatment plan, or difficulty taking medications CALL 911 OR GO TO THE EMERGENCY DEPARTMENT if you experience any of the following: * Sudden, severe abdominal pain or nausea/vomiting * Severe chest pain, or chest pain that radiates (moves) to your jaw or arm * Sudden, severe shortness of breath or difficulty breathing Thank you for allowing us to participate in your care. Pending Studies at Discharge: No Stand-Alone Forms: My [facility] [place], Smoking Cessation Medications and DC Order Prescriptions: New amoxicillin-pot clavulanate 875-125 mg tablet 1 tab PO BID 5 Days Qty: 10 0RF azithromycin 250 mg tablet See Rx Instructions .ROUTE .COMPLEX Qty: 6 0RF Rx Instructions: For 250 mg dose pack: take 500 mg today (day 1), then 250 mg for 4 days (days 2-5) prednisone 20 mg tablet 40 mg PO DAILY 3 Days Qty: 6 0RF Continued fluticasone propionate 50 mcg/actuation spray,suspension 2 spray INTNAS DAILY PRN (Reason: Nasal Congestion) Qty: 15.8 6RF Rx Instructions: administer into each nostril EVERY MORNING cholecalciferol (vitamin D3) 25 mcg (1,000 unit) capsule 25 mcg PO DAILY loratadine [Allergy Relief (loratadine)] 10 mg tablet 10 mg PO DAILY Gemtesa 75 mg tablet 75 mg PO DAILY Qty: 90 1RF levothyroxine 50 mcg tablet 50 mcg PO QAM paroxetine HCl [Paxil] 40 mg tablet PO DAILY Lactobacillus acidoph-L.bulgar [Floranex] 100 million cell Granules In Packet 1 g PO TIDM Qty: 30 0RF polyethylene glycol 3350 [Miralax] 17 gram Powder In Packet 17 g PO DAILY Qty: 30 0RF aspirin 81 mg Tablet,Delayed Release (Dr/Ec) 81 mg PO QAM Qty: 30 0RF William-Sequels (iron-vit c) 200 mg (65 mg iron)-25 mg tablet extended release 1 tab PO DAILY Qty: 90 0RF lactulose 10 gram/15 mL solution 20 g PO QID PRN (Reason: constipation) Qty: 237 0RF Discontinued furosemide 40 mg Tablet 40 mg PO QAM Qty: 30 0RF levofloxacin 750 mg Tablet 750 mg PO DAILY@1100 Qty: 7 0RF Discharge Orders: Discharge Order (Routine); Ordered 11/02/22 Ordered By: Keo Sims/Other Patient Handouts: Dehydration, Fall Prevention Assessing Risk, Understanding Bronchiectasis Admission Data Admit Date/Time: 10/31/22 11:17 Attending Provider: Edna Peacock Admit Provider: Deno Parisi Primary Care Provider: Sam Hays Other Providers: [facility] ; [facility] ; [place] ; Deon Parisi Other Interventions: Discharge Summary Assessment (RN) Last Done: 11/02/22 13:55 Supervising Physician Co-Signing Physician Notes Resident Physician Supervision Note: I independently interviewed and examined the patient and verified the [place] history and physical, reviewed labs and image studies and agree with resident findings and care plan. Resident Activity Tracking Resident Involvement: Resident Care Provided Care Provided: Adult Hospital Medicine
== END 2022-11-02 14:28 | disposition home health service (06) | DRG 871 ==
LOC: ED 08:57 → 3W 11:17 → SUATTDRO 11:17 → 3W 12:23 → 2W 15:31

== ENCOUNTER 2024-06-26 12:16 | Inpatient (IN) ==
[2024-06-26 13:01] LABS: Basophils # (auto) 0.03 K/uL (0.00-0.20); Basophils % (auto) 0.4 %; Eosinophils # (auto) 0.07 K/uL (0.00-0.50); Eosinophils % (auto) 0.8 %; Hematocrit (blood only) 41.7 % (37.0-47.0); Hemoglobin 13.4 g/dl (12.0-16.0); Immature Granulocytes # (auto) 0.03 K/uL (0.01-0.20); Immature Granulocytes % (auto) 0.4 %; Lymphocytes # (auto) 0.79 K/uL (1.20-3.40); Lymphocytes % (auto) 9.5 %; Mean Corpuscular Hemoglobin 28.9 pg (25.0-34.0); Mean Corpuscular Hgb Conc 32.1 g/dL (32.0-36.0); Mean Corpuscular Volume 90.1 fL (80.0-100.0); Mean Platelet Volume 9.6 fL (9.4-12.4); Monocytes # (auto) 0.57 K/uL (0.11-0.59); Monocytes % (auto) 6.9 %; Neutrophils # (auto) 6.83 K/uL (1.40-6.50); Platelet Count 342 K/uL (130-400); RDW Coefficient of Variation 12.9 % (11.5-14.5); RDW Standard Deviation 42.2 fL (36.4-46.3); Red Blood Count 4.63 M/uL (4.20-5.40); White Blood Count 8.32 K/ul (4.8-10.8)
[2024-06-26 13:22] LABS: Alanine Aminotransferase 14 U/L (7-52); Albumin Globulin Ratio 1.2 (0.9-2); Albumin Level 4.5 gm/dl (3.4-5.0); Alkaline Phosphatase 97 U/L (34-104); Anion Gap 9 (3-11); Aspartate Aminotransferase 21 U/L (13-39); BUN Creatinine Ratio 16.7 (10-20); Bilirubin,Total 0.6 mg/dl (0.2-1.0); Blood Urea Nitrogen 14 mg/dl (6-23); Calcium 9.8 mg/dl (8.6-10.3); Carbon Dioxide 26 mmol/L (21-32); Chloride 100 mmol/L (98-107); Est GFR (African American) 74.5 ml/min; Est GFR (Non-African American) 64.3 ml/min; Globulin 3.8 gm/dl (2.5-4.0); Glucose 96 mg/dl (70-99(Fasting)); Potassium 3.8 mmol/L (3.5-5.1); Sodium 135 mmol/L (136-145); Total Protein 8.3 gm/dl (6.0-8.3)
--- NOTE | 2024-06-26 13:44 | History & Physical Report ---
Date of Service June 26, 2024 Assessment & Plan (1) Low back pain: Plan: Admit to med/surge Currently stable, nontoxic-appearing, and without neurologic symptoms Presented to the ED via EMS for the second time in 48 hours for severe low lumbar spine pain preventing her from safely engaging in her ADLs Patient was seen in the [facility] ED on 06/24/2024 for the same complaint, CT of the lumbar spine at that time showed moderate to severe facet arthrosis and degenerative disc disease within the lumbar spine. Severe central canal stenosis at L4-L5 with multilevel neuroforaminal stenosis. Pain has been uncontrolled with Tylenol at this time Based on the patient's description of pain we will try 5 mg p.o. Flexeril now and monitor for improvement Will also continue with scheduled Tylenol, lidocaine patch, and heat PT/OT consults have been placed. Patient will likely need at least rehab on discharge Heart healthy diet Bilateral SCDs for DVT prophylaxis Fall/aspiration precautions AM CBC, CMP (2) Failure to thrive in adult: Plan: See low back pain (3) Hypothyroidism: Plan: Continue levothyroxine (4) Depression: Plan: Continue paroxetine Plan Patient was discussed with Dr. Parisi at the time of the admission History of Present Illness Chief Complaint: Back pain, ambulatory dysfunction Primary Care Provider: DO Shira Ruiz is an 84-year-old female with a past medical history significant for hypothyroidism, anxiety, and CKD who presented back to the [facility] for the second time in 48 hours for ongoing uncontrolled low back pain and failure to thrive at home. Patient was initially seen in our emergency department on 06/24/2024 with the same pain. CT of the lumbar spine noted moderate to severe facet arthrosis and degenerative disc disease within the lumbar space. Suspected severe central canal stenosis at L4-L5. Multilevel neuroforaminal stenosis but was negative for acute trauma. The patient was reportedly offered admission on 06/24/2024 for pain control and PT/OT but declined. Patient was given 4 mg IV morphine in the ED on 06/24/2024 with improvement of her symptoms and appeared to have been recommended to use Tylenol for pain at home.. She reportedly called EMS again today as she could not safely take care of herself at home Due to the severity of her back pain. Patient remained stable in the ED today. Labs including CBC and CMP were unremarkable. Repeat imaging was not obtained as the patient's symptoms have been unchanged since being seen on 06/24/2024. We were asked to admit the patient for ongoing symptom control, evaluation by PT/OT, and likely placement at the time of discharge. Patient was sitting in bed in no acute distress at time of exam, patient is incredibly hard of hearing at baseline. Confirms that pain control has been unsuccessful at home with using Tylenol. Pain was so severe today that she was unable to safely get out of bed to make herself breakfast. Again denies any changes in the back pain which starts in the low back and radiates down the bilateral lower extremities. When asked to describe pain she states "feels like a cramping almost like very bad menstrual cramps". Denies new numbness/tingling, saddle anesthesia, loss of bowel or bladder function, or weakness in the lower extremities. No recent falls or trauma. We discussed CODE STATUS, she wishes to be full code at this time for her daughter to make medical decisions for her if she cannot make them herself. Please refer to Dr. Parisi's attestation for any changes to the treatment plan Allergies Allergy/AdvReac Type Severity Reaction Status Date / Time alendronate sodium AdvReac Severe Difficulty Verified 06/24/24 20:05 [From Fosamax] Swallowing Home Medications Medication Instructions Recorded Confirmed Type paroxetine HCl 40 mg tablet (Paxil) 40 mg PO HS 10/16/22 06/26/24 History spironolactone 25 mg tablet 25 mg PO UD 06/08/23 06/26/24 History levothyroxine 50 mcg tablet 50 mcg PO QAM 90 days #90 tabs 10/31/23 06/26/24 Rx mirabegron 25 mg tablet,extended 25 mg PO HS 04/13/24 06/26/24 History release 24 hr (Myrbetriq) loratadine 10 mg tablet (Claritin) 10 mg PO HS 05/22/24 06/26/24 History cholecalciferol (vitamin D3) 125 125 mcg PO HS 06/24/24 06/26/24 History mcg (5,000 unit) capsule Past Med/Surg History Problem List (Updated 06/26/24 @ 14:19 by Codey De La Fuente PA-C) Failure to thrive in adult Central stenosis of spinal canal (Acute) Low back pain (Acute) Seasonal allergic rhinitis Incomplete emptying of bladder Hypoxemia Elevated d-dimer Fever Dehydration Anemia Constipation (Acute) Cerumen impaction Chronic left lower quadrant pain Chronic constipation Fall as cause of accidental injury at home as place of occurrence Closed fracture of left condylar process of mandible with routine healing Impacted cerumen of both ears Sensorineural hearing loss (SNHL) of both ears Pulmonary nodule Abnormal CT scan of lung Abdominal discomfort, generalized (Acute) Abnormal electrocardiogram (Acute) Anxiety (Acute) Chronic rhinitis (Acute) Cough, persistent (Acute) Dermatitis (Acute) Dyslipidemia (Acute) Gait instability (Acute) Gross hematuria (Acute) Hearing loss (Acute) Hematuria (Acute) Microscopic hematuria (Acute) Osteopenia after menopause (Acute) Ovarian cyst (Acute) Pre-operative cardiovascular examination (Acute) Skin tear of right forearm without complication (Acute) Tinnitus (Acute) Urge incontinence of urine (Acute) Urinary frequency (Acute) Urinary urgency (Acute) Vertigo (Acute) Vision problem (Acute) Cerumen impaction Mixed hearing loss Bilateral. Most recent evaluation (06/10), stable since 01/06. Managed with hearing aides Hypothyroidism (Chronic) Long standing, managed with levothyroxine 50mcg daily. TSH wnl (10/10). Osteopenia (Chronic) DEXA (04/11) minimum T score -1.9. Depression (Chronic) Manageed with fluoxetine 80mg daily Mixed incontinence (Chronic) Unsuccessful trial of tolterodine and oxybutynin. Trial of mirabegron 25mg daily for her urinary symptoms. Followed by urology. 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 Medical History Bronchiectasis with (acute) exacerbation Hypoxia UTI (urinary tract infection) Surgical History H/O total adrenalectomy History of ear surgery STAPEDECTOMY History of tonsillectomy and adenoidectomy Family History Mother Diabetes Other Family history non-contributory Social History Smoking Status: Former smoker Hx Alcohol Use: Yes Alcohol type: wine Hx Substance Use: No Preferred Language: Turkmen Communication Ability: Effective Communication Ability Comment: hard of hearing Visual Impairment: Limited Dental Service Chief Required: No Beliefs That Will Affect Care: None Current Living Situation: Alone Feels Safe at Home: Yes Childhood Exposure to Second-Hand Smoke: No caffeine: Yes (trying to limit as best she can) Seatbelt Use: always Assistive Devices: Glasses Physical Exam Physical Exam: Physical Exam: General: In no acute distress, stated age, well-nourished, good hygiene HEENT: Normocephalic, atraumatic, no scleral icterus, pupils around round, symmetrical, and reactive to light, moist mucus membranes, trachea midline, no thyromegaly Chest/Pulm: No respiratory distress, symmetrical chest expansion, clear breath sounds throughout Cardiac: RRR, no murmurs noted Abdomen: Negative for ascites and bruising, normoactive bowel sounds, soft, non-tender to palpation throughout Musculoskeletal: Patient with pain to palpation on the bilateral lower lumbar paraspinal muscles no step-offs or crepitus noted on palpation over the central lumbar spine. Patient with symmetrical strength in the bilateral lower extremities, straight leg raise of the bilateral lower extremities exacerbates pain Extremities: Radial, dorsalis pedis, and posterior tibial pulses are intact and symmetrical, no edema noted in the BL LE's Skin: Warm, dry, no rashes , lesions, or scars noted Neuro: Alert and oriented to person, place, month, year, and president, no focal defects, CN II-XII tested, Patient is severely hard of hearing (Left ear slightly better than the right), Intact sensation in the bilateral lower extremities Psych: No acute distress, calm and cooperative during the exam Results & Data Results & Data Vital Signs (Past 12 Hours) Vital Signs Temp Pulse Resp BP Pulse Ox O2 Del Method 06/26/24 12:23 36.5 C 90 20 140/99 94 Room Air Laboratory Results Abnormal lab results 06/26/24 Range/Units 12:33 Neut # (Auto) 6.83 H (1.40-6.50) K/uL Lymph # (Auto) 0.79 L (1.20-3.40) K/uL Sodium 135 L (136-145) mmol/L Code Status & VTE Plan Code Status Full code VTE Prophylaxis Plan VTE Prophylaxis will be ordered: Yes Supervising Physician Co-Signing Physician Notes Patient seen and examined, chart reviewed, case discussed with Codey De La Fuente PA-C and I agree with the assessment and plan as above except as otherwise noted Labs and images reviewed 84-year-old female extremely hard of hearing who presents for intractable low back pain and inability to ambulate at home. Patient has known severe control canal stenosis L4-L5 with multilevel neuroforaminal stenosis. No acute loss of strength, no acute sensory loss at time of bedside assessment. Does have a bad cramping pain limiting her ability to ambulate and self-care. Due to her pain she has not been able to cook for herself. She does feel that her pain is improved but not resolved after initial pain control in the ER. Notes her pain started a few days after she was transferring water jugs. There was no snap/pop or sudden increase in pain, pain came on gradually several days later admitted for pain control, PT/OT, and anticipated placement needs. Agree with multimodal pain control as noted. PG Care Time/CCT Total # of Minutes Spent Total Time Spent with Patient: Total time spent is greater than 50% in coordination of care (as documented) at patient's floor/unit and/or counseling patient: Coding [place] [address] INT INP/OBS CARE 2/55MIN Patient Type Established Medical Decision Making Moderate Complexity Diagnoses Low back pain M54.50 Failure to thrive in adult R62.7 Hypothyroidism E03.9 Depression F32.9
--- NOTE | 2024-06-26 14:09 | Emergency Department Note ---
Impression & Plan Lower back pain, Spinal stenosis, Failure of outpatient treatment, Ambulatory dysfunction ED Provider Note NAME: DARWIN CORREA AGE: 84 SEX: F : 1940 ARRIVES VIA: Ambulance INFORMANT: [Patient] ED PROVIDER(S): [Keo Early MD] CHIEF COMPLAINT: Back pain HISTORY OF PRESENT ILLNESS: The patient is an 84-year-old female who presents to the ER with ongoing lower back pain. The patient was seen at our facility 2 days ago and found to have severe lumbar stenosis. She was offered a hospital stay for rehab and strengthening however, chose to go home. She has been trying oxycodone. The patient states that she cannot function at home because of the pain. She does live alone. She states that Tylenol and oxycodone does not seem to control her discomfort. She has not had fever, no fall, no weakness noted in the legs per se. PMHx/PSHx/Social Hx: See Below PHYSICAL EXAM: GENERAL: Patient is in no acute distress. HEENT: No acute trauma, normocephalic atraumatic, mucous membranes dry, no nasal congestion. NECK: No stridor, no adenopathy, no meningismus, trachea is midline. LUNGS: Clear to auscultation bilaterally, no wheeze, no rhonchi, breath sounds equal. HEART: Without murmurs gallops or rubs, regular rate and rhythm. ABDOMEN: Soft, nontender, no peritonitis. EXTREMITIES: No cyanosis, full range of motion of all the joints without pain or difficulty. NEUROLOGIC: Awake and alert, poor historian, no acute motor or sensory deficits, no focal weakness. No speech slur. SKIN: No jaundice, no diaphoresis. DIFFERENTIAL DIAGNOSIS: Failed outpatient management, lumbar stenosis, dehydration, debilitation, among others. EMERGENCY DEPARTMENT PROCEDURES: MEDICAL DECISION MAKING: There is no leukocytosis or concerning anemia. There is a normal platelet count. No renal failure or significant electrolyte abnormality. On exam, the patient was not febrile or toxic. She did appear somewhat dehydrated clinically. The patient presents with ongoing lower back pain. She was recently at our ED and found to have severe lumbar spinal stenosis. She was discharged home but has had failed outpatient pain management. She cannot function well at home. She lives alone. Patient requires a hospital stay for PT/OT as well as potential rehab. She may actually benefit from inpatient rehab. I did speak with the patient and case management. The on-call hospitalist was consulted. Prior/Outside records/notes reviewed: Family practice note from 06/20/2024 describing her low back pain in the plan moving forward. Imaging/x-ray results per my interpretation: Chronic Medical/Social conditions affecting care: Advanced age. Care/Management discussed with: Case management, the on-call hospitalist. Level of care consideration(s): After review of the information above and other included data: --I believe the patient requires escalation of care to admission DISPOSITION: Admission Past Med/Surg History Problem List (Updated 06/26/24 @ 16:07 by Keo Early MD) Ambulatory dysfunction (Acute) Failure of outpatient treatment (Acute) Spinal stenosis (Acute) Lower back pain (Acute) Failure to thrive in adult Central stenosis of spinal canal (Acute) Low back pain (Acute) Seasonal allergic rhinitis Incomplete emptying of bladder Hypoxemia Elevated d-dimer Fever Dehydration Anemia Constipation (Acute) Cerumen impaction Chronic left lower quadrant pain Chronic constipation Fall as cause of accidental injury at home as place of occurrence Closed fracture of left condylar process of mandible with routine healing Impacted cerumen of both ears Sensorineural hearing loss (SNHL) of both ears Pulmonary nodule Abnormal CT scan of lung Abdominal discomfort, generalized (Acute) Abnormal electrocardiogram (Acute) Anxiety (Acute) Chronic rhinitis (Acute) Cough, persistent (Acute) Dermatitis (Acute) Dyslipidemia (Acute) Gait instability (Acute) Gross hematuria (Acute) Hearing loss (Acute) Hematuria (Acute) Microscopic hematuria (Acute) Osteopenia after menopause (Acute) Ovarian cyst (Acute) Pre-operative cardiovascular examination (Acute) Skin tear of right forearm without complication (Acute) Tinnitus (Acute) Urge incontinence of urine (Acute) Urinary frequency (Acute) Urinary urgency (Acute) Vertigo (Acute) Vision problem (Acute) Cerumen impaction Mixed hearing loss Bilateral. Most recent evaluation (06/10), stable since 01/06. Managed with hearing aides Hypothyroidism (Chronic) Long standing, managed with levothyroxine 50mcg daily. TSH wnl (10/10). Osteopenia (Chronic) DEXA (04/11) minimum T score -1.9. Depression (Chronic) Manageed with fluoxetine 80mg daily Mixed incontinence (Chronic) Unsuccessful trial of tolterodine and oxybutynin. Trial of mirabegron 25mg daily for her urinary symptoms. Followed by urology. 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 Medical History Bronchiectasis with (acute) exacerbation Hypoxia UTI (urinary tract infection) Surgical History H/O total adrenalectomy History of ear surgery STAPEDECTOMY History of tonsillectomy and adenoidectomy Family History Mother Diabetes Other Family history non-contributory Social History Smoking Status: Former smoker Hx Alcohol Use: Yes Alcohol type: wine Hx Substance Use: No Preferred Language: Bengali Communication Ability: Effective Communication Ability Comment: hard of hearing Visual Impairment: Limited [employer] Required: No Beliefs That Will Affect Care: None Current Living Situation: Alone Feels Safe at Home: Yes Childhood Exposure to Second-Hand Smoke: No caffeine: Yes (trying to limit as best she can) Seatbelt Use: always Assistive Devices: Glasses Allergies Allergies Allergy/AdvReac Type Severity Reaction Status Date / Time alendronate sodium AdvReac Severe Difficulty Verified 06/24/24 20:05 [From Fosamax] Swallowing Home Meds Home Medications Medication Instructions Recorded Confirmed paroxetine HCl 40 mg tablet (Paxil) 40 mg PO HS 10/16/22 06/26/24 spironolactone 25 mg tablet 25 mg PO UD 06/08/23 06/26/24 mirabegron 25 mg tablet,extended 25 mg PO HS 04/13/24 06/26/24 release 24 hr (Myrbetriq) loratadine 10 mg tablet (Claritin) 10 mg PO HS 05/22/24 06/26/24 cholecalciferol (vitamin D3) 125 125 mcg PO HS 06/24/24 06/26/24 mcg (5,000 unit) capsule Previous Rx's Medication Instructions Recorded levothyroxine 50 mcg tablet 50 mcg PO QAM 90 days #90 tabs 10/31/23 Results & Data (ED) Vital Signs Vital Signs - 24 hr 06/26/24 12:23 06/26/24 14:21 06/26/24 14:27 Temperature 36.5 C Temperature Source Temporal Artery Scan Pulse Rate 90 89 Pulse Rate [Apical] 90 Respiratory Rate 20 Respiratory Effort / Characteristics Non-Labored Spontaneous Respiratory Depth Normal Blood Pressure 140/99 Blood Pressure [Right Arm] 138/84 Blood Pressure Mean 112 Blood Pressure Mean [Right Arm] 102 Pulse Oximetry 94 97 Oxygen Delivery Method Room Air Room Air Sepsis Recent Fever Within 48 Hours No Sepsis New/Unexplained Change in Mental Status No Sepsis Action Taken by Nursing No Action Required Home Medications Current Medication List: was personally reviewed by me Laboratory Data Attestation: I reviewed the patient's lab results. 06/26/24 12:33 06/26/24 12:33 Lab Results 06/26/24 Range/Units 12:33 WBC 8.32 (4.8-10.8) K/ul RBC 4.63 (4.20-5.40) M/uL Hgb 13.4 (12.0-16.0) g/dl Hct 41.7 (37.0-47.0) % MCV 90.1 (80.0-100.0) fL MCH 28.9 (25.0-34.0) pg MCHC 32.1 (32.0-36.0) g/dL RDW Std Deviation 42.2 (36.4-46.3) fL RDW Coeff of Aime 12.9 (11.5-14.5) % Plt Count 342 (130-400) K/uL MPV 9.6 (9.4-12.4) fL Immature Gran % (Auto) 0.4 % Neut % (Auto) 82.0 % Lymph % (Auto) 9.5 % Stephens % (Auto) 6.9 % Eos % (Auto) 0.8 % Baso % (Auto) 0.4 % Neut # (Auto) 6.83 H (1.40-6.50) K/uL Lymph # (Auto) 0.79 L (1.20-3.40) K/uL Stephens # (Auto) 0.57 (0.11-0.59) K/uL Eos # (Auto) 0.07 (0.00-0.50) K/uL Baso # (Auto) 0.03 (0.00-0.20) K/uL Immature Gran # (Auto) 0.03 (0.01-0.20) K/uL Sodium 135 L (136-145) mmol/L Potassium 3.8 (3.5-5.1) mmol/L Chloride 100 (98-107) mmol/L Carbon Dioxide 26 (21-32) mmol/L Anion Gap 9 (3-11) BUN 14 (6-23) mg/dl Creatinine 0.84 (0.6-1.2) mg/dl Est Cr Clr Drug Dosing Not Reportable Est GFR ( Amer) 74.5 ml/min Est GFR (Non-Af Amer) 64.3 ml/min BUN/Creatinine Ratio 16.7 (10-20) Glucose 96 (70-99(Fasting)) mg/dl Calcium 9.8 (8.6-10.3) mg/dl Total Bilirubin 0.6 (0.2-1.0) mg/dl AST 21 (13-39) U/L ALT 14 (7-52) U/L Alkaline Phosphatase 97 (34-104) U/L Total Protein 8.3 (6.0-8.3) gm/dl Albumin 4.5 (3.4-5.0) gm/dl Globulin 3.8 (2.5-4.0) gm/dl Albumin/Globulin Ratio 1.2 (0.9-2) Administered Medications Discontinued Medications Acetaminophen (Acetaminophen 325 Mg Tab) 650 mg PO NOW STA Stop: 06/26/24 13:52 Last Admin: 06/26/24 14:16 Dose: 650 mg Documented By: MALISSA Cyclobenzaprine HCl (Cyclobenzaprine Hcl 5 Mg Tab) 5 mg PO NOW STA Stop: 06/26/24 14:10 Last Admin: 06/26/24 14:16 Dose: 5 mg Documented By: MALISSA Lidocaine (Lidocaine 5% 1 Patch) 1 patch TD NOW STA Stop: 06/26/24 13:52 Last Admin: 06/26/24 14:16 Dose: 1 patch Documented By: MALISSA Discharge Plan Visit Data Chief Complaint: Back Injury/Pain Stated Complaint: Lower back pain ED Provider: Keo Early Discharge Problem: Lower back pain, Spinal stenosis, Failure of outpatient treatment, Ambulatory dysfunction Patient Disposition: Admitted As Inpatient Condition: Fair Forms Stand Alone Forms: [facility] Prescriptions Prescriptions: No Action levothyroxine 50 mcg tablet 50 mcg PO QAM 90 Days Qty: 90 3RF spironolactone 25 mg tablet 25 mg PO UD Rx Instructions: original directions: 25 mg po hs fill history listed as half tab (12.5mg) po hs loratadine [Claritin] 10 mg tablet 10 mg PO HS paroxetine HCl [Paxil] 40 mg tablet 40 mg PO HS Rx Instructions: last filled 02/19 90 day supply mirabegron [Myrbetriq] 25 mg tablet extended release 24 hr 25 mg PO HS cholecalciferol (vitamin D3) 125 mcg (5,000 unit) capsule 125 mcg PO HS Referrals Referrals: Randal Varma DO [Primary Care Provider] - Discharge Problem: Lower back pain Qualifiers: Chronicity: acute Back pain laterality: midline Sciatica presence: without sciatica Qualified Code(s): M54.50 - Low back pain, unspecified Spinal stenosis Qualifiers: Spinal region: unspecified Qualified Code(s): M48.00 - Spinal stenosis, site unspecified
[2024-06-26] MEDS: LIDOCAINE 5% 1 PATCH TD STA (14:16)
[2024-06-26] MEDS: ACETAMINOPHEN 325 MG TAB PO STA (14:16)
[2024-06-26] MEDS: CYCLOBENZAPRINE HCL 5 MG TAB PO STA (14:16)
[2024-06-26] MEDS: VIBEGRON 75 MG TAB PO SCH (20:17)
[2024-06-26] MEDS: SPIRONOLACTONE 25 MG TAB PO SCH (20:17)
[2024-06-26] MEDS: ACETAMINOPHEN 325 MG TAB PO SCH (20:18)
[2024-06-26] MEDS: PARoxetine HCL 20 MG TAB PO SCH (20:18)
[2024-06-27] MEDS: LEVOTHYROXINE SODIUM 50 MCG TABLET PO SCH (05:43)
[2024-06-27 06:42] LABS: Hematocrit (blood only) 34.9 % (37.0-47.0); Hemoglobin 11.6 g/dl (12.0-16.0); Mean Corpuscular Hemoglobin 29.3 pg (25.0-34.0); Mean Corpuscular Hgb Conc 33.2 g/dL (32.0-36.0); Mean Corpuscular Volume 88.1 fL (80.0-100.0); Mean Platelet Volume 9.9 fL (9.4-12.4); Platelet Count 323 K/uL (130-400); RDW Coefficient of Variation 12.6 % (11.5-14.5); RDW Standard Deviation 40.9 fL (36.4-46.3); Red Blood Count 3.96 M/uL (4.20-5.40); White Blood Count 5.89 K/ul (4.8-10.8)
[2024-06-27 07:09] LABS: BUN Creatinine Ratio 14.8 (10-20); Creatinine Clr Calc Pharmacy 43.5 ml/min; Est GFR (African American) 77.8 ml/min; Est GFR (Non-African American) 67.2 ml/min; Potassium 4.4 mmol/L (3.5-5.1)
[2024-06-27] MEDS ORDERED: methylPREDNISolone 10 mg/mL (For Ped Dose < 7mg) IV SCH (08:15)
[2024-06-27] MEDS: DOCUSATE SODIUM 100 MG CAP PO SCH (10:34)
[2024-06-27] MEDS: methylPREDNISolone 40 MG in SYRINGE 0 ML IV SCH (10:35)
--- NOTE | 2024-06-27 12:04 | Hospitalist Progress Note ---
Date of Service June 27, 2024 Assessment & Plan (1) Low back pain: Plan: Lumbar stenosis seen on imaging. Orthopedic spine consultation pending. She is now on parenteral steroid therapy. Parenteral morphine as needed for pain control. Supportive care (2) Failure to thrive in adult: Plan: Supportive care. She likely will need placement. She lives alone (3) Hypothyroidism: Plan: Stable. Continue levothyroxine at current dosage (4) Depression: Plan: Stable. Continue paroxetine Plan Await OT and PT assessments. She lives alone and will likely need placement at discharge Admission and Anticipated Discharge Date Admission Date: June 26, 2024 Subjective Alert and oriented. No distress. Lumbar stenosis seen on imaging. Orthopedic spine consultation requested. She is now on parenteral Solu-Medrol. Will use as needed intravenous morphine for pain control. OT and PT assessments requested. She lives alone and is likely to need placement. Review of Systems 2 Review of Systems: Constitutionalno fever or chills ENTno blurred vision, no double vision, no epistaxis, no sore throat Respiratoryno cough, no wheezing, no shortness of breath Cardiacno palpitations, no chest pain, no syncope [place] nausea, vomiting, diarrhea, melena, hematochezia GUno urinary retention, no urinary incontinence, no dysuria, no hematuria Musculoskeletalsevere low back pain on admission which limited ambulation Skinno bruising, no rashes, no pruritus Neurono isolated weakness, no paresthesia Psychno depression, no anxiety Physical Exam 2 Physical Exam: General-alert and oriented x3, no fever, no chills HEENT-head atraumatic and normocephalic, pupils equal and reactive to light, extraocular muscles intact Neck-no lymphadenopathy or thyromegaly, trachea midline Chest-clear to auscultation. No rales, wheezing or rhonchi Cardiac-regular rate and rhythm, normal S1 and S2 Abdomen-normal bowel sounds, no hepatosplenomegaly Extremities-no cyanosis, clubbing, or edema Neuro-cranial nerves II through XII intact, motor and sensory function within normal limits, strength symmetrical, no focal deficits Psych-normal affect, normal mood Results & Data Results & Data Vital Signs (Past 12 Hours) Vital Signs Temp Pulse Resp BP Pulse Ox O2 Del Method 06/27/24 08:33 37.1 C 89 20 104/69 93 Room Air 06/27/24 07:00 36.5 C 81 16 113/74 94 Room Air Laboratory Results 06/27/24 05:41 06/27/24 05:41 PG Care Time/CCT Total # of Minutes Spent Total Time Spent with Patient: Total time spent is greater than 50% in coordination of care (as documented) at patient's floor/unit and/or counseling patient: Coding Level of Care Code 25702 SUB INP/OBS CARE 3/50MIN Diagnoses Low back pain M54.50 Failure to thrive in adult R62.7 Hypothyroidism E03.9 Depression F32.9
[2024-06-27] MEDS: ACETAMINOPHEN 325 MG TAB PO PRN (14:33)
[2024-06-27] MEDS: POLYETHYLENE (MIRALAX) 17 GM PACK PO SCH (15:09)
--- NOTE | 2024-06-27 23:38 | Magnetic Resonance Report ---
Exam(s): MRI L SPINE Without Contrast EXAM: MR Lumbar Spine Without Intravenous Contrast CLINICAL HISTORY: Reason for exam: back pain. TECHNIQUE: Magnetic resonance images of the lumbar spine without intravenous contrast in multiple planes. COMPARISON: CT 06/24/2024 FINDINGS: Dextroscoliosis. Right lateral translation of L4 on L5. Degenerative related marrow signal changes within the lumbar endplates. Bilateral sacral insufficiency fractures (series 10 image 20). Distal cord is normal. Severe degenerative changes: T12-L1: No spinal canal or foraminal stenosis. L1-L2: Trace diffuse disc bulge. No spinal canal stenosis. Mild foraminal stenosis bilaterally. L2-3: Diffuse disc bulge with ligamentous and facet hypertrophy. Moderate canal stenosis. Moderate left and mild right foraminal stenosis. L3-4: Moderate canal and left lateral recess stenosis. Moderate left and mild right foraminal stenosis. L4-5: Diffuse disc bulge with ligamentum flavum and facet hypertrophy causing severe spinal canal stenosis. Moderate right and severe left foraminal stenosis. L5-S1: Diffuse disc bulge and facet hypertrophy. Mild bilateral lateral recess stenosis. Moderate bilateral foraminal stenosis. IMPRESSION: 1. Dextroscoliosis and advanced degenerative spondylosis as described. Canal stenosis most pronounced at L4-5 where it is severe. Multilevel foraminal stenosis as described. 2. Bilateral sacral insufficiency fractures. Electronically signed by: Zaid Hernandez MD 06/27/24 23:37 PM
[2024-06-28 06:25] LABS: Hematocrit (blood only) 34.3 % (37.0-47.0); Hemoglobin 11.5 g/dl (12.0-16.0); Mean Corpuscular Hemoglobin 29.3 pg (25.0-34.0); Mean Corpuscular Hgb Conc 33.5 g/dL (32.0-36.0); Mean Corpuscular Volume 87.5 fL (80.0-100.0); Mean Platelet Volume 10.2 fL (9.4-12.4); Platelet Count 370 K/uL (130-400); RDW Coefficient of Variation 12.4 % (11.5-14.5); RDW Standard Deviation 39.8 fL (36.4-46.3); Red Blood Count 3.92 M/uL (4.20-5.40); White Blood Count 9.25 K/ul (4.8-10.8)
[2024-06-28 06:48] LABS: BUN Creatinine Ratio 20.3 (10-20); Calcium 9.3 mg/dl (8.6-10.3); Creatinine Clr Calc Pharmacy 51.1 ml/min; Est GFR (African American) 93.3 ml/min; Est GFR (Non-African American) 80.5 ml/min; Potassium 4.5 mmol/L (3.5-5.1)
--- NOTE | 2024-06-28 08:13 | Orthopedic Consultation ---
Date of Consultation June 28, 2024 Assessment & Plan (1) Bilateral sacral insufficiency fracture: Assessment lumbar spinal stenosis with neurogenic claudication with bilateral sacral insufficiency fractures. Plan at this point I would recommend continued physical therapy with utilization of a walker as tolerated. She will require pain control. I will acknowledge the severe spinal stenosis at L4-L5 but in light of her bone health and current clinical status I would not recommend any surgical intervention. She may pursue interventional pain management for trial of epidural injections. History of Present Illness Reason for Consultation: Back and leg pain Attending Physician: Sabas Brooks MD History of Present Illness This is a very pleasant 84-year-old female presents with worsening back and leg symptoms. She states that she was lifting some heavy bottles of water over the past few weeks that may have precipitated her pain. She does describe it at lumbosacral junction. She states her ability to stand and ambulate for any length of time has diminished over the past several months. She describes symptoms rating down the back of her legs. Denies any gross weakness in the lower extremities. Is comfortable at rest. Allergies Allergy/AdvReac Type Severity Reaction Status Date / Time alendronate sodium AdvReac Severe Difficulty Verified 06/24/24 20:05 [From Fosamax] Swallowing Home Medications Medication Instructions Recorded Confirmed Type paroxetine HCl 40 mg tablet (Paxil) 40 mg PO HS 10/16/22 06/26/24 History spironolactone 25 mg tablet 25 mg PO UD 06/08/23 06/26/24 History levothyroxine 50 mcg tablet 50 mcg PO QAM 90 days #90 tabs 10/31/23 06/26/24 Rx mirabegron 25 mg tablet,extended 25 mg PO HS 04/13/24 06/26/24 History release 24 hr (Myrbetriq) loratadine 10 mg tablet (Claritin) 10 mg PO HS 05/22/24 06/26/24 History cholecalciferol (vitamin D3) 125 125 mcg PO HS 06/24/24 06/26/24 History mcg (5,000 unit) capsule Patient History Medical History Bronchiectasis with (acute) exacerbation Hypoxia UTI (urinary tract infection) Surgical History H/O total adrenalectomy History of ear surgery STAPEDECTOMY History of tonsillectomy and adenoidectomy Family History Mother Diabetes Other Family history non-contributory Social History Smoking Status: Former smoker Smoking End Date: 1971; Hx Alcohol Use: No Hx Substance Use: No Preferred Language: Slovenian Communication Ability: Effective Communication Ability Comment: hard of hearing Visual Impairment: Limited Software Sales Required: No Beliefs That Will Affect Care: None Current Living Situation: Alone Other Information That Helps Us Care for You: No Feels Safe at Home: Yes Safety Concerns: Feels Safe At This Time Childhood Exposure to Second-Hand Smoke: No caffeine: Yes (trying to limit as best she can) Seatbelt Use: always Assistive Devices: Walker Physical Exam Physical Exam: On exam she exhibits reasonable strength testing lower extremities. Sensory is intact. Results & Data Vital Signs (Past 12 Hours) Vital Signs Temp Pulse Resp BP Pulse Ox O2 Del Method 06/28/24 07:24 36.8 C 74 16 119/69 96 Room Air
--- NOTE | 2024-06-28 14:39 | Hospitalist Progress Note ---
Date of Service June 28, 2024 Assessment & Plan (1) Low back pain: Plan: Lumbar stenosis seen on imaging. Orthopedic spine consultation noted. No surgery planned at this time. She is now on parenteral steroid therapy and has improved considerably. She is able to ambulate now. She will be discharged on an oral prednisone tapering dose, hopefully tomorrowJune 29. Supportive care (2) Failure to thrive in adult: Plan: Supportive care. She refuses placement. She lives alone (3) Hypothyroidism: Plan: Stable. Continue levothyroxine at current dosage (4) Depression: Plan: Stable. Continue paroxetine Plan She refuses to consider SNF or rehab placement. Probably home tomorrowJune 29, on an oral prednisone tapering dose. Admission and Anticipated Discharge Date Admission Date: June 26, 2024 Subjective She is feeling better and now able to ambulate. She is refusing SNF or rehab placement. Orthopedic spine surgery noted. No indication for surgical intervention at this time. It appears she will be able to go home on oral prednisone tapering dose tomorrow, June 29 Review of Systems 2 Review of Systems: Constitutionalno fever or chills ENTno blurred vision, no double vision, no epistaxis, no sore throat Respiratoryno cough, no wheezing, no shortness of breath Cardiacno palpitations, no chest pain, no syncope [place] nausea, vomiting, diarrhea, melena, hematochezia GUno urinary retention, no urinary incontinence, no dysuria, no hematuria Musculoskeletalsevere low back pain on admission which limited ambulation Skinno bruising, no rashes, no pruritus Neurono isolated weakness, no paresthesia Psychno depression, no anxiety Physical Exam 2 Physical Exam: General-alert and oriented x3, no fever, no chills HEENT-head atraumatic and normocephalic, pupils equal and reactive to light, extraocular muscles intact Neck-no lymphadenopathy or thyromegaly, trachea midline Chest-clear to auscultation. No rales, wheezing or rhonchi Cardiac-regular rate and rhythm, normal S1 and S2 Abdomen-normal bowel sounds, no hepatosplenomegaly Extremities-no cyanosis, clubbing, or edema Neuro-cranial nerves II through XII intact, motor and sensory function within normal limits, strength symmetrical, no focal deficits Psych-normal affect, normal mood Results & Data Results & Data Vital Signs (Past 12 Hours) Vital Signs Temp Pulse Resp BP Pulse Ox O2 Del Method 06/28/24 08:34 Room Air 06/28/24 07:24 36.8 C 74 16 119/69 96 Room Air Laboratory Results 06/28/24 05:36 06/28/24 05:36 PG Care Time/CCT Total # of Minutes Spent Total Time Spent with Patient: Total time spent is greater than 50% in coordination of care (as documented) at patient's floor/unit and/or counseling patient: Coding Level of Care Code 78034 SUB INP/OBS CARE 2/35MIN Diagnoses Low back pain M54.50 Failure to thrive in adult R62.7 Hypothyroidism E03.9 Depression F32.9
[2024-06-29 09:57] LABS: Hematocrit (blood only) 36.9 % (37.0-47.0); Hemoglobin 11.8 g/dl (12.0-16.0); Mean Corpuscular Hemoglobin 29.1 pg (25.0-34.0); Mean Corpuscular Volume 91.1 fL (80.0-100.0); Mean Platelet Volume 9.8 fL (9.4-12.4); Platelet Count 445 K/uL (130-400); RDW Coefficient of Variation 12.7 % (11.5-14.5); Red Blood Count 4.05 M/uL (4.20-5.40)
[2024-06-29 10:07] LABS: BUN Creatinine Ratio 26.8 (10-20); Calcium 9.1 mg/dl (8.6-10.3); Est GFR (African American) 76.7 ml/min; Est GFR (Non-African American) 66.2 ml/min; Potassium 4.6 mmol/L (3.5-5.1)
--- NOTE | 2024-06-29 12:16 | Hospitalist Progress Note ---
Date of Service June 29, 2024 Assessment & Plan (1) Low back pain: Plan: Lumbar stenosis seen on imaging. Orthopedic spine consultation noted. No surgery planned at this time. She is now on parenteral steroid therapy and has improved considerably. She is able to ambulate now. She will be discharged on an oral prednisone tapering dose eventually. (2) Failure to thrive in adult: Plan: Supportive care. She is now agreeable to SNF placement. This is pending. She lives alone (3) Hypothyroidism: Plan: Stable. Continue levothyroxine at current dosage (4) Depression: Plan: Stable. Continue paroxetine Plan She is now willing to consider SNF placement if it is paid for. Case management updated. Admission and Anticipated Discharge Date Admission Date: June 26, 2024 Subjective The patient now states she is willing to go to an SNF facility if it will be paid for. She lives alone and has no one to stay with her. Otherwise stable. She remains on parenteral steroid therapy and will be switched to oral prednisone taper at discharge. Review of Systems 2 Review of Systems: Constitutionalno fever or chills ENTno blurred vision, no double vision, no epistaxis, no sore throat Respiratoryno cough, no wheezing, no shortness of breath Cardiacno palpitations, no chest pain, no syncope [place] nausea, vomiting, diarrhea, melena, hematochezia GUno urinary retention, no urinary incontinence, no dysuria, no hematuria Musculoskeletalsevere low back pain on admission which limited ambulation Skinno bruising, no rashes, no pruritus Neurono isolated weakness, no paresthesia Psychno depression, no anxiety Physical Exam 2 Physical Exam: General-alert and oriented x3, no fever, no chills HEENT-head atraumatic and normocephalic, pupils equal and reactive to light, extraocular muscles intact Neck-no lymphadenopathy or thyromegaly, trachea midline Chest-clear to auscultation. No rales, wheezing or rhonchi Cardiac-regular rate and rhythm, normal S1 and S2 Abdomen-normal bowel sounds, no hepatosplenomegaly Extremities-no cyanosis, clubbing, or edema Neuro-cranial nerves II through XII intact, motor and sensory function within normal limits, strength symmetrical, no focal deficits Psych-normal affect, normal mood Results & Data Results & Data Vital Signs (Past 12 Hours) Vital Signs Temp Pulse Resp BP Pulse Ox O2 Del Method 06/29/24 08:13 37.0 C 68 20 114/67 97 Room Air Laboratory Results 06/29/24 09:22 06/29/24 09:22 PG Care Time/CCT Total # of Minutes Spent Total Time Spent with Patient: Total time spent is greater than 50% in coordination of care (as documented) at patient's floor/unit and/or counseling patient: Coding Level of Care Code 98453 SUB INP/OBS CARE 2/35MIN Diagnoses Low back pain M54.50 Failure to thrive in adult R62.7 Hypothyroidism E03.9 Depression F32.9
--- NOTE | 2024-06-30 11:51 | Hospitalist Progress Note ---
Date of Service June 30, 2024 Assessment & Plan (1) Low back pain: Plan: Lumbar stenosis seen on imaging. Orthopedic spine consultation noted. No surgery planned at this time. Parenteral steroid therapy has been switched to oral prednisone dosing today, June 30. She has improved. She is able to ambulate now. She will be discharged on an oral prednisone tapering dose. (2) Failure to thrive in adult: Plan: Supportive care. She is now agreeable to SNF placement. This is pending. She lives alone (3) Hypothyroidism: Plan: Stable. Continue levothyroxine at current dosage (4) Depression: Plan: Stable. Continue paroxetine Plan Anticipate discharge to SNF when arrangements are finalized. Admission and Anticipated Discharge Date Admission Date: June 26, 2024 Subjective Alert and oriented. No new problems. Parenteral Solu-Medrol switched to oral prednisone today, June 30. Will discharge to SNF when arrangements are finalized Review of Systems 2 Review of Systems: Constitutionalno fever or chills ENTno blurred vision, no double vision, no epistaxis, no sore throat Respiratoryno cough, no wheezing, no shortness of breath Cardiacno palpitations, no chest pain, no syncope [place] nausea, vomiting, diarrhea, melena, hematochezia GUno urinary retention, no urinary incontinence, no dysuria, no hematuria Musculoskeletalsevere low back pain on admission which limited ambulation Skinno bruising, no rashes, no pruritus Neurono isolated weakness, no paresthesia Psychno depression, no anxiety Physical Exam 2 Physical Exam: General-alert and oriented x3, no fever, no chills HEENT-head atraumatic and normocephalic, pupils equal and reactive to light, extraocular muscles intact Neck-no lymphadenopathy or thyromegaly, trachea midline Chest-clear to auscultation. No rales, wheezing or rhonchi Cardiac-regular rate and rhythm, normal S1 and S2 Abdomen-normal bowel sounds, no hepatosplenomegaly Extremities-no cyanosis, clubbing, or edema Neuro-cranial nerves II through XII intact, motor and sensory function within normal limits, strength symmetrical, no focal deficits Psych-normal affect, normal mood Results & Data Results & Data Vital Signs (Past 12 Hours) Vital Signs Temp Pulse Resp BP Pulse Ox O2 Del Method 06/30/24 08:35 36.5 C 68 16 122/78 97 Room Air Laboratory Results 06/29/24 09:22 06/29/24 09:22 PG Care Time/CCT Total # of Minutes Spent Total Time Spent with Patient: Total time spent is greater than 50% in coordination of care (as documented) at patient's floor/unit and/or counseling patient: Coding Level of Care Code 74491 SUB INP/OBS CARE 3/50MIN Diagnoses Low back pain M54.50 Failure to thrive in adult R62.7 Hypothyroidism E03.9 Depression F32.9
[2024-06-30] MEDS: predniSONE 10 MG TABLET PO SCH (15:43)
[2024-07-01] MEDS: MoRPHine SULFATE 2 MG/ML CARP IV PRN (05:53)
--- NOTE | 2024-07-01 14:27 | Hospitalist Progress Note ---
Date of Service July 01, 2024 Assessment & Plan (1) Low back pain: Plan: Lumbar stenosis seen on imaging. Orthopedic spine consultation noted. No surgery planned at this time. Parenteral steroid therapy has been switched to oral prednisone dosing on June 30. She has improved. She is able to ambulate now. She will be discharged on an oral prednisone tapering dose. (2) Failure to thrive in adult: Plan: Supportive care. She is now agreeable to SNF placement. This is pending. She lives alone (3) Hypothyroidism: Plan: Stable. Continue levothyroxine at current dosage (4) Depression: Plan: Stable. Continue paroxetine Plan Anticipate discharge to SNF when arrangements are finalized. Admission and Anticipated Discharge Date Admission Date: June 26, 2024 Subjective Alert and pleasant. No new problems. She is hard of hearing however. She remains on oral prednisone that will eventually be tapered off. SNF placement is pending. Review of Systems 2 Review of Systems: Constitutionalno fever or chills ENTno blurred vision, no double vision, no epistaxis, no sore throat Respiratoryno cough, no wheezing, no shortness of breath Cardiacno palpitations, no chest pain, no syncope [place] nausea, vomiting, diarrhea, melena, hematochezia GUno urinary retention, no urinary incontinence, no dysuria, no hematuria Musculoskeletalsevere low back pain on admission which limited ambulation Skinno bruising, no rashes, no pruritus Neurono isolated weakness, no paresthesia Psychno depression, no anxiety Physical Exam 2 Physical Exam: General-alert and oriented x3, no fever, no chills HEENT-head atraumatic and normocephalic, pupils equal and reactive to light, extraocular muscles intact Neck-no lymphadenopathy or thyromegaly, trachea midline Chest-clear to auscultation. No rales, wheezing or rhonchi Cardiac-regular rate and rhythm, normal S1 and S2 Abdomen-normal bowel sounds, no hepatosplenomegaly Extremities-no cyanosis, clubbing, or edema Neuro-cranial nerves II through XII intact, motor and sensory function within normal limits, strength symmetrical, no focal deficits Psych-normal affect, normal mood Results & Data Results & Data Vital Signs (Past 12 Hours) Vital Signs Temp Pulse Pulse Resp BP BP Pulse Ox 07/01/24 14:24 36.3 C L 82 16 123/76 98 07/01/24 07:15 36.8 C 73 16 161/93 H 95 O2 Del Method 07/01/24 14:24 Room Air 07/01/24 07:15 Room Air Laboratory Results 06/29/24 09:22 06/29/24 09:22 PG Care Time/CCT Total # of Minutes Spent Total Time Spent with Patient: Total time spent is greater than 50% in coordination of care (as documented) at patient's floor/unit and/or counseling patient: Coding Level of Care Code 10536 SUB INP/OBS CARE 2/35MIN Diagnoses Low back pain M54.50 Failure to thrive in adult R62.7 Hypothyroidism E03.9 Depression F32.9
--- NOTE | 2024-07-02 18:13 | Hospitalist Progress Note ---
Date of Service July 02, 2024 Assessment & Plan (1) Spinal stenosis: Plan: Prevents with acute on chronic lower back pain radiating down the legs. Failed outpatient treatment. Severe lumbar spine stenosis at L4-L5 seen on imaging with MRI. She also has bilateral sacral insufficiency fractures. Orthopedic spine consultation noted. No surgery planned at this time. Parenteral steroid therapy has been switched to oral prednisone dosing on June 30. She has improved. She is able to ambulate now. She will be discharged on an oral prednisone tapering dose. Continue Tylenol as needed for mild pain and add oxycodone 5 mg p.o. every 6 hours as needed for moderate to severe pain Consider outpatient follow-up with pain management for steroid injections Needs rehab placement (2) Bilateral sacral insufficiency fracture: Plan: As noted above (3) Hypothyroidism: Plan: Stable. Recent TSH normal in 04/2024 Continue levothyroxine at current dosage (4) Depression: Plan: With a diagnosis of OCD. Continue paroxetine Plan Urinary urgency-continue Myrbetriq Right-sided heart failure-stable, continue home spironolactone DVT prophylaxis-add Lovenox Disposition-awaiting [facility] facility placement-anticipate discharge to SNF when arrangements are finalized. Admission and Anticipated Discharge Date Admission Date: June 26, 2024 Subjective Patient reports ongoing fairly significant pain in her lower back going down her legs. She is requesting Tylenol. She does say that 1 mg of IV morphine she received previously really did help but knows that she cannot be on IV pain medicine to go to rehab. Otherwise no other concerns Physical Exam Constitutional: WD/WN, vitals as above Respiratory: normal respiratory effort, lungs clear to auscultation Cardiovascular: RRR, no murmur, no edema Musculoskeletal: Extremities: extremities normal to inspection Neurologic: no focal motor deficits and not confused Results & Data Results & Data Vital Signs (Past 12 Hours) Vital Signs Temp Pulse Resp BP Pulse Ox O2 Del Method 07/02/24 07:22 36.8 C 64 18 123/93 95 Room Air Laboratory Results No labs to review PG Care Time/CCT Total # of Minutes Spent Total Time Spent with Patient: Total time spent is greater than 50% in coordination of care (as documented) at patient's floor/unit and/or counseling patient: Coding Level of Care Code 21272 SUB INP/OBS CARE 2/35MIN Diagnoses Spinal stenosis M48.00 Spinal region: unspecified Bilateral sacral insufficiency fracture M84.48XA Hypothyroidism E03.9 Depression F32.9 (1) Spinal stenosis Spinal region: unspecified Qualified Code(s): M48.00 - Spinal stenosis, site unspecified
[2024-07-02 20:15] VITALS: RESP 16
[2024-07-02] MEDS: ENOXAPARIN INJ 30 MG/0.3 ML SYR SQ SCH (21:02)
[2024-07-02] MEDS: oxyCODONE HCL IR 5 MG TAB (IMMEDIATE RELEASE) PO PRN (23:47)
--- NOTE | 2024-07-03 15:55 | Hospitalist Progress Note ---
Date of Service July 03, 2024 Assessment & Plan (1) Spinal stenosis: Plan: Presents with acute on chronic lower back pain radiating down the legs. Failed outpatient treatment. Severe lumbar spine stenosis at L4-L5 seen on imaging with MRI. She also has bilateral sacral insufficiency fractures. Orthopedic spine consultation noted. No surgery planned at this time. Parenteral steroid therapy has been switched to oral prednisone dosing on June 30. She has improved. Taper to prednisone 20mg daily now She is able to ambulate now and SNF stay denied by insurance Continue Tylenol as needed for mild pain and added oxycodone 5 mg p.o. every 6 hours as needed for moderate to severe pain Consider outpatient follow-up with pain management for steroid injections (2) Bilateral sacral insufficiency fracture: Plan: As noted above (3) Hypothyroidism: Plan: Stable. Recent TSH normal in 04/2024 Continue levothyroxine at current dosage (4) Depression: Plan: With a diagnosis of OCD. Continue paroxetine Plan Urinary urgency-continue Myrbetriq Right-sided heart failure-stable, continue home spironolactone DVT prophylaxis-Lovenox Disposition-now denied SNF stay by insurance. Plan for dc to home with home health in daughter's care tomorrow Admission and Anticipated Discharge Date Admission Date: June 26, 2024 Subjective Pt had more severe pain last night, couldn't sleep so took the oxycodone which helped with her back. Had BM yesterday but none today. Otherwise no concerns I did a peer to peer with her insurance company today who denied SNF Physical Exam Constitutional: WD/WN, vitals as above Respiratory: normal respiratory effort, lungs clear to auscultation Cardiovascular: RRR, no murmur, no edema Musculoskeletal: Extremities: extremities normal to inspection Neurologic: no focal motor deficits and not confused Results & Data Results & Data Vital Signs (Past 12 Hours) Vital Signs Temp Pulse Resp BP Pulse Ox O2 Del Method 07/03/24 14:54 36.7 C 68 16 130/81 95 Room Air 07/03/24 07:19 36.3 C L 72 16 129/91 95 Room Air PG Care Time/CCT Total # of Minutes Spent Total Time Spent with Patient: Total time spent is greater than 50% in coordination of care (as documented) at patient's floor/unit and/or counseling patient: Coding Level of Care Code 65543 SUB INP/OBS CARE 1/25MIN Diagnoses Spinal stenosis M48.00 Spinal region: unspecified Bilateral sacral insufficiency fracture M84.48XA Hypothyroidism E03.9 Depression F32.9 (1) Spinal stenosis Spinal region: unspecified Qualified Code(s): M48.00 - Spinal stenosis, site unspecified
[2024-07-03 22:14] VITALS: TEMP 98.4; O2SAT 96
[2024-07-04 07:45] VITALS: BP 137/81; PULSE 73
[2024-07-04] MEDS: predniSONE 20 MG TAB PO SCH (08:08)
--- NOTE | 2024-07-04 10:38 | Discharge Summary ---
Discharge Summary Date of Service July 04, 2024 Principal Dx & Hospital Course #1 = Principal Diagnosis (1) Spinal stenosis: Presents with acute on chronic lower back pain radiating down the legs. Failed outpatient treatment. Severe lumbar spine stenosis at L4-L5 seen on imaging with MRI. She also has bilateral sacral insufficiency fractures. Orthopedic spine consultation noted. No surgery planned at this time. Parenteral steroid therapy has been switched to oral prednisone dosing on June 30. She has improved. Taper to prednisone 20mg daily now x 3 more days She is able to ambulate now and SNF stay denied by insurance Continue Tylenol as needed for mild pain and added oxycodone 5 mg p.o. every 6 hours as needed for moderate to severe pain Consider outpatient follow-up with pain management for steroid injections-PCP can refer if needed (2) Bilateral sacral insufficiency fracture: As noted above (3) Hypothyroidism: Stable. Recent TSH normal in 04/2024 Continue levothyroxine at current dosage (4) Depression: With a diagnosis of OCD. Continue paroxetine Plan Urinary urgency-continue Myrbetriq Right-sided heart failure-stable, continue home spironolactone DVT prophylaxis-Lovenox Disposition- denied SNF stay by insurance. Plan for dc to home with home health in daughter's care today Notes For Next Care Provider Consider referral to Pain Management Medication Changes From Visit Added prednisone 20mg po daily x 3 days Added oxycodone 5mg po q6h prn moderate-severe pain Added tylenol 650mg po q6h prn mild-moderate pain Admission HPI Per Admitting Provider Shira is an 84-year-old female with a past medical history significant for hypothyroidism, anxiety, and CKD who presented back to the [facility] for the second time in 48 hours for ongoing uncontrolled low back pain and failure to thrive at home. Patient was initially seen in our emergency department on 06/24/2024 with the same pain. CT of the lumbar spine noted moderate to severe facet arthrosis and degenerative disc disease within the lumbar space. Suspected severe central canal stenosis at L4-L5. Multilevel neuroforaminal stenosis but was negative for acute trauma. The patient was reportedly offered admission on 06/24/2024 for pain control and PT/OT but declined. Patient was given 4 mg IV morphine in the ED on 06/24/2024 with improvement of her symptoms and appeared to have been recommended to use Tylenol for pain at home.. She reportedly called EMS again today as she could not safely take care of herself at home Due to the severity of her back pain. Patient remained stable in the ED today. Labs including CBC and CMP were unremarkable. Repeat imaging was not obtained as the patient's symptoms have been unchanged since being seen on 06/24/2024. We were asked to admit the patient for ongoing symptom control, evaluation by PT/OT, and likely placement at the time of discharge. Patient was sitting in bed in no acute distress at time of exam, patient is incredibly hard of hearing at baseline. Confirms that pain control has been unsuccessful at home with using Tylenol. Pain was so severe today that she was unable to safely get out of bed to make herself breakfast. Again denies any changes in the back pain which starts in the low back and radiates down the bilateral lower extremities. When asked to describe pain she states "feels like a cramping almost like very bad menstrual cramps". Denies new numbness/tingling, saddle anesthesia, loss of bowel or bladder function, or weakness in the lower extremities. No recent falls or trauma. We discussed CODE STATUS, she wishes to be full code at this time for her daughter to make medical decisions for her if she cannot make them herself. Please refer to Dr. Parisi's attestation for any changes to the treatment plan Discharge Exam Constitutional WD/WN, vitals as above Respiratory normal respiratory effort Musculoskeletal Extremities: extremities normal to inspection Neurologic no focal motor deficits and not confused Discharge Plan Discharge Items Patient Disposition: Home - Home Health Services Reason For Visit: UNCONTROLLED BACK PAIN, FAILURE TO THRIVE Discharge Diagnosis: Severe lumbar spine stenosis Sacral insufficiency fractures Condition on Discharge: Fair Activity: As commented below Lifting: No more than 5 pounds Bathing: No limitations Exercise/Sports: Gradually increase as tolerated Exercise Comment: With home PT/OT Weightbearing: Full weightbearing Non-emergency contact: Primary Care Provider, Surgeon and Pain Management Call non-emergency contact if: you have any medication questions, your symptoms worsen and your pain is not controlled Follow-up/Referrals: Randal Varma DO [Primary Care Provider] - 07/13/24 11:00 am Diet: Regular Addtl Attending Provider Instructions: You are admitted with severe back pain from lumbar spinal stenosis. You were treated with steroids to reduce inflammation and pain medication. You can continue to taper down the steroids and take Tylenol for mild to moderate pain and oxycodone for moderate to severe pain. Please follow-up with pain management as an outpatient to consider steroid injections for improved pain control. Pending Studies at Discharge: No Stand-Alone Forms: My [facility], Smoking Cessation Medications and DC Order Prescriptions: New acetaminophen 325 mg Tablet 650 mg PO Q6H PRN (Reason: pain) Qty: 30 0RF oxycodone 5 mg Tablet 5 mg PO Q6H PRN (Reason: moderate-severe pain) Qty: 20 0RF polyethylene glycol 3350 [Miralax] 17 gram Powder In Packet 17 g PO DAILY Qty: 30 0RF prednisone 20 mg Tablet 20 mg PO QAM Qty: 3 0RF docusate sodium 100 mg Capsule 100 mg PO BID Qty: 60 0RF Continued levothyroxine 50 mcg tablet 50 mcg PO QAM 90 Days Qty: 90 3RF spironolactone 25 mg tablet 25 mg PO UD Rx Instructions: original directions: 25 mg po hs fill history listed as half tab (12.5mg) po hs loratadine [Claritin] 10 mg tablet 10 mg PO HS paroxetine HCl [Paxil] 40 mg tablet 40 mg PO HS Rx Instructions: last filled 02/19 90 day supply mirabegron [Myrbetriq] 25 mg tablet extended release 24 hr 25 mg PO HS cholecalciferol (vitamin D3) 125 mcg (5,000 unit) capsule 125 mcg PO HS Discharge Orders: Discharge Order (Routine); Ordered 07/04/24 Ordered By: Ángela Sims/Other Patient Handouts: Back Basics: A Healthy Spine, Back Care Every Day Admission Data Admit Date/Time: 06/26/24 13:51 Attending Provider: Ángela Gordon Admit Provider: Deon Parisi Primary Care Provider: Randal Varma Other Providers: Deon Parisi; Sam Hernandez; Joycelyn,Home Health Other Interventions: Discharge Summary Assessment (RN) Last Done: 07/04/24 10:43 Hospital Stay Data Consultations 06/26/24 13:48 ED Decision to Admit Stat 06/27/24 11:15 Consult Orthopedic Spine Surgery Routine Diagnostic Imagining Performed 06/27/24 12:00 MR lumbar spine wo con Urgent Pending Results Patient Have Any Pending Studies at Discharge: No Discharge Instructions Given to Patient (Per Discharging Provider) You are admitted with severe back pain from lumbar spinal stenosis. You were treated with steroids to reduce inflammation and pain medication. You can continue to taper down the steroids and take Tylenol for mild to moderate pain and oxycodone for moderate to severe pain. Please follow-up with pain management as an outpatient to consider steroid injections for improved pain control. Total Time Total Time Spent Total Time Spent (In Minutes): 35 min Discussed her care with her daughter Sis on day of discharge Total Time Includes: Examination of the Patient, Discharge Planning and Medication Reconciliation Coding Level of Care Code 18416 INP/OBS DISCH >30 MIN Diagnoses Spinal stenosis M48.00 Spinal region: unspecified Bilateral sacral insufficiency fracture M84.48XA Hypothyroidism E03.9 Depression F32.9
== END 2024-07-04 11:06 | disposition home health service (06) | DRG 552 ==
LOC: ED 12:16 → SUATTDRO 13:51 → 3E 13:51

== ENCOUNTER 2024-07-06 06:23 | Inpatient (IN) ==
--- NOTE | 2024-07-06 06:34 | Emergency Department Note ---
Impression & Plan Acute lumbar back pain, Thrombocytosis ED Provider Note NAME: DARWIN CORREA AGE: 84 SEX: F : 1940 ARRIVES VIA: Ambulance INFORMANT: Patient, ED PROVIDER(S): Kevin Maza MD CHIEF COMPLAINT: Back pain MEDICAL DECISION MAKING: Patient presented due to concern for back pain. IV was established and blood work was obtained. Patient was ordered IV morphine as well as Tylenol lidocaine patch and IV steroids. Patient's blood work shows a normal white count hemoglobin with thrombocytosis of 460. The patient's kidney function is unremarkable. Upon reassessment the patient did have some improvement but states that when she got up to go to the bathroom when she sat on the toilet she had worsening pain. Patient does feel better when she is in bed sitting upright. Patient does have some interval worsening of osteoarthritic change with associated scoliosis. Patient does not feel as though she is able to go home at this time. I did speak with case management in order to see if the patient could be placed for the emergency department. Unable to be completed per Lyndsey. I did speak with the on-call hospitalist service Dr. Fortune and the patient was admitted to the medicine service. Discussion w/ other healthcare providers: radiology services manager Lyndsey Fortune inpatient medicine service Prior /Outside records reviewed: I reviewed part of a discharge summary from July 04, 2024. Known history of spinal stenosis bilateral sacral insufficiency fractures fracture hypothyroidism and depression. Patient noted to have severe lumbar spine stenosis L4-L5 no planned surgery. Patient did switch from IV to p.o. steroids. Patient was ambulatory SNF stay denied by insurance at that time. Differential diagnosis: Musculoskeletal, disc herniation, fracture, sprain, strain, cord compression, discitis, sciatica, cauda equina, infection, renal colic, as well as other pathologies were considered. Diagnostics, as interpreted by me: ECG: None Cardiac monitoring: An order was placed for continuous cardiac monitoring. The monitor shows a rate of 73 with sinus rhythm. Patient was placed on pulse oximetry Medical decision rules: None Imaging studies: I informally interpreted the patient's lumbar spine x-rays that shows scoliosis with formal report to follow. HPI: Patient presents due to concern for back pain. The patient did have a recent admission subsequent discharge and states that she had been referred to a SNF but this was denied by insurance and the patient was referred for outpatient follow-up and treatment as well as PT follow-up. The patient states that she saw PT yesterday did not do anything other than sign paperwork and was told that she will be seen when she gets seen. The patient states that she did take an oxycodone while watching the evening news last night and has not taken anything since about 10:00. The patient states that the pain has been fairly constant. Does radiate down both legs. No bowel or bladder incontinence or retention. The patient has been taking laxatives that she has been taking the pain medication and states that sometimes she does have a painful bowel movement which may also contribute to some of her back pain she reports. Patient denies any dysuria. Patient denies any numbness or weakness. PAST MEDICAL HISTORY: See Below PAST SURGICAL HISTORY: See Below SOCIAL HISTORY: See Below HOME MEDICATIONS: See Below ALLERGIES: See Below VITALS: See Below PHYSICAL EXAMINATION: GENERAL: NAD, non-toxic. Hard of hearing. Wears glasses. EYE EXAM: Normal conjunctiva. PERRL, no anisocoria and EOM's grossly intact w/o pain. OROPHARYNX: Moist mucus membranes, grossly normal dentition. NECK: Trachea midline, no stridor. Supple, no nuchal rigidity, no adenopathy, non-tender. No signs of meningismus. FROM of the neck with good chin to chest and neck extension. LUNGS: Clear to auscultation. Normal chest wall mechanics. HEART: NSR, no MRG. ABDOMEN: Abdomen soft, non-tender, no masses, no rebound or guarding. BACK: No CVA TTP. Midline lower lumbar TTP. SKIN: No rashes and no bruising. UPPER EXTREMITIES: Upper extremities are grossly normal. LOWER EXTREMITIES: Grossly normal, no edema. Positive straight leg raise bilaterally. No saddle anesthesia. NEURO EXAM: A&O x3, cranial nerves II-XII grossly intact, normal speech, moves all 4 extremities. Past Med/Surg History Problem List (Updated 07/06/24 @ 14:31 by Kevin Maza MD) Thrombocytosis (Acute) Acute lumbar back pain (Acute) Bilateral sacral insufficiency fracture (~06/27/24) Ambulatory dysfunction (Acute) Failure of outpatient treatment (Acute) Spinal stenosis (Acute) Lower back pain (Acute) Failure to thrive in adult Central stenosis of spinal canal (Acute) Low back pain (Acute) Seasonal allergic rhinitis Incomplete emptying of bladder Hypoxemia Elevated d-dimer Fever Dehydration Anemia Constipation (Acute) Cerumen impaction Chronic left lower quadrant pain Chronic constipation Fall as cause of accidental injury at home as place of occurrence Closed fracture of left condylar process of mandible with routine healing Impacted cerumen of both ears Sensorineural hearing loss (SNHL) of both ears Pulmonary nodule Abnormal CT scan of lung Abdominal discomfort, generalized (Acute) Abnormal electrocardiogram (Acute) Anxiety (Acute) Chronic rhinitis (Acute) Cough, persistent (Acute) Dermatitis (Acute) Dyslipidemia (Acute) Gait instability (Acute) Gross hematuria (Acute) Hearing loss (Acute) Hematuria (Acute) Microscopic hematuria (Acute) Osteopenia after menopause (Acute) Ovarian cyst (Acute) Pre-operative cardiovascular examination (Acute) Skin tear of right forearm without complication (Acute) Tinnitus (Acute) Urge incontinence of urine (Acute) Urinary frequency (Acute) Urinary urgency (Acute) Vertigo (Acute) Vision problem (Acute) Cerumen impaction Mixed hearing loss Bilateral. Most recent evaluation (06/10), stable since 01/06. Managed with hearing aides Hypothyroidism (Chronic) Long standing, managed with levothyroxine 50mcg daily. TSH wnl (10/10). Osteopenia (Chronic) DEXA (04/11) minimum T score -1.9. Depression (Chronic) Manageed with fluoxetine 80mg daily Mixed incontinence (Chronic) Unsuccessful trial of tolterodine and oxybutynin. Trial of mirabegron 25mg daily for her urinary symptoms. Followed by urology. 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 Medical History Bronchiectasis with (acute) exacerbation Hypoxia UTI (urinary tract infection) Surgical History H/O total adrenalectomy History of ear surgery STAPEDECTOMY History of tonsillectomy and adenoidectomy Family History Mother Diabetes Other Family history non-contributory Social History Smoking Status: Former smoker Hx Alcohol Use: No Hx Substance Use: No Preferred Language: Hebrew Communication Ability: Effective Communication Ability Comment: hard of hearing Visual Impairment: Limited Bufferer Required: No Beliefs That Will Affect Care: None Current Living Situation: Alone Feels Safe at Home: Yes Childhood Exposure to Second-Hand Smoke: No caffeine: Yes (trying to limit as best she can) Seatbelt Use: always Assistive Devices: Cane and Walker Allergies Allergies Allergy/AdvReac Type Severity Reaction Status Date / Time alendronate sodium AdvReac Severe Difficulty Verified 06/24/24 20:05 [From Fosamax] Swallowing Home Meds Home Medications Medication Instructions Recorded Confirmed paroxetine HCl 40 mg tablet (Paxil) 40 mg PO HS 10/16/22 07/06/24 spironolactone 25 mg tablet 25 mg PO UD 06/08/23 07/06/24 mirabegron 25 mg tablet,extended 25 mg PO HS 04/13/24 07/06/24 release 24 hr (Myrbetriq) loratadine 10 mg tablet (Claritin) 10 mg PO HS 05/22/24 07/06/24 cholecalciferol (vitamin D3) 125 125 mcg PO HS 06/24/24 07/06/24 mcg (5,000 unit) capsule Previous Rx's Medication Instructions Recorded levothyroxine 50 mcg tablet 50 mcg PO QAM 90 days #90 tabs 10/31/23 acetaminophen 325 mg tablet 650 mg (2 x 325 mg) PO Q6H PRN 07/04/24 pain #30 tabs docusate sodium 100 mg capsule 100 mg PO BID #60 caps 07/04/24 oxycodone 5 mg tablet 5 mg PO Q6H PRN moderate-severe 07/04/24 pain #20 tabs polyethylene glycol 3350 17 gram 17 g PO DAILY #30 ea 07/04/24 oral powder packet (Miralax) prednisone 20 mg tablet 20 mg PO QAM #3 tabs 07/04/24 Results & Data (ED) Vital Signs Vital Signs - 24 hr 07/06/24 06:28 07/06/24 06:31 07/06/24 09:00 Temperature 37.2 C Temperature Source Oral Pulse Rate 88 82 Pulse Rate [Apical] 77 Pulse Rhythm Regular Pulse Rhythm [Apical] Regular Pulse Strength Normal Pulse Strength [Apical] Normal Respiratory Rate 18 17 Respiratory Effort / Characteristics Non-Labored Spontaneous Non-Labored Spontaneous Respiratory Depth Normal Normal Blood Pressure 126/85 Blood Pressure [Right Arm] 130/80 Blood Pressure Mean 98 Blood Pressure Mean [Right Arm] 96 Blood Pressure Position [Right Arm] Semi-fowlers Pulse Oximetry 99 91 Oxygen Delivery Method Room Air Room Air Sepsis Recent Fever Within 48 Hours No Sepsis New/Unexplained Change in Mental Status N/A Sepsis Action Taken by Nursing No Action Required 07/06/24 09:25 Temperature Temperature Source Pulse Rate 77 Pulse Rate [Apical] Pulse Rhythm Regular Pulse Rhythm [Apical] Pulse Strength Pulse Strength [Apical] Respiratory Rate 17 Respiratory Effort / Characteristics Respiratory Depth Blood Pressure Blood Pressure [Right Arm] Blood Pressure Mean Blood Pressure Mean [Right Arm] Blood Pressure Position [Right Arm] Pulse Oximetry 92 Oxygen Delivery Method Room Air Sepsis Recent Fever Within 48 Hours Sepsis New/Unexplained Change in Mental Status Sepsis Action Taken by Snf Medications Current Medication List: was personally reviewed by me Laboratory Data Attestation: I reviewed the patient's lab results. 07/06/24 07:02 07/06/24 07:02 Lab Results 07/06/24 Range/Units 07:02 WBC 8.47 (4.8-10.8) K/ul RBC 4.41 (4.20-5.40) M/uL Hgb 12.6 (12.0-16.0) g/dl Hct 39.6 (37.0-47.0) % MCV 89.8 (80.0-100.0) fL MCH 28.6 (25.0-34.0) pg MCHC 31.8 L (32.0-36.0) g/dL RDW Std Deviation 43.1 (36.4-46.3) fL RDW Coeff of Aime 13.1 (11.5-14.5) % Plt Count 460 H (130-400) K/uL MPV 9.2 L (9.4-12.4) fL Immature Gran % (Auto) 1.2 % Neut % (Auto) 63.2 % Lymph % (Auto) 24.2 % [place] % (Auto) 10.5 % Eos % (Auto) 0.7 % Baso % (Auto) 0.2 % Neut # (Auto) 5.35 (1.40-6.50) K/uL Lymph # (Auto) 2.05 (1.20-3.40) K/uL [place] # (Auto) 0.89 H (0.11-0.59) K/uL Eos # (Auto) 0.06 (0.00-0.50) K/uL Baso # (Auto) 0.02 (0.00-0.20) K/uL Immature Gran # (Auto) 0.10 (0.01-0.20) K/uL Sodium 136 (136-145) mmol/L Potassium 4.5 (3.5-5.1) mmol/L Chloride 101 (98-107) mmol/L Carbon Dioxide 31 (21-32) mmol/L Anion Gap 4 (3-11) BUN 20 (6-23) mg/dl Creatinine 0.68 (0.6-1.2) mg/dl Est Cr Clr Drug Dosing 60.4 ml/min Est GFR ( Amer) 93.8 ml/min Est GFR (Non-Af Amer) 80.9 ml/min BUN/Creatinine Ratio 29.4 H (10-20) Glucose 76 (70-99(Fasting)) mg/dl Calcium 8.8 (8.6-10.3) mg/dl Administered Medications Discontinued Medications Acetaminophen (Acetaminophen 500 Mg Tab) 1,000 mg PO NOW STA Stop: 07/06/24 06:52 Last Admin: 07/06/24 07:06 Dose: 1,000 mg Documented By: JAYLIN Lidocaine (Lidocaine 5% 1 Patch) 1 patch TD NOW STA Stop: 07/06/24 06:52 Last Admin: 07/06/24 07:06 Dose: 1 patch Documented By: JAYLIN Methylprednisolone (Methylprednisolone 125 Mg/2 Ml Vial) 60 mg IV NOW STA Stop: 07/06/24 06:52 Last Admin: 07/06/24 07:06 Dose: 60 mg Documented By: JAYLIN Morphine Sulfate (Morphine Sulfate 4 Mg/Ml 1 Ml Carp\Vial) 4 mg IV NOW STA Stop: 07/06/24 06:52 Last Admin: 07/06/24 07:06 Dose: 4 mg Documented By: JAYLIN Imaging Data Radiologist's Impression: Lumbar Spine X-Ray 07/06/24 06:51 XR lumbar spine 2-3V CLINICAL HISTORY: back pain h/o stenosis TECHNIQUE: 3 views of the lumbar spine were obtained. Comparison: Comparison is made to lumbar spine radiographs 06/01/2024 FINDINGS: There is no evidence of an acute fracture. Degenerative changes are seen in the lumbar spine with osteophyte formation and disc space narrowing. In particular, lumbosacral spondylosis is most apparent at L4. Dextroscoliosis is again noted. Vascular calcifications are noted. IMPRESSION: Interval worsening of osteoarthritic change L4-L5 with associated dextroscoliosis. ACT 112: Negative or not required by law. Electronically signed by: Noah Gamez M.D. 07/06/2024 7:54 AM Discharge Plan Visit Data Chief Complaint: Back Injury/Pain Stated Complaint: Spinal Stenosis, Pain ED Provider: Kevin Maza Discharge Problem: Acute lumbar back pain, Thrombocytosis Discharge Instructions Interventions: ED Discharge Assessment Last Done: 07/06/24 12:35 Discharge Problem: Acute lumbar back pain Qualifiers: Back pain laterality: midline Sciatica presence: with sciatica Sciatica laterality: bilateral sciatica Qualified Code(s): M54.42 - Lumbago with sciatica, left side; M54.41 - Lumbago with sciatica, right side
[2024-07-06] MEDS: LIDOCAINE 5% 1 PATCH TD STA (07:06)
[2024-07-06] MEDS: methylPREDNISolone 125 MG/2 ML VIAL IV STA (07:06)
[2024-07-06] MEDS: MoRPHine SULFATE 4 MG/ML 1 ML CARP\\VIAL IV STA (07:06)
[2024-07-06] MEDS: ACETAMINOPHEN 500 MG TAB PO STA (07:06)
[2024-07-06 07:22] LABS: Basophils # (auto) 0.02 K/uL (0.00-0.20); Basophils % (auto) 0.2 %; Eosinophils # (auto) 0.06 K/uL (0.00-0.50); Eosinophils % (auto) 0.7 %; Hematocrit (blood only) 39.6 % (37.0-47.0); Hemoglobin 12.6 g/dl (12.0-16.0); Immature Granulocytes % (auto) 1.2 %; Lymphocytes # (auto) 2.05 K/uL (1.20-3.40); Lymphocytes % (auto) 24.2 %; Mean Corpuscular Hemoglobin 28.6 pg (25.0-34.0); Mean Corpuscular Hgb Conc 31.8 g/dL (32.0-36.0); Mean Corpuscular Volume 89.8 fL (80.0-100.0); Mean Platelet Volume 9.2 fL (9.4-12.4); Monocytes # (auto) 0.89 K/uL (0.11-0.59); Monocytes % (auto) 10.5 %; Neutrophils # (auto) 5.35 K/uL (1.40-6.50); Neutrophils % (auto) 63.2 %; Platelet Count 460 K/uL (130-400); RDW Coefficient of Variation 13.1 % (11.5-14.5); RDW Standard Deviation 43.1 fL (36.4-46.3); Red Blood Count 4.41 M/uL (4.20-5.40); White Blood Count 8.47 K/ul (4.8-10.8)
[2024-07-06 07:32] LABS: BUN Creatinine Ratio 29.4 (10-20); Calcium 8.8 mg/dl (8.6-10.3); Creatinine Clr Calc Pharmacy 60.4 ml/min; Est GFR (African American) 93.8 ml/min; Est GFR (Non-African American) 80.9 ml/min; Potassium 4.5 mmol/L (3.5-5.1)
--- NOTE | 2024-07-06 07:55 | XRay Report ---
XR lumbar spine 2-3V CLINICAL HISTORY: back pain h/o stenosis TECHNIQUE: 3 views of the lumbar spine were obtained. Comparison: Comparison is made to lumbar spine radiographs 06/01/2024 FINDINGS: There is no evidence of an acute fracture. Degenerative changes are seen in the lumbar spine with ost eophyte formation and disc space narrowing. In particular, lumbosacral spondylosis is most apparent a t L4. Dextroscoliosis is again noted. Vascular calcifications are noted. IMPRESSION: Interval worsening of osteoarthritic change L4-L5 with associated dextroscoliosis. ACT 112: Negative or not required by law. Electronically signed by: Noah Gamez M.D. 07/06/2024 7:54 AM
[2024-07-06] MEDS ORDERED: ONDANSETRON INJ 2 MG/ML 2 ML VIAL IV PRN (12:46)
[2024-07-06] MEDS ORDERED: MAGNESIUM HYDROXIDE SUSP 30 ML UDC PO PRN (12:46)
--- NOTE | 2024-07-06 13:17 | History & Physical Report ---
Date of Service July 06, 2024 Assessment & Plan (1) Spinal stenosis: Plan: Patient has lumbar spinal stenosis and was evaluated by ortho spine surgeon during the last hospital stay. This was thought to be not amenable to surgery. She was treated for pain control with oxycodone and Tylenol during the hospital stay and was discharged on the same regimen along with a prednisone taper She waited in the hospital for placement however her insurance denied rehab and thus she was sent home. Upon discharge, the patient did not do well and had to come back to the hospital as she was crawling on her knees to get to the phone because the pain was so severe Currently her pain is controlled after the morphine and steroid IV she got in the emergency room I will keep her on oxycodone and continue the prednisone taper for now Consult PT and OT Consult case management Patient is hoping for rehab placement (2) Bilateral sacral insufficiency fracture: Plan: Please see above (3) Ambulatory dysfunction: Plan: Please see above (4) Lower back pain: Plan: Please see above (5) Failure to thrive in adult: Plan: Please see above (6) Hypothyroidism: Plan: Continue Synthroid (7) Depression: Plan: Continue paroxetine Plan DVT prophylaxis: Lovenox Full code Admission and Anticipated Discharge Date Admission Date: July 06, 2024 History of Present Illness Chief Complaint: Intractable back pain, ambulatory dysfunction Primary Care Provider: Randal Varma DO This is an 84-year-old female who was just hospitalized from 06/26 to 07/03 for back pain, spinal stenosis. Insurance did not approve SNF stay and thus she was discharged to home on Tylenol, oxycodone and prednisone taper. She says that she went home and her pain was unpredictable. She was taking oxycodone but there were times when her pain was intolerable. This morning she went to the bathroom and was in excruciating pain. She could not stand up and had to crawl on her knees to the phone to call 911. In the emergency room, she was given a dose of IV steroid and IV morphine and currently her pain is fairly controlled. She would like to try to go to rehab. Past medical history 1. 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 Not amenable to surgical intervention per orthospine surgeon 2. Bilateral sacral fractures 3. Hypothyroidism 4. Anxiety/depression 6. Single kidney Allergies Allergy/AdvReac Type Severity Reaction Status Date / Time alendronate sodium AdvReac Severe Difficulty Verified 06/24/24 20:05 [From Fosamax] Swallowing Home Medications Medication Instructions Recorded Confirmed Type paroxetine HCl 40 mg tablet (Paxil) 40 mg PO HS 10/16/22 07/06/24 History spironolactone 25 mg tablet 25 mg PO UD 06/08/23 07/06/24 History levothyroxine 50 mcg tablet 50 mcg PO QAM 90 days #90 tabs 10/31/23 07/06/24 Rx mirabegron 25 mg tablet,extended 25 mg PO HS 04/13/24 07/06/24 History release 24 hr (Myrbetriq) loratadine 10 mg tablet (Claritin) 10 mg PO HS 05/22/24 07/06/24 History cholecalciferol (vitamin D3) 125 125 mcg PO HS 06/24/24 07/06/24 History mcg (5,000 unit) capsule acetaminophen 325 mg tablet 650 mg (2 x 325 mg) PO Q6H PRN 07/04/24 07/06/24 Rx pain #30 tabs docusate sodium 100 mg capsule 100 mg PO BID #60 caps 07/04/24 07/06/24 Rx oxycodone 5 mg tablet 5 mg PO Q6H PRN moderate-severe 07/04/24 07/06/24 Rx pain #20 tabs polyethylene glycol 3350 17 gram 17 g PO DAILY #30 ea 07/04/24 07/06/24 Rx oral powder packet (Miralax) prednisone 20 mg tablet 20 mg PO QAM #3 tabs 07/04/24 07/06/24 Rx Past Med/Surg History Problem List Bilateral sacral insufficiency fracture (~06/27/24) Ambulatory dysfunction (Acute) Failure of outpatient treatment (Acute) Spinal stenosis (Acute) Lower back pain (Acute) Failure to thrive in adult Central stenosis of spinal canal (Acute) Low back pain (Acute) Seasonal allergic rhinitis Incomplete emptying of bladder Hypoxemia Elevated d-dimer Fever Dehydration Anemia Constipation (Acute) Cerumen impaction Chronic left lower quadrant pain Chronic constipation Fall as cause of accidental injury at home as place of occurrence Closed fracture of left condylar process of mandible with routine healing Impacted cerumen of both ears Sensorineural hearing loss (SNHL) of both ears Pulmonary nodule Abnormal CT scan of lung Abdominal discomfort, generalized (Acute) Abnormal electrocardiogram (Acute) Anxiety (Acute) Chronic rhinitis (Acute) Cough, persistent (Acute) Dermatitis (Acute) Dyslipidemia (Acute) Gait instability (Acute) Gross hematuria (Acute) Hearing loss (Acute) Hematuria (Acute) Microscopic hematuria (Acute) Osteopenia after menopause (Acute) Ovarian cyst (Acute) Pre-operative cardiovascular examination (Acute) Skin tear of right forearm without complication (Acute) Tinnitus (Acute) Urge incontinence of urine (Acute) Urinary frequency (Acute) Urinary urgency (Acute) Vertigo (Acute) Vision problem (Acute) Cerumen impaction Mixed hearing loss Bilateral. Most recent evaluation (06/10), stable since 01/06. Managed with h earing aides Hypothyroidism (Chronic) Long standing, managed with levothyroxine 50mcg daily. TSH wnl (10/10). Osteopenia (Chronic) DEXA (04/11) minimum T score -1.9. Depression (Chronic) Manageed with fluoxetine 80mg daily Mixed incontinence (Chronic) Unsuccessful trial of tolterodine and oxybutynin. Trial of mirabegron 25mg daily for her urinary symptoms. Followed by urology. 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 Medical History Bronchiectasis with (acute) exacerbation Hypoxia UTI (urinary tract infection) Surgical History H/O total adrenalectomy History of ear surgery STAPEDECTOMY History of tonsillectomy and adenoidectomy Family History Mother Diabetes Other Family history non-contributory Social History Smoking Status: Former smoker Hx Alcohol Use: No Hx Substance Use: No Preferred Language: Turkish Communication Ability: Effective Communication Ability Comment: hard of hearing Visual Impairment: Limited Mash Filter Operator Required: No Beliefs That Will Affect Care: None Current Living Situation: Alone Feels Safe at Home: Yes Childhood Exposure to Second-Hand Smoke: No caffeine: Yes (trying to limit as best she can) Seatbelt Use: always Assistive Devices: Cane and Walker Review of Systems Review of Systems: All systems reviewed & are unremarkable except as noted in HPI & below Physical Exam Physical Exam: General appearance: Awake, conversant, able to answer questions appropriately. AOx3. Pupils: Equally reactive to light and accommodation Neck: No masses, no thyromegaly Respiration: Clear to auscultation bilaterally. Normal effort Cardiovascular: S1-S2/regular rate and rhythm. No murmur, rubs or gallop. No edema. Abdomen: Soft, nontender, nondistended. No hepatosplenomegaly Musculoskeletal: No clubbing, no cyanosis, normal range of motion Skin: No rashes, no nodules Neuro exam: Cranial nerves intact, sensation grossly intact Psychiatric: Patient has good judgment and insight. AOx3. Mood and affect appear normal Lymphatics: No cervical or axillary lymphadenopathy noted Results & Data Results & Data Vital Signs (Past 12 Hours) Vital Signs Temp Pulse Pulse Resp BP BP Pulse Ox 07/06/24 11:00 75 18 124/75 92 07/06/24 10:34 84 07/06/24 09:25 77 17 92 07/06/24 09:00 77 17 130/80 91 07/06/24 06:31 37.2 C 82 18 126/85 99 07/06/24 06:28 88 O2 Del Method 07/06/24 11:00 Room Air 07/06/24 10:34 07/06/24 09:25 Room Air 07/06/24 09:00 Room Air 07/06/24 06:31 Room Air 07/06/24 06:28 Laboratory Results Abnormal lab results 07/06/24 Range/Units 07:02 MCHC 31.8 L (32.0-36.0) g/dL Plt Count 460 H (130-400) K/uL MPV 9.2 L (9.4-12.4) fL [place] # (Auto) 0.89 H (0.11-0.59) K/uL BUN/Creatinine Ratio 29.4 H (10-20) Code Status & VTE Plan VTE Prophylaxis Plan VTE Prophylaxis will be ordered: Yes PG Care Time/CCT Total # of Minutes Spent Total Time Spent with Patient: Total time spent is greater than 50% in coordination of care (as documented) at patient's floor/unit and/or counseling patient: Coding Level of Care Code 55046 INT INP/OBS CARE MIN Diagnoses Spinal stenosis M48.00 Spinal region: unspecified Bilateral sacral insufficiency fracture M84.48XA Ambulatory dysfunction R26.2 Lower back pain M54.50 Back pain laterality: midline Chronicity: acute Sciatica presence: without sciatica Failure to thrive in adult R62.7 Hypothyroidism E03.9 Depression F32.9 (1) Spinal stenosis Spinal region: unspecified Qualified Code(s): M48.00 - Spinal stenosis, site unspecified (4) Lower back pain Back pain laterality: midline Chronicity: acute Sciatica presence: without sciatica Qualified Code(s): M54.50 - Low back pain, unspecified
[2024-07-06] MEDS: ENOXAPARIN INJ 40 MG/0.4 ML SYR SQ STA (14:40)
[2024-07-06] MEDS: POLYETHYLENE (MIRALAX) 17 GM PACK PO PRN (20:10)
[2024-07-06] MEDS: ENOXAPARIN INJ 40 MG/0.4 ML SYR SQ SCH (20:10)
[2024-07-06] MEDS: DOCUSATE SODIUM 100 MG CAP PO SCH (20:10)
[2024-07-06] MEDS: PARoxetine HCL 20 MG TAB PO SCH (20:11)
[2024-07-06] MEDS: SPIRONOLACTONE 12.5 MG TAB PO SCH (20:11)
[2024-07-06] MEDS: ACETAMINOPHEN 325 MG TAB PO PRN (21:34)
[2024-07-06] MEDS: MIRABEGRON 25 MG PO SCH (21:35)
[2024-07-07] MEDS: oxyCODONE HCL IR 5 MG TAB (IMMEDIATE RELEASE) PO PRN (04:45)
[2024-07-07] MEDS: LEVOTHYROXINE SODIUM 50 MCG TABLET PO SCH (05:50)
[2024-07-07] MEDS ORDERED: VIBEGRON 75 MG TAB PO SCH (09:00)
[2024-07-07] MEDS: predniSONE 20 MG TAB PO ONE (10:33)
--- NOTE | 2024-07-07 14:36 | Hospitalist Progress Note ---
Date of Service July 07, 2024 Assessment & Plan (1) Spinal stenosis: Plan: Patient has lumbar spinal stenosis and was evaluated by ortho spine surgeon during the last hospital stay. This was thought to be not amenable to surgery. She was treated for pain control with oxycodone and Tylenol during the hospital stay and was discharged on the same regimen along with a prednisone taper She waited in the hospital for placement however her insurance denied rehab and thus she was sent home. Upon discharge, the patient did not do well and had to come back to the hospital as she was crawling on her knees to get to the phone because the pain was so severe Currently her pain is controlled after the morphine and steroid IV she got in the emergency room I will keep her on oxycodone. She completed her prednisone taper today PT and OT consulted. I spoke to occupational therapist. The patient has been very impulsive with her movements which makes it unsafe for her at home living by herself Consult case management Patient is hoping for rehab placement (2) Bilateral sacral insufficiency fracture: Plan: Please see above (3) Ambulatory dysfunction: Plan: Please see above (4) Lower back pain: Plan: Please see above (5) Failure to thrive in adult: Plan: Please see above (6) Hypothyroidism: Plan: Continue Synthroid (7) Depression: Plan: Continue paroxetine Plan DVT prophylaxis: Lovenox Full code Admission and Anticipated Discharge Date Admission Date: July 06, 2024 Subjective Patient says that when she walks, her pain level goes up but when she comes back to bed, her pain level comes down. I spoke to occupational therapist today. The patient was noted to be very impulsive in her movements. She has been given a new walker and she tries to go too quickly with her movements making it unsafe. She does not have anybody living with her. Review of Systems Review of Systems: All systems reviewed & are unremarkable except as noted in Subjective Physical Exam Physical Exam: General: Awake, conversant Heart: S1, S2/regular rate and rhythm, no murmur rubs or gallops Lungs: Clear to auscultation bilaterally. Normal effort Abdomen: Soft/nontender/nondistended. No hepatosplenomegaly Extremities: No clubbing/cyanosis. No edema Behavior: Appropriate, cooperative Results & Data Results & Data Vital Signs (Past 12 Hours) Vital Signs Temp Pulse Resp BP Pulse Ox O2 Del Method 07/07/24 08:10 Room Air 07/07/24 07:14 36.7 C 71 17 144/88 H 94 Room Air PG Care Time/CCT Total # of Minutes Spent Total Time Spent with Patient: Total time spent is greater than 50% in coordination of care (as documented) at patient's floor/unit and/or counseling patient: Coding Level of Care Code 63677 SUB INP/OBS CARE 2/35MIN Diagnoses Spinal stenosis M48.00 Spinal region: unspecified Bilateral sacral insufficiency fracture M84.48XA Ambulatory dysfunction R26.2 Lower back pain M54.50 Back pain laterality: midline Chronicity: acute Sciatica presence: without sciatica Failure to thrive in adult R62.7 Hypothyroidism E03.9 Depression F32.9 (1) Spinal stenosis Spinal region: unspecified Qualified Code(s): M48.00 - Spinal stenosis, site unspecified (4) Lower back pain Back pain laterality: midline Chronicity: acute Sciatica presence: without sciatica Qualified Code(s): M54.50 - Low back pain, unspecified
[2024-07-08] MEDS: ENOXAPARIN INJ 40 MG/0.4 ML SYR SQ SCH (08:55)
[2024-07-08] MEDS: LIDOCAINE 5% 1 PATCH TD SCH (08:56)
--- NOTE | 2024-07-08 13:11 | Hospitalist Progress Note ---
Date of Service July 08, 2024 Assessment & Plan (1) Spinal stenosis: Plan: Patient has lumbar spinal stenosis and was evaluated by ortho spine surgeon during the last hospital stay. This was thought to be not amenable to surgery. She was treated for pain control with oxycodone and Tylenol during the hospital stay and was discharged on the same regimen along with a prednisone taper She waited in the hospital for placement however her insurance denied rehab and thus she was sent home. Upon discharge, the patient did not do well and had to come back to the hospital as she was crawling on her knees to get to the phone because the pain was so severe Currently her pain is controlled after the morphine and steroid IV she got in the emergency room I will keep her on oxycodone. She completed her prednisone taper today PT and OT consulted. I spoke to occupational therapist. The patient has been very impulsive with her movements which makes it unsafe for her at home living by herself Consult case management Patient is hoping for rehab placement, however, its unlikely she will qualify (2) Bilateral sacral insufficiency fracture: Plan: Please see above (3) Ambulatory dysfunction: Plan: Please see above (4) Lower back pain: Plan: Please see above (5) Failure to thrive in adult: Plan: Please see above (6) Hypothyroidism: Plan: Continue Synthroid (7) Depression: Plan: Continue paroxetine Plan DVT prophylaxis: Lovenox Full code Hopefully discharge home with home health and home PT Admission and Anticipated Discharge Date Admission Date: July 06, 2024 Subjective patient seen and examined, some mild pain upon ambulation Review of Systems Review of Systems: All systems reviewed are negative, apart from the ones contained in the history. Physical Exam Physical Exam: The patient is awake, alert and oriented 3, well developed and well nourished, normocephalic and atraumatic, lying in bed and in no acute distress. HEENT--PERRL, EOMI, mucous membranes and oropharynx mildly dry Neck--supple. No JVD. No bruits. Thyroid normal, trachea midline, no adenopathy. Heart--normal S1 and S2. No murmurs, rubs or gallops. Lungs--clear bilaterally, no respiratory distress, no accessory muscle use. Abdomen--normal bowel sounds and soft. Extremities--no cyanosis or clubbing. No edema. Dermatologic--normal skin turgor, normal color, no abnormal lymph nodes, no rash. Neurologic--cranial nerves II through XII grossly intact. Rheumatologic--normal range of motion. Psychiatric--normal affect. Results & Data Results & Data Vital Signs (Past 12 Hours) Vital Signs Temp Pulse Resp BP Pulse Ox O2 Del Method 07/08/24 07:48 98.1 F 71 19 147/80 H 94 Room Air PG Care Time/CCT Total # of Minutes Spent Total Time Spent with Patient: Total time spent is greater than 50% in coordination of care (as documented) at patient's floor/unit and/or counseling patient: Coding Level of Care Code 41886 SUB INP/OBS CARE 2/35MIN Diagnoses Spinal stenosis M48.00 Spinal region: unspecified Bilateral sacral insufficiency fracture M84.48XA Ambulatory dysfunction R26.2 Lower back pain M54.50 Back pain laterality: midline Chronicity: acute Sciatica presence: without sciatica Failure to thrive in adult R62.7 Hypothyroidism E03.9 Depression F32.9 Time Spent (min) 35 (1) Spinal stenosis Spinal region: unspecified Qualified Code(s): M48.00 - Spinal stenosis, site unspecified (4) Lower back pain Back pain laterality: midline Chronicity: acute Sciatica presence: without sciatica Qualified Code(s): M54.50 - Low back pain, unspecified
[2024-07-08] MEDS: MoRPHine SULFATE 2 MG/ML CARP IV ONE (23:49)
[2024-07-09 07:45] LABS: Creatinine Clr Calc Pharmacy 62.2 ml/min; Est GFR (African American) 94.7 ml/min; Est GFR (Non-African American) 81.7 ml/min
--- NOTE | 2024-07-09 14:59 | Hospitalist Progress Note ---
Date of Service July 09, 2024 Assessment & Plan (1) Spinal stenosis: Plan: Patient has lumbar spinal stenosis and was evaluated by ortho spine surgeon during the last hospital stay. This was thought to be not amenable to surgery. She was treated for pain control with oxycodone and Tylenol during the hospital stay and was discharged on the same regimen along with a prednisone taper She waited in the hospital for placement however her insurance denied rehab and thus she was sent home. Upon discharge, the patient did not do well and had to come back to the hospital as she was crawling on her knees to get to the phone because the pain was so severe Currently her pain is controlled after the morphine and steroid IV she got in the emergency room I will keep her on oxycodone. She completed her prednisone taper today PT and OT consulted. I spoke to occupational therapist. The patient has been very impulsive with her movements which makes it unsafe for her at home living by herself Consult case management Patient is hoping for rehab placement, however, its unlikely she will qualify -She will benefit from a wheelchair. She unsafe with a walker (2) Bilateral sacral insufficiency fracture: Plan: Please see above (3) Ambulatory dysfunction: Plan: Please see above (4) Lower back pain: Plan: Please see above (5) Failure to thrive in adult: Plan: Please see above (6) Hypothyroidism: Plan: Continue Synthroid (7) Depression: Plan: Continue paroxetine Plan DVT prophylaxis: Lovenox Full code Hopefully discharge home with home health and home PT tomorrow Admission and Anticipated Discharge Date Admission Date: July 08, 2024 Subjective patient seen and examined, some mild pain upon ambulation Review of Systems Review of Systems: All systems reviewed are negative, apart from the ones contained in the history. Physical Exam Physical Exam: The patient is awake, alert and oriented 3, well developed and well nourished, normocephalic and atraumatic, lying in bed and in no acute distress. HEENT--PERRL, EOMI, mucous membranes and oropharynx mildly dry Neck--supple. No JVD. No bruits. Thyroid normal, trachea midline, no adenopathy. Heart--normal S1 and S2. No murmurs, rubs or gallops. Lungs--clear bilaterally, no respiratory distress, no accessory muscle use. Abdomen--normal bowel sounds and soft. Extremities--no cyanosis or clubbing. No edema. Dermatologic--normal skin turgor, normal color, no abnormal lymph nodes, no rash. Neurologic--cranial nerves II through XII grossly intact. Rheumatologic--normal range of motion. Psychiatric--normal affect. Results & Data Results & Data Vital Signs (Past 12 Hours) Vital Signs Temp Pulse Resp BP Pulse Ox O2 Del Method 07/09/24 08:18 98.2 F 62 16 121/74 97 Room Air PG Care Time/CCT Total # of Minutes Spent Total Time Spent with Patient: Total time spent is greater than 50% in coordination of care (as documented) at patient's floor/unit and/or counseling patient: Coding Level of Care Code 69152 SUB INP/OBS CARE 2/35MIN Diagnoses Spinal stenosis M48.00 Spinal region: unspecified Bilateral sacral insufficiency fracture M84.48XA Ambulatory dysfunction R26.2 Lower back pain M54.50 Back pain laterality: midline Chronicity: acute Sciatica presence: without sciatica Failure to thrive in adult R62.7 Hypothyroidism E03.9 Depression F32.9 Time Spent (min) 35 (1) Spinal stenosis Spinal region: unspecified Qualified Code(s): M48.00 - Spinal stenosis, site unspecified (4) Lower back pain Back pain laterality: midline Chronicity: acute Sciatica presence: without sciatica Qualified Code(s): M54.50 - Low back pain, unspecified
[2024-07-09 20:12] VITALS: RESP 18
[2024-07-10 08:08] VITALS: TEMP 98.1; O2SAT 91
[2024-07-10 10:19] VITALS: BP 145/71; PULSE 77
--- NOTE | 2024-07-10 12:26 | Discharge Summary ---
Date of Service July 10, 2024 Admission HPI Per Admitting Provider This is an 84-year-old female who was just hospitalized from 06/26 to 07/03 for back pain, spinal stenosis. Insurance did not approve SNF stay and thus she was discharged to home on Tylenol, oxycodone and prednisone taper. She says that she went home and her pain was unpredictable. She was taking oxycodone but there were times when her pain was intolerable. This morning she went to the bathroom and was in excruciating pain. She could not stand up and had to crawl on her knees to the phone to call 911. In the emergency room, she was given a dose of IV steroid and IV morphine and currently her pain is fairly controlled. She would like to try to go to rehab. Past medical history 1. 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 Not amenable to surgical intervention per orthospine surgeon 2. Bilateral sacral fractures 3. Hypothyroidism 4. Anxiety/depression 6. Single kidney Admission Exam (Per Admitting) Constitutional The patient is awake, alert and oriented 3, well developed and well nourished, normocephalic and atraumatic, lying in bed and in no acute distress. HEENT--PERRL, EOMI, mucous membranes and oropharynx mildly dry Neck--supple. No JVD. No bruits. Thyroid normal, trachea midline, no adenopathy. Heart--normal S1 and S2. No murmurs, rubs or gallops. Lungs--clear bilaterally, no respiratory distress, no accessory muscle use. Abdomen--normal bowel sounds and soft. Extremities--no cyanosis or clubbing. No edema. Dermatologic--normal skin turgor, normal color, no abnormal lymph nodes, no rash. Neurologic--cranial nerves II through XII grossly intact. Rheumatologic--normal range of motion. Psychiatric--normal affect. Discharge Data Consultations 07/06/24 09:25 ED Decision to Admit Stat Hospital Course (1) Spinal stenosis: Patient has lumbar spinal stenosis and was evaluated by ortho spine surgeon during the last hospital stay. This was thought to be not amenable to surgery. She was treated for pain control with oxycodone and Tylenol during the hospital stay and was discharged on the same regimen along with a prednisone taper She waited in the hospital for placement however her insurance denied rehab and thus she was sent home. Upon discharge, the patient did not do well and had to come back to the hospital as she was crawling on her knees to get to the phone because the pain was so severe Currently her pain is controlled after the morphine and steroid IV she got in the emergency room I will keep her on oxycodone. She completed her prednisone taper today PT and OT consulted. I spoke to occupational therapist. The patient has been very impulsive with her movements which makes it unsafe for her at home living by herself Consult case management Patient is hoping for rehab placement, however, its unlikely she will qualify -She will benefit from a wheelchair. She unsafe with a walker (2) Bilateral sacral insufficiency fracture: Please see above (3) Ambulatory dysfunction: Please see above (4) Lower back pain: Please see above (5) Failure to thrive in adult: Please see above (6) Hypothyroidism: Continue Synthroid (7) Depression: Continue paroxetine Plan DVT prophylaxis: Lovenox Full code Hopefully discharge home with home health and home PT tomorrow Coding Level of Care Code 40222 INP/OBS DISCH >30 MIN Diagnoses Spinal stenosis M48.00 Spinal region: unspecified Bilateral sacral insufficiency fracture M84.48XA Ambulatory dysfunction R26.2 Lower back pain M54.50 Back pain laterality: midline Chronicity: acute Sciatica presence: without sciatica Failure to thrive in adult R62.7 Hypothyroidism E03.9 Depression F32.9 Time Spent (min) 35
== END 2024-07-10 11:40 | disposition home health service (06) | DRG 552 ==
LOC: ED 06:23 → EDINP 06:23 → SUATTDRO 09:45 → 3W 12:35